=== PATIENT | female | born 1940 | race Caucasian/White ===

== ENCOUNTER 2016-12-23 13:53 | Emergency (ER) | payer MEDICARE ==
[2016-12-23] MEDS ORDERED: Sodium Chloride 0.9% 1000 ML 1,000 ML IV STA (14:47)
--- NOTE | 2016-12-23 14:47 | ERPHSYRPT ---
- History of Present Illness Time Seen by Provider: 12/23/16 14:36 Source: patient Exam Limitations: no limitations Patient Subjective Stated Complaint: pt here for loose stools since 12/20 , states incont of stool, chills,aches,less than 10 stools a day Triage Nursing Assessment: pt alert, resp easy, skin w/d pale, no edema moves all ext but is weak Physician History: The patient is a 76-year-old female with her son complaining of diarrhea for at least 2 days. At times she says is very watery and mucousy. She has 5-10 stools every day. She denies nausea or vomiting. She states she has abdominal cramps. She also complains of skin irritation around the rectum from constant diarrhea. She states that she had sweats last night and was chilled. Her past medical history is significant for coronary artery disease, gout, high cholesterol, hypertension, hypothyroidism, GERD, and depression. Timing/Duration: day(s) (2) Severity: moderate Modifying Factors: Improves With: nothing Associated Symptoms: abdominal pain (diarrhea), fever Allergies/Adverse Reactions: venom-honey bee [bee venom (honey bee)] Allergy (Intermediate, Verified 11:52) colchicine Allergy (Mild, Verified 04/09/16 11:52) Hives Latex, Natural Rubber Allergy (Mild, Verified 04/09/16 11:52) Rash Sulfa (Sulfonamide Antibiotics) Allergy (Mild, Verified 04/09/16 11:52) Hives Home Medications: Allopurinol 300 mg [Zyloprim 300 mg] 300 mg PO DAILY 12/08/15 [History] Aspirin/Calcium Carbonate/Mag [Aspirin Buffered 325 mg Tab] 325 mg PO DAILY [History] Docusate Sodium [Stool Softener] 100 mg PO Q8HPRN PRN 12/08/15 [History] Fluoxetine HCl [Prozac] 40 mg PO DAILY 12/08/15 [History] Hydrochlorothiazide 25 mg [hydroDIURIL 25 MG] 25 mg PO DAILY 12/08/15 [ History] Levothyroxine Sodium 50 Mcg [Synthroid 50 Mcg] 50 mcg PO DAILY 12/08/15 [ History] Metoprolol Succinate 50 mg [Toprol Xl 50 MG] 50 mg PO DAILY 12/08/15 [ History] Nitroglycerin 0.4 mg Tablet [Nitrostat 0.4 MG Tablet] 0.4 mg SL Q5MIN PRN MR X 3 PRN 12/08/15 [History] Omeprazole 20 MG [Prilosec 20 mg] 20 mg PO BID 12/08/15 [History] Simvastatin 40 mg [Zocor 40 mg] 40 mg PO HS 12/08/15 [History] Torsemide 10 mg PO BID 12/08/15 [History] Fluticasone Propionate [Flonase NASAL] 16 gm NS BID 01/21/16 [History] Hydroxyzine HCl 25 mg [Atarax 25 mg] 25 mg PO QID PRN 01/21/16 [History] Hx Tetanus, Diphtheria Vaccination/Date Given: Yes Hx Influenza Vaccination/Date Given: Yes Hx Pneumococcal Vaccination/Date Given: Yes Immunizations Up to Date: Yes - Review of Systems Constitutional: Fever, Chills Eyes: No Symptoms Ears, Nose, & Throat: No Symptoms Respiratory: No Cough, No Dyspnea Cardiac: No Chest Pain, No Edema, No Syncope Abdominal/Gastrointestinal: Abdominal Pain (cramping), Diarrhea Genitourinary Symptoms: No Dysuria Musculoskeletal: No Back Pain, No Neck Pain Skin: No Rash Neurological: No Dizziness, No Focal Weakness, No Sensory Changes Psychological: No Symptoms Endocrine: No Symptoms Hematologic/Lymphatic: No Symptoms Immunological/Allergic: No Symptoms All Other Systems: Reviewed and Negative - Past Medical History Pertinent Past Medical History: Yes Neurological History: Migraines ENT History: Cataracts Cardiac History: Angina, Congestive Heart Failure, Coronary Artery Disease, High Cholesterol, Hypertension, Peripheral Vascular Disease Respiratory History: Asthma, CHF, COPD, Emphysema, Pneumonia, Other Endocrine Medical History: Hypothyroidism Musculoskeletal History: Degenerative Disk Disease GI Medical History: GERD, Hemorrhoids, Hernia, Polyps History: Other Psycho-Social History: Anxiety, Depression Female Reproductive Disorders: No Pertinent History Other Medical History: RESTRICTIVE LUNG DISEASE, OBESITY, SLEEP APNEA, CHRONIC FATIGUE. frequent UTIs - Past Surgical History Past Surgical History: Yes Neuro Surgical History: No Pertinent History Cardiac: Cardiac Catheterization Respiratory: No Pertinent History Gastrointestinal: Appendectomy, Cholecystectomy Genitourinary: No Pertinent History Musculoskeletal: Orthopedic Surgery Female Surgical History: Hysterectomy Other Surgical History: Bilateral knee surgery. cysts removed from ovaries. - Social History Smoking Status: Former smoker How long have you smoked: 20 years Exposure to second hand smoke: No Drug Use: none Patient Lives Alone: No Significant Family History: no pertinent family hx - Female History Hx Last Menstrual Period: post - Nursing Vital Signs Nursing Vital Signs: Initial Vital Signs Temperature 97.5 F 12/23/16 13:54 Pulse Rate 97 H 12/23/16 13:54 Respiratory Rate 16 12/23/16 13:54 Blood Pressure 154/74 12/23/16 13:54 O2 Sat by Pulse Oximetry 92 L 12/23/16 13:54 Pain Scale Pain Intensity 0 - Physical Exam General Appearance: no apparent distress, alert Eye Exam: PERRL/EOMI, eyes nml inspection Ears, Nose, Throat Exam: normal ENT inspection, TMs normal, pharynx normal, moist mucous membranes Neck Exam: normal inspection, non-tender, supple, full range of motion Respiratory Exam: normal breath sounds, lungs clear, No respiratory distress Cardiovascular Exam: regular rate/rhythm, normal heart sounds, normal peripheral pulses Gastrointestinal/Abdomen Exam: soft (obese) Pelvic Exam: not done Rectal Exam: not done Back Exam: normal inspection, normal range of motion, No CVA tenderness, No vertebral tenderness Extremity Exam: normal inspection, normal range of motion, pelvis stable Neurologic Exam: alert, oriented x 3, cooperative, normal mood/affect, nml cerebellar function, nml station & gait, sensation nml, No motor deficits Skin Exam: normal color, warm, dry, No rash Lymphatic Exam: No adenopathy SpO2 Interpretation: normal SpO2: 92 Oxygen Delivery: Room Air Ordered Tests: Medication Summary Discontinued Medications Generic Name Dose Route Start Last Admin Trade Name Freq PRN Reason Stop Dose Admin Sodium Chloride 1,000 mls @ 999 mls/hr 12/23/16 14:47 12/23/16 14:53 Sodium Chloride 0.9% 1000 Ml IV 12/23/16 15:47 999 mls/hr .Q1H1M STA Administration Sodium Chloride Confirm 12/23/16 14:51 Sodium Chloride 0.9% 1000 Ml Administered 12/23/16 14:52 Dose 1,000 mls @ ud .ROUTE .K-MED ONE Lab/Rad Data: Laboratory Result Diagrams 12/23/16 14:20 12/23/16 14:20 Laboratory Results 12/23/16 12/23/16 12/23/16 Range/Units 16:55 14:47 14:20 WBC (4.0-10.5) K/mm3 RBC (4.1-5.4) M/mm3 Hgb (12.0-16.0) gm/dl Hct (35-47) % MCV (78-100) fl MCH (26-32) pg MCHC (32-36) g/dl RDW (11.5-14.0) % Plt Count (150-450) K/mm3 MPV (6-9.5) fl Segmented Neutrophils (36.0-66.0) % Lymphocytes (Manual) (24-44) % Monocytes (Manual) (0.0-12.0) % Eosinophils (Manual) (0.00-3.0) % Differential Comment Platelet Estimate (NORMAL) Anisocytosis Sodium 143 (136-145) mEq/L Potassium 4.4 (3.5-5.1) mEq/L Chloride 107 (98-107) mEq/L Carbon Dioxide 22.3 (21-32) mEq/L Anion Gap 18.1 H (5-15) MEQ/L BUN 51 H (9-20) mg/dL Creatinine 1.94 H (0.55-1.30) mg/dl Estimated GFR 27 ML/MIN Glucose 128 H (70-110) MG/DL Lactic Acid 0.8 2.4 H (0.4-2.0) Calcium 8.7 (8.5-10.1) mg/dL 12/23/16 Range/Units 14:20 WBC 10.0 (4.0-10.5) K/mm3 RBC 3.37 L (4.1-5.4) M/mm3 Hgb 10.1 L (12.0-16.0) gm/dl Hct 32.7 L (35-47) % MCV 97.0 (78-100) fl MCH 29.9 (26-32) pg MCHC 30.9 L (32-36) g/dl RDW 15.9 H (11.5-14.0) % Plt Count 214 (150-450) K/mm3 MPV 11.1 H (6-9.5) fl Segmented Neutrophils 78 H (36.0-66.0) % Lymphocytes (Manual) 20 L (24-44) % Monocytes (Manual) 1 (0.0-12.0) % Eosinophils (Manual) 1 (0.00-3.0) % Differential Comment ABNORMAL Platelet Estimate NORMAL (NORMAL) Anisocytosis 1+ Sodium (136-145) mEq/L Potassium (3.5-5.1) mEq/L Chloride (98-107) mEq/L Carbon Dioxide (21-32) mEq/L Anion Gap (5-15) MEQ/L BUN (9-20) mg/dL Creatinine (0.55-1.30) mg/dl Estimated GFR ML/MIN Glucose (70-110) MG/DL Lactic Acid (0.4-2.0) Calcium (8.5-10.1) mg/dL - Progress Progress: improved Counseled pt/family regarding: lab results, diagnosis, need for follow-up - Departure Time of Disposition: 17:21 Departure Disposition: Home Clinical Impression: Diarrhea, Dehydration, Acute renal failure Condition: Stable Critical Care Time: No Referrals: PAULO DELONG [Primary Care Provider] - Instructions: Diarrhea and Traveler's Diarrhea -- Adult Additional Instructions: You had diarrhea that cause dehydration. You were given IV fluids in the ER. Continue to stay well hydrated at home. Take ciprofloxacin 500 mg 2 times a day for 3 days. Follow-up as needed. Prescriptions: Ciprofloxacin [Cipro 500 MG] 500 mg PO BID #6 tablet
[2016-12-23] MEDS ORDERED: Sodium Chloride 0.9% 1000 ML 1,000 ML ONE (14:51)
[2016-12-23 14:59] LABS: Lactic Acid 2.4 (0.4-2.0)
[2016-12-23 15:16] LABS: Mean Platelet Volume 11.1 fl (6-9.5); Platelet Count 214 K/mm3 (150-450); Red Blood Count 3.37 M/mm3 (4.1-5.4); Red Cell Distribution Width 15.9 % (11.5-14.0)
[2016-12-23 15:18] LABS: ANION GAP 18.1 MEQ/L (5-15); Carbon Dioxide 22.3 mEq/L (21-32); Mean Corpuscular Hemoglobin 29.9 pg (26-32); Potassium 4.4 mEq/L (3.5-5.1)
[2016-12-23 16:36] LABS: Eosinophil 1 % (0.00-3.0); Total Cells Counted 100
[2016-12-23 16:37] LABS: ANISOCYTOSIS 1+
[2016-12-23 16:38] LABS: Platelet Estimate NORMAL (NORMAL)
[2016-12-23 17:47] VITALS: BP 128/56; PULSE 70
[2016-12-25 10:00] VITALS: O2SAT 92
== END 2016-12-23 17:46 | disposition home or self-care (01) ==
LOC: ED 13:53
DX: R19.7 Diarrhea, unspecified (principal); E86.0 Dehydration; N17.9 Acute kidney failure, unspecified; R10.9 Unspecified abdominal pain; I25.2 Old myocardial infarction; M10.9 Gout, unspecified; E78.00 Pure hypercholesterolemia, unspecified; I10 Essential (primary) hypertension; E03.9 Hypothyroidism, unspecified; K21.9 Gastro-esophageal reflux disease without esophagitis
CPT/HCPCS: 99284; 36000; 96360; 36415; 85025; 80048; 83605; P9612

== ENCOUNTER 2017-09-01 07:59 | Observation (INO) | payer MEDICARE ==
[2017-09-01] MEDS ORDERED: Zofran 4 MG/2 ML VIAL IV ONE (08:37)
[2017-09-01] MEDS ORDERED: Sodium Chloride 0.9% 1000 ML 1,000 ML IV SCH ×2 (08:45→14:54)
--- NOTE | 2017-09-01 08:50 | ERPHSYRPT ---
- History of Present Illness Time Seen by Provider: 09/01/17 08:15 Historian: patient Exam Limitations: clinical condition Patient Subjective Stated Complaint: Emesis and diarrhea x3 days, states "I think I have food posioning." Triage Nursing Assessment: Pt presents to the ED with complaints of abdominal cramping, emesis and diarrhea x3 days. Pt states she believes she ate something bad and has food posioning. No distess noted, skin PWD. Physician History: PATIENT WITH A HISTORY OF CHF, COPD, CORONARY ARTERY DISEASE COMPLAINS OF FREQUENT EPISODES OF EMESIS AND WATERY DIARRHEA X 3 DAYS ASSOCIATED WITH GENERALIZED ABDOMINAL PAIN. DENIES URINARY SYMPTOMS, FEVER OR CHILLS. Timing/Duration: day(s) Quality: cramping Abdominal Pain Onset Location: generalized abdomen Pain Radiation: no radiation Severity of Pain-Max: moderate Severity of Pain-Current: moderate Modifying Factors: Improves With: defecating, vomiting (AND DIARRHEA) Associated Symptoms: diarrhea, vomiting Previous symptoms: no prior history Allergies/Adverse Reactions: venom-honey bee [bee venom (honey bee)] Allergy (Intermediate, Verified 14:06) colchicine Allergy (Mild, Verified 03/19/17 14:06) Hives Latex, Natural Rubber Allergy (Mild, Verified 03/19/17 14:06) Rash Sulfa (Sulfonamide Antibiotics) Allergy (Mild, Verified 03/19/17 14:06) Hives Home Medications: Allopurinol 300 mg [Zyloprim 300 mg] 300 mg PO DAILY 12/08/15 [History] Aspirin/Calcium Carbonate/Mag [Aspirin Buffered 325 mg Tab] 325 mg PO DAILY [History] Docusate Sodium [Stool Softener] 100 mg PO Q8HPRN PRN 12/08/15 [History] Fluoxetine HCl [Prozac] 40 mg PO DAILY 12/08/15 [History] Hydrochlorothiazide 25 mg [hydroDIURIL 25 MG] 25 mg PO DAILY 12/08/15 [ History] Levothyroxine Sodium 50 Mcg [Synthroid 50 Mcg] 50 mcg PO DAILY 12/08/15 [ History] Metoprolol Succinate 50 mg [Toprol Xl 50 MG] 50 mg PO DAILY 12/08/15 [ History] Nitroglycerin 0.4 mg Tablet [Nitrostat 0.4 MG Tablet] 0.4 mg SL Q5MIN PRN MR X 3 PRN 12/08/15 [History] Omeprazole 20 MG [Prilosec 20 mg] 20 mg PO BID 12/08/15 [History] Simvastatin 40 mg [Zocor 40 mg] 40 mg PO HS 12/08/15 [History] Torsemide 10 mg PO BID 12/08/15 [History] Fluticasone Propionate [Flonase NASAL] 16 gm NS BID 01/21/16 [History] Hydroxyzine HCl 25 mg [Atarax 25 mg] 25 mg PO QID PRN 01/21/16 [History] Hx Tetanus, Diphtheria Vaccination/Date Given: Yes Hx Influenza Vaccination/Date Given: Yes Hx Pneumococcal Vaccination/Date Given: Yes Immunizations Up to Date: Yes - Review of Systems Constitutional: No Fever, No Chills Eyes: No Symptoms Ears, Nose, & Throat: No Symptoms Respiratory: No Symptoms, No Cough, No Dyspnea Cardiac: No Symptoms, No Chest Pain, No Edema, No Syncope Abdominal/Gastrointestinal: Abdominal Pain, Nausea, Vomiting, Diarrhea Genitourinary Symptoms: No Symptoms, No Dysuria Musculoskeletal: No Symptoms, No Back Pain, No Neck Pain Skin: No Rash Neurological: No Dizziness, No Focal Weakness, No Sensory Changes Psychological: No Symptoms Endocrine: No Symptoms All Other Systems: Reviewed and Negative - Past Medical History Pertinent Past Medical History: Yes Neurological History: Migraines ENT History: Cataracts Cardiac History: Angina, Congestive Heart Failure, Coronary Artery Disease, High Cholesterol, Hypertension, Peripheral Vascular Disease Respiratory History: Asthma, CHF, COPD, Emphysema, Pneumonia, Other Endocrine Medical History: Hypothyroidism Musculoskeletal History: Degenerative Disk Disease GI Medical History: GERD, Hemorrhoids, Hernia, Polyps History: Other Psycho-Social History: Anxiety, Depression Female Reproductive Disorders: No Pertinent History Other Medical History: RESTRICTIVE LUNG DISEASE, OBESITY, SLEEP APNEA, CHRONIC FATIGUE. frequent UTIs - Past Surgical History Past Surgical History: Yes Neuro Surgical History: No Pertinent History Cardiac: Cardiac Catheterization Respiratory: No Pertinent History Gastrointestinal: Appendectomy, Cholecystectomy Genitourinary: No Pertinent History Musculoskeletal: Orthopedic Surgery Female Surgical History: Hysterectomy Other Surgical History: Bilateral knee surgery. cysts removed from ovaries. - Social History Smoking Status: Former smoker How long have you smoked: 20 years Exposure to second hand smoke: No Drug Use: none Patient Lives Alone: No Significant Family History: no pertinent family hx - Female History Hx Now: No - Nursing Vital Signs Nursing Vital Signs: Initial Vital Signs Temperature 97.9 F 09/01/17 08:06 Pulse Rate 120 H 09/01/17 08:06 Respiratory Rate 16 09/01/17 08:06 Blood Pressure 184/80 09/01/17 08:06 O2 Sat by Pulse Oximetry 94 L 09/01/17 08:06 Pain Scale Pain Intensity 0 - Physical Exam General Appearance: no apparent distress, alert Eye Exam: PERRL/EOMI, eyes nml inspection Ears, Nose, Throat Exam: normal ENT inspection, pharynx normal, moist mucous membranes Neck Exam: normal inspection, non-tender, supple, full range of motion Respiratory Exam: normal breath sounds, lungs clear, No respiratory distress Cardiovascular Exam: regular rate/rhythm, normal heart sounds Gastrointestinal/Abdomen Exam: soft, normal bowel sounds, tenderness ( PERIUMBILICAL TENDERNESS AND LLQ TENDERNESS), No mass Rectal Exam: normal exam, normal rectal tone, other (BROWN STOOL) Back Exam: normal inspection, normal range of motion, No CVA tenderness, No vertebral tenderness Extremity Exam: normal inspection, normal range of motion, pelvis stable, pedal edema (2+ PITTING) Neurologic Exam: alert, oriented x 3, cooperative, normal mood/affect, nml cerebellar function, sensation nml, No motor deficits Skin Exam: normal color, warm, dry SpO2 Interpretation: normal SpO2: 94 Oxygen Delivery: Room Air - CT Exams Abdomen/Pelvis CT Interpretation: Discussed w/radiologist (AGAIN SIGMOID DIVERTICULOSIS WITHOUT DIVERTICULITIS,. ) Ordered Tests: Active Orders 24 hr Category Date Time Status IV Insertion STAT Care 09/01/17 08:37 Active ABDOMEN AND PELVIS W/0 CONTRAS [CT] Stat Exams 09/01/17 08:38 Completed AMYLASE Stat Lab 09/01/17 08:54 Completed BLOOD CULTURE Stat Lab 09/01/17 09:25 Received CBC W DIFF Stat Lab 09/01/17 08:54 Completed CMP Stat Lab 09/01/17 08:54 Completed LIPASE Stat Lab 09/01/17 08:54 Completed Manual Differential NC Stat Lab 09/01/17 08:54 Completed Occult Blood,Stool Other Stat Lab 09/01/17 12:50 Completed PROTIME WITH INR Stat Lab 09/01/17 08:54 Completed Transfer Order Routine Transfer 09/01/17 Ordered Medication Summary Generic Name Dose Route Start Last Admin Trade Name Sadaf PRN Reason Stop Dose Admin Sodium Chloride 1,000 mls @ 250 mls/hr 09/01/17 08:45 09/01/17 09:03 Sodium Chloride 0.9% 1000 Ml IV 10/01/17 08:44 250 mls/hr .Q4H JAMEE Administration Discontinued Medications Generic Name Dose Route Start Last Admin Trade Name Sadaf PRN Reason Stop Dose Admin Ondansetron HCl 4 mg 09/01/17 08:37 09/01/17 09:03 Zofran 4 Mg/2 Ml Vial IV 09/01/17 08:38 4 mg STAT ONE Administration Ondansetron HCl Confirm 09/01/17 08:57 Zofran 4 Mg/2 Ml Vial Administered 09/01/17 08:58 Dose 4 mg .ROUTE .STK-MED ONE Pantoprazole Sodium 40 mg 09/01/17 08:52 09/01/17 09:03 Protonix 40 Mg Iv IV 09/01/17 08:53 40 mg STAT ONE Administration Pantoprazole Sodium Confirm 09/01/17 08:57 Protonix 40 Mg Iv Administered 09/01/17 08:58 Dose 40 mg IV .STK-MED ONE Lab/Rad Data: Laboratory Result Diagrams 09/01/17 08:54 Laboratory Results 09/01/17 09/01/17 09/01/17 Range/Units 12:50 08:54 08:54 WBC (4.0-10.5) K/mm3 RBC (4.1-5.4) M/mm3 Hgb (12.0-16.0) gm/dl Hct (35-47) % MCV (78-100) fl MCH (26-32) pg MCHC (32-36) g/dl RDW (11.5-14.0) % Plt Count (150-450) K/mm3 MPV (6-9.5) fl Segmented Neutrophils (36.0-66.0) % Band Neutrophils (0.0-2.0) % Lymphocytes (Manual) (24-44) % Monocytes (Manual) (0.0-12.0) % Eosinophils (Manual) (0.00-3.0) % Platelet Estimate (NORMAL) RBC Morphology PT 13.2 H (9.95-12.35) SECONDS INR 1.19 (0.8-3.0) Anion Gap (5-15) MEQ/L Stool Occult Blood NEGATIVE (Negative) 09/01/17 Range/Units 08:54 WBC 9.4 (4.0-10.5) K/mm3 RBC 4.13 (4.1-5.4) M/mm3 Hgb 12.0 (12.0-16.0) gm/dl Hct 38.3 (35-47) % MCV 92.7 (78-100) fl MCH 29.1 (26-32) pg MCHC 31.3 L (32-36) g/dl RDW 15.5 H (11.5-14.0) % Plt Count 205 (150-450) K/mm3 MPV 11.6 H (6-9.5) fl Segmented Neutrophils 73 H (36.0-66.0) % Band Neutrophils 5 H (0.0-2.0) % Lymphocytes (Manual) 8 L (24-44) % Monocytes (Manual) 7 (0.0-12.0) % Eosinophils (Manual) 7 H (0.00-3.0) % Platelet Estimate NORMAL (NORMAL) RBC Morphology NORMAL PT (9.95-12.35) SECONDS INR (0.8-3.0) Anion Gap (5-15) MEQ/L Stool Occult Blood (Negative) - Progress Progress Note: 09/01/17 08:51 IV NORMAL SALINE 250MG/HR, ZOFRAN 4MG IV, PROTONIX 40MG IV Discussed with Dr.: Lennon (DISCUSSED WITH DR LENNON AT 1348 FOR OBSERVATION) - Departure Time of Disposition: 14:00 Departure Disposition: Observation Clinical Impression: INTRACTABLE EMESIS AND DIARRHEA, DEHYDRATION Condition: Stable Critical Care Time: No Referrals: PAULO LENNON [Primary Care Provider] -
[2017-09-01] MEDS ORDERED: PROTONIX 40 MG IV IV ONE ×2 (08:52→08:57)
[2017-09-01] MEDS ORDERED: Zofran 4 MG/2 ML VIAL ONE (08:57)
[2017-09-01] MEDS ORDERED: Sodium Chloride 0.9% 1000 ML 1,000 ML ONE (08:58)
[2017-09-01 09:03] LABS: Hematocrit 38.3 % (35-47); Mean Cell Volume 92.7 fl (78-100); Mean Corpuscular Hemoglobin 29.1 pg (26-32); Mean Corpuscular Hgb Concent. 31.3 g/dl (32-36); Mean Platelet Volume 11.6 fl (6-9.5); Platelet Count 205 K/mm3 (150-450); Red Blood Count 4.13 M/mm3 (4.1-5.4); Red Cell Distribution Width 15.5 % (11.5-14.0); White Blood Count 9.4 K/mm3 (4.0-10.5)
[2017-09-01 09:10] LABS: INR 1.19 (0.8-3.0)
[2017-09-01 09:50] LABS: BAND 5 % (0.0-2.0); Eosinophil 7 % (0.00-3.0); Lymphocytes 8 % (24-44); Monocyte 7 % (0.0-12.0); Neutrophils 73 % (36.0-66.0); Platelet Estimate NORMAL (NORMAL); Total Cells Counted 100
--- NOTE | 2017-09-01 09:59 | XRAY ---
Indication: Nausea and vomiting. Multiple contiguous axial images obtained through the abdomen and pelvis without contrast as ordered. Comparison: July 10, 2008. Lung bases demonstrate minimal bibasilar dependent atelectasis. No infiltrate or effusion. Heart is not enlarged. Noncontrasted stomach and bowel loops appear nonobstructed. Again minimal sigmoid diverticulosis without diverticulitis. Previous reported appendectomy, hysterectomy, and cholecystectomy. No free fluid/air. Stable fatty liver and small exophytic right renal cyst. Remaining pancreas, spleen, adrenal glands, kidneys, ureters, and bladder appear unremarkable for noncontrast exam. There remains mild aortoiliac calcifications without AAA. Osseous structures intact again with advanced multilevel degenerative spondylosis, mild scoliosis, and mild bilateral hip degenerative arthropathy. Impression: 1. Again sigmoid diverticulosis without diverticulitis. 2. Stable fatty liver and small right renal cyst. 3. No new or acute intra-abdominal/pelvic abnormalities on this noncontrast exam. CT DI 27.16
[2017-09-01] MEDS ORDERED: NORCO 7.5/325 MG TAB PO PRN (14:54)
[2017-09-01] MEDS ORDERED: Nitrostat 0.4 MG Tablet SL PRN (14:54)
[2017-09-01] MEDS ORDERED: Zofran 4 MG/2 ML VIAL IV PRN (14:54)
[2017-09-01] MEDS ORDERED: D5W/0.45NS W/ 20mEq KCl 1000 ML 1,000 ML IV SCH (17:00)
[2017-09-01 19:05] LABS: INFLUENZA A NEGATIVE (NEGATIVE); INFLUENZA B NEGATIVE (NEGATIVE); RESPIRATORY SYNCTIAL VIRUS NEGATIVE (Negative)
[2017-09-01] MEDS ORDERED: ZYLOPRIM 300 MG PO SCH (22:00)
[2017-09-01] MEDS: Toprol Xl 50 MG PO SCH (22:21)
[2017-09-02 06:11] LABS: Granulocyte Absolute (ANC) 3.59 (1.4-6.9); Hematocrit 31.8 % (35-47); Hemoglobin 9.7 gm/dl (12.0-16.0); Mean Cell Volume 94.9 fl (78-100); Mean Corpuscular Hgb Concent. 30.5 g/dl (32-36); Mean Platelet Volume 10.4 fl (6-9.5); Platelet Count 163 K/mm3 (150-450); Red Blood Count 3.35 M/mm3 (4.1-5.4); Red Cell Distribution Width 15.6 % (11.5-14.0)
[2017-09-02 06:26] LABS: Mean Corpuscular Hemoglobin 28.9 pg (26-32)
[2017-09-02 06:32] LABS: ALBUMIN 3.2 g/dL (3.5-5.0); ANION GAP 13.9 MEQ/L (5-15); BILIRUBIN,TOTAL 0.2 mg/dL (0.2-1.3); Calcium 8.1 mg/dL (8.4-10.2); Creatinine 1 1.65 mg/dL (0.52-1.04); Potassium 4.9 mmol/L (3.5-5.1); Total Protein 5.8 g/dL (6.3-8.2)
--- NOTE | 2017-09-02 08:07 | PCM.DCORD ---
- Discharge Discharge Date: 09/02/17 Prescriptions: No Action Omeprazole 20 MG [Prilosec 20 mg] 20 mg PO BID Simvastatin 40 mg [Zocor 40 mg] 40 mg PO HS Metoprolol Succinate 50 mg [Toprol Xl 50 MG] 50 mg PO DAILY Aspirin/Calcium Carbonate/Mag [Aspirin Buffered 325 mg Tab] 325 mg PO DAILY Nitroglycerin 0.4 mg Tablet [Nitrostat 0.4 MG Tablet] 0.4 mg SL Q5MIN PRN MR X 3 PRN PRN Reason: Chest Pain Allopurinol 300 mg [Zyloprim 300 mg] 300 mg PO HS Fluticasone Propionate [Flonase NASAL] 16 gm NS BIDPRN PRN PRN Reason: Allergies Irbesartan [Irbesartan] 1 tab PO DAILY Prednisone [Prednisone] 5 mg PO DAILY Ergocalciferol (Vitamin D2) [Vitamin D] 50,000 unit PO UD Follow up with: PAULO DELONG [Primary Care Provider] - 1 Week
[2017-09-02 08:54] LABS: BAND 1 % (0.0-2.0); Eosinophil 9 % (0.00-3.0); Lymphocytes 37 % (24-44); Metamyelocyte 1 %; Monocyte 3 % (0.0-12.0); Neutrophils 49 % (36.0-66.0); Total Cells Counted 100
[2017-09-02 08:58] LABS: Platelet Estimate NORMAL (NORMAL)
[2017-09-02 08:59] LABS: Hypochromia 1+
[2017-09-02] MEDS ORDERED: PROTONIX 40 MG IV IV SCH (10:00)
[2017-09-02] MEDS ORDERED: Prozac 20 MG PO SCH (10:00)
[2017-09-02] MEDS ORDERED: SYNTHROID 50 MCG PO SCH (10:00)
[2017-09-02] MEDS ORDERED: Lopressor 50 MG PO SCH (10:00)
[2017-09-02] MEDS: Toprol Xl 50 MG PO SCH (11:04)
[2017-09-02 11:23] VITALS: BP 130/56; PULSE 83; O2SAT 95
--- NOTE | 2017-09-04 09:39 | SSS ---
DISCHARGE DIAGNOSES: 1) GASTROENTERITIS. 2) DEHYDRATION. HISTORY: The patient is a 77 year-old white female who reports that she had eaten at the [employer] and afterwards a few hours later she began having sharp epigastric abdominal pain followed by vomiting and diarrhea. The patient presented to the emergency room and subsequently admitted to the hospital for IV fluid hydration. PAST MEDICAL/SURGICAL HISTORY: Significant for coronary artery disease, chronic obstructive pulmonary disease. HOME MEDICATIONS: Allopurinol, aspirin, fluoxetine, hydrodiuril, levofloxacin, metoprolol, nitroglycerin, omeprazole, Simvastatin, Torsemide, fluticasone, hydroxyzine. ALLERGIES: BEE VENUM. COLCHICINE, LATEX, SULFA. PHYSICAL EXAMINATION: Revealed a morbidly obese, white female in no obvious distress. Her vital signs showed a temperature of 97.9F, pulse 120, respiratory rate 16, blood pressure 184/80. O2 saturation 94% on room air on admission from the emergency room. Most recent vital signs showed her temperature to be 98.1F, pulse 77, respiratory rate 20, blood pressure 124/54. O2 saturation 95% on room air. HEENT: Normocephalic, atraumatic. Pupils equal round reactive to light. Extraocular movements intact. Oropharynx is pink and moist. NECK: Supple without lymphadenopathy, thyromegaly or JVD. CHEST: Clear to auscultation with good air movement bilaterally. HEART: Regular rate and rhythm without murmurs, rubs or gallops. ABDOMEN: Minimally tender in the epigastric region presently. No palpable masses are felt. EXTREMITIES: Without clubbing, cyanosis or edema. NEUROLOGIC: The patient is alert and oriented x3. LAB DATA AND TESTS: Showed influenza A, B and respiratory syncytial virus to be negative. Occult blood in the stool was negative. She had BUN 31, creatinine 1.6. Electrolytes were normal. Liver enzymes were normal. Lipase was normal. She had a CBC showing hemoglobin 12.0, white blood cell count 9,400, PLT count 205,000. There did appear to be a left shift with 5 bands and 73 polys. Amylase 22. The patient had CT scan showing sigmoid diverticulosis without diverticulitis, stable fatty liver. No new acute intra-abdominal or pelvic abnormalities were seen on noncontrast examination. HOSPITAL COURSE: The patient was given IV fluids and was feeling much better after the first liter of fluids but was kept overnight for further evaluation and management. She had no further vomiting or diarrhea. She was able to take clear liquids. A repeat laboratory study showed her BUN 29, creatinine 1.65, sugar 114 fasting. Her white blood cell count was 7,000. Her hemoglobin had dropped to 9.7 which we felt was dilutional since the occult blood stools were negative. The PLT count was 163,000. The patient is looking back to her normal state of health and thought to be ready for discharge home. DISCHARGE PLANS: The patient will be discharged home on her usual home medications as listed above. She will have follow up appointment in the office in one week. She is to call if she has any further problems in the interim.
== END 2017-09-02 13:30 | disposition home or self-care (01) ==
LOC: ED 07:59 → MED SURG 14:51
PROVIDERS: ADMIT Family Medicine; ATTEND Family Medicine
DX: K52.9 Noninfective gastroenteritis and colitis, unspecified (principal); E86.0 Dehydration; I25.10 Atherosclerotic heart disease of native coronary artery without angina pectoris; J44.9 Chronic obstructive pulmonary disease, unspecified; Z79.899 Other long term (current) drug therapy; E66.01 Morbid (severe) obesity due to excess calories
CPT/HCPCS: 36000; 36415; 74176; 80053; 82150; 82272; 83690; 85025; 85610; 87040; 87631; 94660; 94760; 96360; 96361; 96374; 96375; 99285; G0378; 96365; 99284; J2405; A9270-GY

== ENCOUNTER 2019-06-29 17:07 | Observation (INO) | payer MEDICARE ==
--- NOTE | 2019-06-29 17:22 | ERPHSYRPT ---
- History of Present Illness Time Seen by Provider: 06/29/19 17:21 Source: patient Exam Limitations: no limitations Physician History: Patient is a 79-year-old female with a past medical history significant for CHF , COPD, hypertension, chronic bilateral lower extremity edema, and gout presents with a chief complaint of nausea, vomiting in addition to diarrhea. Onset reportedly was in the beginning half either the first or second week of May 2019. She reports having multiple episodes of nonbilious/nonbloody vomiting in addition to nonbloody diarrhea since that time. She also endorsed feeling generalized weakness and reportedly has not had the strength to get out of bed to be evaluated. She has not followed up with her primary care provider because she states that her provider is out of town who will not be back until July of this year. She currently lives with a roommate who encouraged her to come to the emergency department to get evaluated. She denied having increased shortness of breath beyond her baseline and uses supplemental oxygen via nasal cannula 2 L/min. She denies fever, chills, recent travel outside of the country and recent sick contacts. She denies recent antibiotic use. Poorly takes aspirin daily, specifically 325 mg for her aches and pains which she complained about today, specifically her neck and lower back. Denies taking anticoagulants. She endorsed not being compliant with a low-sodium diet and reportedly has been taking her Lasix as prescribed. She endorsed wearing compression stockings but does not wear these daily and reports that she wears these every other day. Allergies/Adverse Reactions: venom-honey bee [bee venom (honey bee)] Allergy (Intermediate, Verified 14:06) colchicine Allergy (Mild, Verified 03/19/17 14:06) Hives Latex, Natural Rubber Allergy (Mild, Verified 03/19/17 14:06) Rash Sulfa (Sulfonamide Antibiotics) Allergy (Mild, Verified 03/19/17 14:06) Hives Home Medications: Allopurinol 300 mg [Zyloprim 300 mg] 300 mg PO HS 12/08/15 [History] Aspirin/Calcium Carbonate/Mag [Aspirin Buffered 325 mg Tab] 325 mg PO DAILY [History] Metoprolol Succinate 50 mg [Toprol Xl 50 MG] 50 mg PO DAILY 12/08/15 [ History] Nitroglycerin 0.4 mg Tablet [Nitrostat 0.4 MG Tablet] 0.4 mg SL Q5MIN PRN MR X 3 PRN 12/08/15 [History] Simvastatin 40 mg [Zocor 40 mg] 40 mg PO HS 12/08/15 [History] Fluticasone Propionate [Flonase NASAL] 16 gm NS BIDPRN PRN 01/21/16 [ History] Ergocalciferol (Vitamin D2) [Vitamin D] 50,000 unit PO UD 09/01/17 [History] Irbesartan 1 tab PO DAILY 09/01/17 [History] predniSONE [Prednisone] 5 mg PO DAILY 09/01/17 [History] Famotidine 20 mg [Pepcid 20 MG] 1 tab PO BID 09/02/17 [History] Fluticasone/Salmeterol [Advair 100-50 Diskus] 1 each IH DAILY 06/29/19 [History] Furosemide [Lasix] 40 mg PO BID 06/29/19 [History] Levothyroxine Sodium 25 mg PO DAILY 06/29/19 [History] Hx Tetanus, Diphtheria Vaccination/Date Given: Yes Hx Influenza Vaccination/Date Given: Yes Hx Pneumococcal Vaccination/Date Given: Yes - Review of Systems Constitutional: Weakness, No Fever, No Chills Eyes: No Symptoms Ears, Nose, & Throat: No Symptoms Respiratory: Dyspnea Cardiac: No Symptoms, Edema, Orthopnea, No Palpitations, No PND Abdominal/Gastrointestinal: Nausea, Vomiting, Diarrhea, No Abdominal Pain, No Hematemesis, No Hematochezia Genitourinary Symptoms: No Dysuria, No Frequency Musculoskeletal: Back Pain, Neck Pain Skin: No Symptoms Neurological: No Symptoms Psychological: No Symptoms All Other Systems: Reviewed and Negative - Past Medical History Pertinent Past Medical History: Yes Neurological History: Migraines ENT History: Cataracts Cardiac History: Angina, Congestive Heart Failure, Coronary Artery Disease, High Cholesterol, Hypertension, Peripheral Vascular Disease Respiratory History: Asthma, CHF, COPD, Emphysema, Pneumonia, Other Endocrine Medical History: Hypothyroidism Musculoskeletal History: Degenerative Disk Disease GI Medical History: GERD, Hemorrhoids, Hernia, Polyps History: Other Psycho-Social History: Anxiety, Depression Female Reproductive Disorders: No Pertinent History Other Medical History: RESTRICTIVE LUNG DISEASE, OBESITY, SLEEP APNEA, CHRONIC FATIGUE. frequent UTIs - Past Surgical History Past Surgical History: Yes Neuro Surgical History: No Pertinent History Cardiac: Cardiac Catheterization Respiratory: No Pertinent History Gastrointestinal: Appendectomy, Cholecystectomy Genitourinary: No Pertinent History Musculoskeletal: Orthopedic Surgery Female Surgical History: Hysterectomy Other Surgical History: Bilateral knee surgery. cysts removed from ovaries. - Social History Smoking Status: Former smoker How long have you smoked: 20 years Exposure to second hand smoke: No Drug Use: none Patient Lives Alone: No Significant Family History: no pertinent family hx - Nursing Vital Signs Nursing Vital Signs: Initial Vital Signs Temperature 97.9 F 06/29/19 17:22 Pulse Rate 103 H 06/29/19 17:22 Respiratory Rate 26 H 06/29/19 17:22 Blood Pressure 115/57 06/29/19 17:22 O2 Sat by Pulse Oximetry 95 06/29/19 17:22 Pain Scale Pain Intensity 6 - Physical Exam General Appearance: no apparent distress, alert, obese, other (The patient was sitting up in bed and appeared to be in no obvious distress) Eye Exam: PERRL/EOMI, No EOM palsy/anisocoria Ears, Nose, Throat Exam: normal ENT inspection, pharynx normal, dry mucous membranes, TM abnormal (R), TM abnormal (L), No pharyngeal erythema, No tonsillar exudate Neck Exam: normal inspection, non-tender, supple, No meningismus Respiratory Exam: diminished breath sounds, crackles/rales, No chest tenderness , No respiratory distress, No accessory muscle use, No rhonchi, No wheezing Cardiovascular Exam: normal heart sounds, tachycardia, capillary refill <2 sec, edema, other (2-3+ bilateral lower extremity edema), No pulse deficit Gastrointestinal/Abdomen Exam: soft, distention, No tenderness, No mass, No guarding, No rebound Pelvic Exam: not done Rectal Exam: deferred Back Exam: normal inspection Extremity Exam: pedal edema, swelling, tenderness, other (2-3+ bilateral lower extremity pitting edema consistent with chronic lymphedema) Neurologic Exam: alert, oriented x 3, cooperative, other (No focal weakness or motor deficit) Skin Exam: warm, dry, pale, No rash, No petechiae, No jaundice O2 Delivery: Nasal Cannula - Course Nursing assessment & vital signs reviewed: Yes - Radiology Exams Chest X-ray Interpretation: Interpreted by me, Reviewed by me (? bilateral mild interstitial edema, awaiting formal radiology review), No Pneumonia, No Pneumothorax Ordered Tests: Active Orders 24 hr Category Date Time Status EKG-ER Only STAT Care 06/29/19 18:01 Active IV Insertion STAT Care 06/29/19 18:01 Active PO Fluid Challenge STAT Care 06/29/19 18:[address] in Observation ROUTINE Care 06/29/19 19:52 Active CHEST 2 VIEWS (PA AND LAT) Stat Exams 06/29/19 18:00 Taken BMP Stat Lab 06/29/19 18:05 Completed CBC W DIFF Stat Lab 06/29/19 18:05 Completed Hepatic Function Panel Stat Lab 06/29/19 18:05 Completed LIPASE Stat Lab 06/29/19 18:05 Completed NT PRO BNP Stat Lab 06/29/19 18:05 Completed SALICYLATE Stat Lab 06/29/19 17:15 Completed TROPONIN Stat Lab 06/29/19 18:05 Completed UA W/RFX UR CULTURE Stat Lab 06/29/19 18:00 Uncollected Transfer Order Routine Transfer 06/29/19 Ordered Medication Summary Discontinued Medications Generic Name Dose Route Start Last Admin Trade Name Nachoq PRN Reason Stop Dose Admin Ondansetron HCl 4 mg 06/29/19 18:01 06/29/19 18:07 Zofran 4 Mg/2 Ml Vial IV 06/29/19 18:02 4 mg STAT ONE Administration Ondansetron HCl Confirm 06/29/19 18:06 Zofran 4 Mg/2 Ml Vial Administered 06/29/19 18:07 Dose 4 mg .ROUTE .STK-MED ONE Lab/Rad Data: Laboratory Result Diagrams 06/29/19 18:05 06/29/19 18:05 Laboratory Results 06/29/19 06/29/19 06/29/19 Range/Units 18:05 18:05 18:05 WBC 8.3 (4.0-10.5) K/mm3 RBC 3.48 L (4.1-5.4) M/mm3 Hgb 10.0 L (12.0-16.0) gm/dl Hct 32.9 L (35-47) % MCV 94.5 (78-100) fl MCH 28.7 (26-32) pg MCHC 30.4 L (32-36) g/dl RDW 18.0 H (11.5-14.0) % Plt Count 309 (150-450) K/mm3 MPV 12.0 H (7.5-11.0) fl Gran % 51.1 (36.0-66.0) % Eos # (Auto) 1.10 H (0-0.5) Absolute Lymphs (auto) 1.75 (1.0-4.6) Absolute Monos (auto) 0.68 (0.0-1.3) Lymphocytes % 21.1 L (24.0-44.0) % Monocytes % 8.2 (0.0-12.0) % Eosinophils % 13.3 H (0.00-5.0) % Basophils % 6.3 (0.0-0.4) % Absolute Granulocytes 4.24 (1.4-6.9) Basophils # 0.52 H (0-0.4) Sodium 139 (137-145) mmol/L Potassium 4.0 (3.5-5.1) mmol/L Chloride 108 H (98-107) mmol/L Carbon Dioxide 17 L (22-30) mmol/L Anion Gap 17.5 H (5-15) MEQ/L BUN 24 H (7-17) mg/dL Creatinine 1.58 H (0.52-1.04) mg/dL Estimated GFR 33.7 ML/MIN Glucose 126 H (74-106) mg/dL Calcium 9.3 (8.4-10.2) mg/dL Total Bilirubin 0.60 (0.2-1.3) mg/dL Direct Bilirubin 0.3 (0.0-0.4) mg/dL AST 31 (14-36) U/L ALT 19 (0-35) U/L Alkaline Phosphatase 116 (38-126) U/L Troponin I 0.012 (0.000-0.034) ng/mL NT-Pro-B Natriuret Pep 897 (0-1800) pg/mL Serum Total Protein 7.1 (6.3-8.2) g/dL Albumin 3.7 (3.5-5.0) g/dL Lipase 38 (23-300) U/L Salicylates (2-20) mg/dL 06/29/19 Range/Units 17:15 WBC (4.0-10.5) K/mm3 RBC (4.1-5.4) M/mm3 Hgb (12.0-16.0) gm/dl Hct (35-47) % MCV (78-100) fl MCH (26-32) pg MCHC (32-36) g/dl RDW (11.5-14.0) % Plt Count (150-450) K/mm3 MPV (7.5-11.0) fl Gran % (36.0-66.0) % Eos # (Auto) (0-0.5) Absolute Lymphs (auto) (1.0-4.6) Absolute Monos (auto) (0.0-1.3) Lymphocytes % (24.0-44.0) % Monocytes % (0.0-12.0) % Eosinophils % (0.00-5.0) % Basophils % (0.0-0.4) % Absolute Granulocytes (1.4-6.9) Basophils # (0-0.4) Sodium (137-145) mmol/L Potassium (3.5-5.1) mmol/L Chloride (98-107) mmol/L Carbon Dioxide (22-30) mmol/L Anion Gap (5-15) MEQ/L BUN (7-17) mg/dL Creatinine (0.52-1.04) mg/dL Estimated GFR ML/MIN Glucose (74-106) mg/dL Calcium (8.4-10.2) mg/dL Total Bilirubin (0.2-1.3) mg/dL Direct Bilirubin (0.0-0.4) mg/dL AST (14-36) U/L ALT (0-35) U/L Alkaline Phosphatase (38-126) U/L Troponin I (0.000-0.034) ng/mL NT-Pro-B Natriuret Pep (0-1800) pg/mL Serum Total Protein (6.3-8.2) g/dL Albumin (3.5-5.0) g/dL Lipase (23-300) U/L Salicylates < 1.0 L (2-20) mg/dL - Progress Progress: improved Progress Note: 06/29/19 20:56 Nontoxic in appearance. Labs, chest x-ray were reviewed. The patient also appears to be somewhat volume overloaded however her labs support a possible dehydration component with evidence of a mild anion gap acidosis in addition to decreasing bicarb and mild acute on chronic CKD kidney injury. A salicylate level was ordered to rule out the potential for chronic salicylate toxicity and was ultimately negative. Her chest x-ray showed possible bilateral mild interstitial edema however there is no evidence of obvious pneumonia and I am currently awaiting formal radiology review at this time. I have a low suspicion for PE or ACS equivalent at this time. Her cardiac markers and BNP were reviewed and relatively reassuring. She was treated with ondansetron emergency department and reportedly was feeling better and able to tolerate drinking a cup of water without difficulty. She was not comfortable with being discharged home nor was her roommate given the fact that she has had generalized weakness and reportedly is had trouble walking at home. I spoke to the on-call family medicine physician who agreed to admit for observation and recommended administering normal saline at 50 cc/h in addition to having the patient on a cardiac diet which was ordered by me. Only have a low suspicion for DVT at this time and her lower extremity swelling and edema is consistent with what appears to be chronic lymphedema which I suspect may be from medication noncompliance in addition to noncompliance with her compression stockings in addition to noncompliance with a low-sodium diet. Is unclear if she has been taking her Lasix as prescribed however I do not see this listed in her medication list on intake. Discussed with : Thierry (Admit for observationa administer NS at 50 cc/hr) Will see patient in: hospital (observation) Counseled pt/family regarding: lab results, diagnosis, rad results - Departure Departure Disposition: Home, Observation, Extended Care Facility Clinical Impression: Nausea and vomiting, Diarrhea, Dehydration, Increased anion gap metabolic acidosis, Chronic acquired lymphedema, Normocytic anemia, [id number] kidney injury Condition: Good Critical Care Time: No Referrals: PAULO DELONG [ACTIVE STAFF] -
[2019-06-29] MEDS ORDERED: Zofran 4 MG/2 ML VIAL IV ONE (18:01)
[2019-06-29] MEDS ORDERED: Zofran 4 MG/2 ML VIAL ONE (18:06)
[2019-06-29 18:08] LABS: Absolute Neutrophil Ct (ANC) 4.24 (1.4-6.9); BASOPHIL % 6.3 % (0.0-0.4); Basophil (Absolute #) 0.52 (0-0.4); Eosinophil % 13.3 % (0.00-5.0); Hematocrit 32.9 % (35-47); Lymphocyte (Absolute #) 1.75 (1.0-4.6); Lymphocytes % 21.1 % (24.0-44.0); Mean Cell Volume 94.5 fl (78-100); Mean Corpuscular Hemoglobin 28.7 pg (26-32); Mean Corpuscular Hgb Concent. 30.4 g/dl (32-36); Monocyte (Absolute #) 0.68 (0.0-1.3); Monocytes % 8.2 % (0.0-12.0); Neutrophil % 51.1 % (36.0-66.0); Platelet Count 309 K/mm3 (150-450); Red Blood Count 3.48 M/mm3 (4.1-5.4); White Blood Count 8.3 K/mm3 (4.0-10.5)
[2019-06-29 18:27] LABS: ALBUMIN 3.7 g/dL (3.5-5.0); ANION GAP 17.5 MEQ/L (5-15); BILIRUBIN,TOTAL 0.6 mg/dL (0.2-1.3); Calcium 9.3 mg/dL (8.4-10.2); Creatinine 1 1.58 mg/dL (0.52-1.04); Direct Bilirubin 0.3 mg/dL (0.0-0.4); TROPONIN 0.012 ng/mL (0.000-0.034); Total Protein 7.1 g/dL (6.3-8.2)
[2019-06-29] MEDS ORDERED: Zofran 4 MG/2 ML VIAL IV PRN (21:57)
[2019-06-29] MEDS ORDERED: Sodium Chloride 0.9% 1000 ML 1,000 ML IV SCH (21:57)
[2019-06-29] MEDS ORDERED: PROVENTIL 2.5 MG/3 ML NEB IH PRN (21:57)
[2019-06-29] MEDS ORDERED: ZOCOR 20MG PO SCH (23:00)
[2019-06-29] MEDS ORDERED: ZYLOPRIM 300 MG PO SCH (23:00)
[2019-06-29] MEDS: Lasix 40 MG PO SCH (23:22)
[2019-06-29] MEDS: Pepcid 20 MG PO SCH (23:22)
[2019-06-30 05:08] LABS: ANION GAP 12.3 MEQ/L (5-15); Calcium 8.8 mg/dL (8.4-10.2); Creatinine 1 1.7 mg/dL (0.52-1.04); Potassium 4.3 mmol/L (3.5-5.1)
[2019-06-30 05:12] LABS: Absolute Neutrophil Ct (ANC) 3.85 (1.4-6.9); BASOPHIL % 5.9 % (0.0-0.4); Basophil (Absolute #) 0.47 (0-0.4); Eosinophil % 11.9 % (0.00-5.0); Eosinophil (Absolute #) 0.95 (0-0.5); Hematocrit 31.2 % (35-47); Hemoglobin 9.4 gm/dl (12.0-16.0); Lymphocyte (Absolute #) 1.88 (1.0-4.6); Lymphocytes % 23.6 % (24.0-44.0); Mean Cell Volume 94.8 fl (78-100); Mean Corpuscular Hemoglobin 28.6 pg (26-32); Mean Corpuscular Hgb Concent. 30.1 g/dl (32-36); Mean Platelet Volume 11.7 fl (7.5-11.0); Monocyte (Absolute #) 0.82 (0.0-1.3); Monocytes % 10.3 % (0.0-12.0); Neutrophil % 48.3 % (36.0-66.0); Platelet Count 301 K/mm3 (150-450); Red Blood Count 3.29 M/mm3 (4.1-5.4); Red Cell Distribution Width 17.8 % (11.5-14.0)
[2019-06-30] MEDS ORDERED: ADVAIR HFA 45/21 COMMON CANISTER IH SCH (07:00)
[2019-06-30] MEDS ORDERED: Nitrostat 0.4 MG Tablet SL PRN (07:17)
[2019-06-30] MEDS ORDERED: Colace 100 MG PO PRN (07:17)
[2019-06-30] MEDS ORDERED: Flonase NASAL NS PRN (07:17)
[2019-06-30 07:30] VITALS: O2SAT 97
--- NOTE | 2019-06-30 08:50 | XRAY ---
Indication: Dyspnea. Comparison: None AP/lateral chest inflated without focal infiltrate, consolidation, or large effusion. Heart and mediastinal structures within normal limits. Stable focal eventration of the right hemidiaphragm. Bony thorax again demonstrates mild degenerative changes with interval widening of the right AC joint. Impression: Nonacute chest with chronic features.
[2019-06-30 09:47] LABS: Bacteria FEW /HPF (NEGATIVE); Bilirubin NEGATIVE (NEGATIVE); Blood LARGE Ery/ul (0-5); Epithelial Cells RARE /HPF (FEW); Glucose NEGATIVE (NEGATIVE); Hyaline Casts 26-50 /LPF (0-2); Ketones NEGATIVE (NEGATIVE); Leukocyte Esterase LARGE (NEGATIVE); Mucus SLIGHT /HPF (NEGATIVE); Nitrite NEGATIVE (NEGATIVE); Protein,Urine Dip NEGATIVE (Negative); Specific Gravity 1.008 (1.005-1.025); Urobilinogen NEGATIVE mg/dL (0-1)
[2019-06-30 09:49] LABS: Appearance HAZY (CLEAR)
[2019-06-30] MEDS ORDERED: Avapro 150 MG PO SCH (10:00)
[2019-06-30] MEDS ORDERED: Toprol Xl 50 MG PO SCH (10:00)
[2019-06-30] MEDS ORDERED: NON-FORMULARY ITEM (Fluticasone/Salmeterol [Advair 100-50 Diskus] 1 EACH) IH SCH (10:00)
[2019-06-30] MEDS ORDERED: NON-FORMULARY ITEM (Aspirin [Aspirin] 325 MG) PO SCH (10:00)
[2019-06-30] MEDS ORDERED: DELTASONE 5 MG PO SCH (10:00)
[2019-06-30] MEDS ORDERED: Ecotrin 325 MG PO SCH (10:00)
[2019-06-30] MEDS: Lasix 40 MG PO SCH (10:09)
[2019-06-30] MEDS: Pepcid 20 MG PO SCH (10:09)
[2019-06-30 11:48] LABS: 027 TOX PROD PRESUMPTIVE NEGATIVE (NEGATIVE); TOXIGENIC C. DIFF ORG NEGATIVE (NEGATIVE)
[2019-06-30 12:30] VITALS: BP 126/67; PULSE 86
--- NOTE | 2019-06-30 12:30 | PCM.HP ---
History of Present Illness - Chief Complaint Chief Complaint: dehydration, acute kidney injury, metabolic acidosis, nausea, vomiting, History of Present Illness: is a 79 year old female.patient with a past medical history significant for CHF, COPD, hypertension, chronic bilateral lower extremity edema , and gout presents with a chief complaint of nausea, vomiting in addition to diarrhea. Onset reportedly was in the beginning half either the first or second week of May 2019. She reports having multiple episodes of nonbilious/nonbloody vomiting in addition to nonbloody diarrhea since that time. She also endorsed feeling generalized weakness and reportedly has not had the strength to get out of bed to be evaluated. She has not followed up with her primary care provider because she states that her provider is out of town who will not be back until July of this year. She currently lives with a roommate who encouraged her to come to the emergency department to get evaluated. She denied having increased shortness of breath beyond her baseline and uses supplemental oxygen via nasal cannula 2 L/min. She denies fever, chills, recent travel outside of the country and recent sick contacts. She denies recent antibiotic use. Poorly takes aspirin daily, specifically 325 mg for her aches and pains which she complained about today, specifically her neck and lower back. Denies taking anticoagulants. She endorsed not being compliant with a low-sodium diet and reportedly has been taking her Lasix as prescribed. She endorsed wearing compression stockings but does not wear these daily and reports that she wears these every other day. - Review of Systems Constitutional: No Fever, No Chills Eyes: No Symptoms Ears, Nose, & Throat: No Symptoms Respiratory: No Cough, No Short Of Breath Cardiac: No Chest Pain, No Edema, No Syncope Abdominal/Gastrointestinal: No Abdominal Pain, No Nausea, No Vomiting, No Diarrhea Genitourinary Symptoms: No Dysuria Musculoskeletal: No Back Pain, No Neck Pain Skin: No Rash Neurological: No Dizziness, No Focal Weakness, No Sensory Changes Psychological: No Symptoms Endocrine: No Symptoms Hematologic/Lymphatic: No Symptoms Immunological/Allergic: No Symptoms Medications & Allergies Home Medications: Home Medication List Allopurinol 300 mg [Zyloprim 300 mg] 300 mg PO HS 12/08/15 [History Confirmed 06/29/19] Metoprolol Succinate 50 mg [Toprol Xl 50 MG] 50 mg PO DAILY 12/08/15 [ History Confirmed 06/29/19] Nitroglycerin 0.4 mg Tablet [Nitrostat 0.4 MG Tablet] 0.4 mg SL Q5MIN PRN MR X 3 PRN 12/08/15 [History Confirmed 06/29/19] Simvastatin 40 mg [Zocor 40 mg] 40 mg PO HS 12/08/15 [History Confirmed 06/29/19 ] Fluticasone Propionate [Flonase NASAL] 16 gm NS BIDPRN PRN 01/21/16 [ History Confirmed 06/29/19] Ergocalciferol (Vitamin D2) [Vitamin D] 50,000 unit PO UD 09/01/17 [History Confirmed 06/29/19] Irbesartan 1 tab PO DAILY 09/01/17 [History Confirmed 06/29/19] predniSONE [Prednisone] 5 mg PO DAILY 09/01/17 [History Confirmed 06/29/19] Famotidine 20 mg [Pepcid 20 MG] 1 tab PO BID 09/02/17 [History Confirmed 06/29/19] Aspirin 325 mg PO DAILY 06/29/19 [History Confirmed 06/29/19] Docusate Sodium 100 mg [Colace 100 MG] 100 mg PO DAILY PRN PRN 06/29/19 [ History Confirmed 06/29/19] Fluticasone/Salmeterol [Advair 100-50 Diskus] 1 each IH DAILY 06/29/19 [History Confirmed 06/29/19] Furosemide [Lasix] 40 mg PO BID 06/29/19 [History Confirmed 06/29/19] Levothyroxine Sodium 25 mg PO DAILY 06/29/19 [History Confirmed 06/29/19] Allergies/Adverse Reactions: Allergies Allergy/AdvReac Type Severity Reaction Status Date / Time venom-honey bee Allergy Intermediate Verified 03/19/17 14:06 [bee venom (honey bee)] colchicine Allergy Mild Hives Verified 03/19/17 14:06 Latex, Natural Rubber Allergy Mild Rash Verified 03/19/17 14:06 Sulfa (Sulfonamide Allergy Mild Hives Verified 03/19/17 14:06 Antibiotics) - Past Medical History Past Medical History: Yes Neurological History: Migraines ENT History: Cataracts Cardiac History: Angina, Congestive Heart Failure, Coronary Artery Disease, High Cholesterol, Hypertension, Peripheral Vascular Disease Respiratory History: Asthma, CHF, COPD, Emphysema, Pneumonia, Other Endocrine Medical History: Hypothyroidism Musculoskelatal History: Degenerative Disk Disease GI Medical History: GERD, Hemorrhoids, Hernia, Polyps History: Other Pyscho-Social History: Anxiety, Depression Reproductive Disorders: No Pertinent History Comment: RESTRICTIVE LUNG DISEASE, OBESITY, SLEEP APNEA, CHRONIC FATIGUE. frequent UTIs - Female History Are you now?: No - Past Surgical History Past Surgical History: Yes Neuro Surgical History: No Pertinent History Cardiac History: Cardiac Catheterization Respiratory Surgery: No Pertinent History GI Surgical History: Appendectomy, Cholecystectomy Genitourinary Surgical Hx: No Pertinent History Musculskeletal Surgical Hx: Orthopedic Surgery Female Surgical History: Hysterectomy Other Surgical History: Bilateral knee surgery. cysts removed from ovaries. - Social History Smoking Status: Former smoker How long have you smoked: 30 years Exposure to second hand smoke: No Alcohol: None Drug Use: none Significant Family History: no pertinent family hx - Physical Exam Vital Signs: Vital Signs - 24 hr Temp Pulse Resp BP Pulse Ox 06/30/19 07:28 97 06/30/19 07:23 98.2 F 95 H 18 112/52 99 06/30/19 04:00 98.2 F 116 H 20 119/58 98 06/30/19 00:36 98.5 F 101 H 17 129/59 94 L 06/29/19 22:41 97.8 F 91 H 19 149/68 96 06/29/19 22:27 102 H 20 96 06/29/19 21:11 82 18 119/76 99 06/29/19 20:08 98 H 18 137/71 97 06/29/19 19:08 94 H 18 140/91 97 06/29/19 17:22 97.9 F 103 H 26 H 115/57 95 Oxygen-Last 24 hours Oxygen Flowrate (L/min)-RT 3 General Appearance: no apparent distress, alert Neurologic Exam: alert, oriented x 3, cooperative, normal mood/affect, nml cerebellar function, nml station & gait, sensation nml, No motor deficits Eye Exam: PERRL/EOMI, eyes nml inspection Ears, Nose, Throat Exam: normal ENT inspection, TMs normal, pharynx normal, moist mucous membranes Neck Exam: normal inspection, non-tender, supple, full range of motion Respiratory Exam: normal breath sounds, lungs clear, No respiratory distress Cardiovascular Exam: regular rate/rhythm, normal heart sounds, normal peripheral pulses Gastrointestinal/Abdomen Exam: soft, normal bowel sounds, No tenderness, No mass Back Exam: normal inspection, normal range of motion, No CVA tenderness, No vertebral tenderness Extremity Exam: normal inspection, normal range of motion, pelvis stable Skin Exam: normal color, warm, dry, No rash Lymphatic Exam: No adenopathy Results - Labs Lab/Micro Results: Lab Results-Last 24 Hours 06/29/19 06/29/19 06/29/19 Range/Units 17:15 18:05 18:05 WBC (4.0-10.5) K/mm3 RBC (4.1-5.4) M/mm3 Hgb (12.0-16.0) gm/dl Hct (35-47) % MCV (78-100) fl MCH (26-32) pg MCHC (32-36) g/dl RDW (11.5-14.0) % Plt Count (150-450) K/mm3 MPV (7.5-11.0) fl Gran % (36.0-66.0) % Eos # (Auto) (0-0.5) Absolute Lymphs (auto) (1.0-4.6) Absolute Monos (auto) (0.0-1.3) Lymphocytes % (24.0-44.0) % Monocytes % (0.0-12.0) % Eosinophils % (0.00-5.0) % Basophils % (0.0-0.4) % Absolute Granulocytes (1.4-6.9) Basophils # (0-0.4) Sodium 139 (137-145) mmol/L Potassium 4.0 (3.5-5.1) mmol/L Chloride 108 H (98-107) mmol/L Carbon Dioxide 17 L (22-30) mmol/L Anion Gap 17.5 H (5-15) MEQ/L BUN 24 H (7-17) mg/dL Creatinine 1.58 H (0.52-1.04) mg/dL Estimated GFR 33.7 ML/MIN Glucose 126 H (74-106) mg/dL Lactic Acid (0.4-2.0) Calcium 9.3 (8.4-10.2) mg/dL Total Bilirubin 0.60 (0.2-1.3) mg/dL Direct Bilirubin 0.3 (0.0-0.4) mg/dL AST 31 (14-36) U/L ALT 19 (0-35) U/L Alkaline Phosphatase 116 (38-126) U/L Troponin I 0.012 (0.000-0.034) ng/mL NT-Pro-B Natriuret Pep 897 (0-1800) pg/mL Serum Total Protein 7.1 (6.3-8.2) g/dL Albumin 3.7 (3.5-5.0) g/dL Lipase 38 (23-300) U/L TSH 3rd Generation (0.47-4.68) mIU/L Urine Color (YELLOW) Urine Appearance (CLEAR) Urine pH (5-6) Ur Specific [place] (1.005-1.025) Urine Protein (Negative) Urine Ketones (NEGATIVE) Urine Blood (0-5) Evaristo/ul Urine Nitrite (NEGATIVE) Urine Bilirubin (NEGATIVE) Urine Urobilinogen (0-1) mg/dL Ur Leukocyte Esterase (NEGATIVE) Urine WBC (Auto) (0-5) /HPF Urine RBC (Auto) (0-2) /HPF U Hyaline Cast (Auto) (0-2) /LPF U Epithel Cells (Auto) (FEW) /HPF Urine Bacteria (Auto) (NEGATIVE) /HPF Unidentified Crystals (NEGATIVE) /HPF Other Casts (Auto) (NEGATIVE) /LPF Urine Mucus (Auto) (NEGATIVE) /HPF Urine Culture Reflexed (NO) Urine Glucose (NEGATIVE) mg/dL Salicylates < 1.0 L (2-20) mg/dL C. difficile Screen (NEGATIVE) C.difficile 027-NAP1-B1 (NEGATIVE) 06/29/19 06/29/19 06/30/19 Range/Units 18:05 18:05 00:35 WBC 8.3 (4.0-10.5) K/mm3 RBC 3.48 L (4.1-5.4) M/mm3 Hgb 10.0 L (12.0-16.0) gm/dl Hct 32.9 L (35-47) % MCV 94.5 (78-100) fl MCH 28.7 (26-32) pg MCHC 30.4 L (32-36) g/dl RDW 18.0 H (11.5-14.0) % Plt Count 309 (150-450) K/mm3 MPV 12.0 H (7.5-11.0) fl Gran % 51.1 (36.0-66.0) % Eos # (Auto) 1.10 H (0-0.5) Absolute Lymphs (auto) 1.75 (1.0-4.6) Absolute Monos (auto) 0.68 (0.0-1.3) Lymphocytes % 21.1 L (24.0-44.0) % Monocytes % 8.2 (0.0-12.0) % Eosinophils % 13.3 H (0.00-5.0) % Basophils % 6.3 (0.0-0.4) % Absolute Granulocytes 4.24 (1.4-6.9) Basophils # 0.52 H (0-0.4) Sodium (137-145) mmol/L Potassium (3.5-5.1) mmol/L Chloride (98-107) mmol/L Carbon Dioxide (22-30) mmol/L Anion Gap (5-15) MEQ/L BUN (7-17) mg/dL Creatinine (0.52-1.04) mg/dL Estimated GFR ML/MIN Glucose (74-106) mg/dL Lactic Acid 0.9 (0.4-2.0) Calcium (8.4-10.2) mg/dL Total Bilirubin (0.2-1.3) mg/dL Direct Bilirubin (0.0-0.4) mg/dL AST (14-36) U/L ALT (0-35) U/L Alkaline Phosphatase (38-126) U/L Troponin I (0.000-0.034) ng/mL NT-Pro-B Natriuret Pep (0-1800) pg/mL Serum Total Protein (6.3-8.2) g/dL Albumin (3.5-5.0) g/dL Lipase (23-300) U/L TSH 3rd Generation 4.990 H (0.47-4.68) mIU/L Urine Color (YELLOW) Urine Appearance (CLEAR) Urine pH (5-6) Ur Specific [place] (1.005-1.025) Urine Protein (Negative) Urine Ketones (NEGATIVE) Urine Blood (0-5) Evaristo/ul Urine Nitrite (NEGATIVE) Urine Bilirubin (NEGATIVE) Urine Urobilinogen (0-1) mg/dL Ur Leukocyte Esterase (NEGATIVE) Urine WBC (Auto) (0-5) /HPF Urine RBC (Auto) (0-2) /HPF U Hyaline Cast (Auto) (0-2) /LPF U Epithel Cells (Auto) (FEW) /HPF Urine Bacteria (Auto) (NEGATIVE) /HPF Unidentified Crystals (NEGATIVE) /HPF Other Casts (Auto) (NEGATIVE) /LPF Urine Mucus (Auto) (NEGATIVE) /HPF Urine Culture Reflexed (NO) Urine Glucose (NEGATIVE) mg/dL Salicylates (2-20) mg/dL C. difficile Screen (NEGATIVE) C.difficile 027-NAP1-B1 (NEGATIVE) 06/30/19 06/30/19 06/30/19 Range/Units 04:32 04:32 09:37 WBC 8.0 (4.0-10.5) K/mm3 RBC 3.29 L (4.1-5.4) M/mm3 Hgb 9.4 L (12.0-16.0) gm/dl Hct 31.2 L (35-47) % MCV 94.8 (78-100) fl MCH 28.6 (26-32) pg MCHC 30.1 L (32-36) g/dl RDW 17.8 H (11.5-14.0) % Plt Count 301 (150-450) K/mm3 MPV 11.7 H (7.5-11.0) fl Gran % 48.3 (36.0-66.0) % Eos # (Auto) 0.95 H (0-0.5) Absolute Lymphs (auto) 1.88 (1.0-4.6) Absolute Monos (auto) 0.82 (0.0-1.3) Lymphocytes % 23.6 L (24.0-44.0) % Monocytes % 10.3 (0.0-12.0) % Eosinophils % 11.9 H (0.00-5.0) % Basophils % 5.9 (0.0-0.4) % Absolute Granulocytes 3.85 (1.4-6.9) Basophils # 0.47 H (0-0.4) Sodium 135 L (137-145) mmol/L Potassium 4.3 (3.5-5.1) mmol/L Chloride 108 H (98-107) mmol/L Carbon Dioxide 19 L (22-30) mmol/L Anion Gap 12.3 (5-15) MEQ/L BUN 24 H (7-17) mg/dL Creatinine 1.70 H (0.52-1.04) mg/dL Estimated GFR 31.0 ML/MIN Glucose 120 H (74-106) mg/dL Lactic Acid (0.4-2.0) Calcium 8.8 (8.4-10.2) mg/dL Total Bilirubin (0.2-1.3) mg/dL Direct Bilirubin (0.0-0.4) mg/dL AST (14-36) U/L ALT (0-35) U/L Alkaline Phosphatase (38-126) U/L Troponin I (0.000-0.034) ng/mL NT-Pro-B Natriuret Pep (0-1800) pg/mL Serum Total Protein (6.3-8.2) g/dL Albumin (3.5-5.0) g/dL Lipase (23-300) U/L TSH 3rd Generation (0.47-4.68) mIU/L Urine Color YELLOW (YELLOW) Urine Appearance HAZY (CLEAR) Urine pH 5.0 (5-6) Ur Specific [place] 1.008 (1.005-1.025) Urine Protein NEGATIVE (Negative) Urine Ketones NEGATIVE (NEGATIVE) Urine Blood LARGE (0-5) Evaristo/ul Urine Nitrite NEGATIVE (NEGATIVE) Urine Bilirubin NEGATIVE (NEGATIVE) Urine Urobilinogen NEGATIVE (0-1) mg/dL Ur Leukocyte Esterase LARGE (NEGATIVE) Urine WBC (Auto) 3-5 (0-5) /HPF Urine RBC (Auto) 11-15 (0-2) /HPF U Hyaline Cast (Auto) 26-50 (0-2) /LPF U Epithel Cells (Auto) RARE (FEW) /HPF Urine Bacteria (Auto) FEW (NEGATIVE) /HPF Unidentified Crystals 2-5 (NEGATIVE) /HPF Other Casts (Auto) 5-10 (NEGATIVE) /LPF Urine Mucus (Auto) SLIGHT (NEGATIVE) /HPF Urine Culture Reflexed YES (NO) Urine Glucose NEGATIVE (NEGATIVE) mg/dL Salicylates (2-20) mg/dL C. difficile Screen (NEGATIVE) C.difficile 027-NAP1-B1 (NEGATIVE) 06/30/19 Range/Units 10:28 WBC (4.0-10.5) K/mm3 RBC (4.1-5.4) M/mm3 Hgb (12.0-16.0) gm/dl Hct (35-47) % MCV (78-100) fl MCH (26-32) pg MCHC (32-36) g/dl RDW (11.5-14.0) % Plt Count (150-450) K/mm3 MPV (7.5-11.0) fl Gran % (36.0-66.0) % Eos # (Auto) (0-0.5) Absolute Lymphs (auto) (1.0-4.6) Absolute Monos (auto) (0.0-1.3) Lymphocytes % (24.0-44.0) % Monocytes % (0.0-12.0) % Eosinophils % (0.00-5.0) % Basophils % (0.0-0.4) % Absolute Granulocytes (1.4-6.9) Basophils # (0-0.4) Sodium (137-145) mmol/L Potassium (3.5-5.1) mmol/L Chloride (98-107) mmol/L Carbon Dioxide (22-30) mmol/L Anion Gap (5-15) MEQ/L BUN (7-17) mg/dL Creatinine (0.52-1.04) mg/dL Estimated GFR ML/MIN Glucose (74-106) mg/dL Lactic Acid (0.4-2.0) Calcium (8.4-10.2) mg/dL Total Bilirubin (0.2-1.3) mg/dL Direct Bilirubin (0.0-0.4) mg/dL AST (14-36) U/L ALT (0-35) U/L Alkaline Phosphatase (38-126) U/L Troponin I (0.000-0.034) ng/mL NT-Pro-B Natriuret Pep (0-1800) pg/mL Serum Total Protein (6.3-8.2) g/dL Albumin (3.5-5.0) g/dL Lipase (23-300) U/L TSH 3rd Generation (0.47-4.68) mIU/L Urine Color (YELLOW) Urine Appearance (CLEAR) Urine pH (5-6) Ur Specific [place] (1.005-1.025) Urine Protein (Negative) Urine Ketones (NEGATIVE) Urine Blood (0-5) Evaristo/ul Urine Nitrite (NEGATIVE) Urine Bilirubin (NEGATIVE) Urine Urobilinogen (0-1) mg/dL Ur Leukocyte Esterase (NEGATIVE) Urine WBC (Auto) (0-5) /HPF Urine RBC (Auto) (0-2) /HPF U Hyaline Cast (Auto) (0-2) /LPF U Epithel Cells (Auto) (FEW) /HPF Urine Bacteria (Auto) (NEGATIVE) /HPF Unidentified Crystals (NEGATIVE) /HPF Other Casts (Auto) (NEGATIVE) /LPF Urine Mucus (Auto) (NEGATIVE) /HPF Urine Culture Reflexed (NO) Urine Glucose (NEGATIVE) mg/dL Salicylates (2-20) mg/dL C. difficile Screen NEGATIVE (NEGATIVE) C.difficile 027-NAP1-B1 PRESUMPTIVE NEGATIVE (NEGATIVE) - Radiology Impressions Radiology Exams & Impressions: Radiology Procedures Category Date Time Status CHEST 2 VIEWS (PA AND LAT) Stat Exams 06/29/19 18:00 Completed - Other Procedures and Tests Respiratory Therapy 06/29/19 21:57 Oxygen Nasal Cannula 2 lpm 06/29/19 22:11 Respiratory Therapy Assessment DAILY 06/29/19 22:37 Peak Expiratory Flow Rate ONCE Assessment/Plan (1) [id number] kidney injury Current Visit: Yes Status: Acute Qualifiers: Acute renal failure type: with acute renal cortical necrosis Chronic kidney disease stage: stage 3 (moderate) Qualified Code(s): N17.1 - Acute kidney failure with acute cortical necrosis; N18.3 - Chronic kidney disease, stage 3 (moderate) Code(s): N17.9 - ACUTE KIDNEY FAILURE, UNSPECIFIED; N18.9 - CHRONIC KIDNEY DISEASE, UNSPECIFIED (2) Chronic acquired lymphedema Current Visit: Yes Status: Acute Code(s): I89.0 - LYMPHEDEMA, NOT ELSEWHERE CLASSIFIED (3) Diarrhea Current Visit: Yes Status: Acute Onset Date: ~09/01/17 Qualifiers: Diarrhea type: unspecified type Qualified Code(s): R19.7 - Diarrhea, unspecified Code(s): R19.7 - DIARRHEA, UNSPECIFIED (4) Increased anion gap metabolic acidosis Current Visit: Yes Status: Acute Code(s): E87.2 - ACIDOSIS
[2019-06-30] MEDS ORDERED: IMODIUM 2 MG PO PRN (13:52)
[2019-07-01] MEDS ORDERED: SYNTHROID 25 MCG PO SCH (07:00)
[2019-07-05] MEDS ORDERED: VITAMIN D2 PO SCH (10:00)
== END 2019-06-30 15:50 | disposition home or self-care (01) ==
LOC: ED 17:07 → MED SURG 21:50
PROVIDERS: ADMIT General Practice; ATTEND General Practice
DX: N17.9 Acute kidney failure, unspecified (principal); E87.2 Acidosis; N18.9 Chronic kidney disease, unspecified; I89.0 Lymphedema, not elsewhere classified; E86.0 Dehydration; D64.9 Anemia, unspecified; I50.9 Heart failure, unspecified; J44.9 Chronic obstructive pulmonary disease, unspecified; I12.9 Hypertensive chronic kidney disease with stage 1 through stage 4 chronic kidney disease, or unspecified chronic kidney disease; M10.9 Gout, unspecified; Z99.81 Dependence on supplemental oxygen; Z79.899 Other long term (current) drug therapy; I25.10 Atherosclerotic heart disease of native coronary artery without angina pectoris; E78.00 Pure hypercholesterolemia, unspecified; I73.9 Peripheral vascular disease, unspecified; K21.9 Gastro-esophageal reflux disease without esophagitis; F41.9 Anxiety disorder, unspecified; F32.9 Major depressive disorder, single episode, unspecified; G47.30 Sleep apnea, unspecified; E03.9 Hypothyroidism, unspecified
CPT/HCPCS: 36000; 36415; 71046; 80048; 80076; 80307; 81001; 83605; 83690; 83880; 84443; 84484; 85025; 87077; 87086; 87186; 87493; 93005; 94150; 94640; 94760; 96374; 97162; 99284; G0378; J2405; J7609; A9270-GY

== ENCOUNTER 2020-01-28 17:28 | Emergency (ER) | payer MEDICARE ==
--- NOTE | 2020-01-28 17:30 | ERPHSYRPT ---
- History of Present Illness Time Seen by Provider: 01/28/20 17:30 Source: patient Exam Limitations: no limitations Physician History: This is a 79-year-old obese white female has a history of congestive heart failure, COPD, renal insufficiency chronic anemia. She is also hypothyroid. Today, patient had 2 episodes of nosebleeds. She denies trauma to her nose. She states she is not on any blood thinning medicine. Dr. Earl is her tower foreman. Patient states that she has no known coronary artery disease and has never had a myocardial infarction. Patient was feeling a little dizzy earlier today. And was concerned that maybe she might have had a stroke. The last time she had a nosebleed today was at 1 PM. She presents with no further nosebleeds. Timing/Duration: intermittent, this morning Severity: mild ENT Location: nose Prearrival Treatment: no prearrival treatment Associated Symptoms: dizziness Allergies/Adverse Reactions: venom-honey bee [bee venom (honey bee)] Allergy (Intermediate, Verified 01/28/20 17:43) colchicine Allergy (Mild, Verified 01/28/20 17:43) Hives Latex, Natural Rubber Allergy (Mild, Verified 01/28/20 17:43) Rash Sulfa (Sulfonamide Antibiotics) Allergy (Mild, Verified 01/28/20 17:43) Hives Home Medications: Allopurinol 300 mg [Zyloprim 300 mg] 300 mg PO HS 12/08/15 [History] Metoprolol Succinate 50 mg [Toprol Xl 50 MG] 50 mg PO DAILY 12/08/15 [History] Nitroglycerin 0.4 mg Tablet [Nitrostat 0.4 MG Tablet] 0.4 mg SL Q5MIN PRN MR X 3 PRN 12/08/15 [History] Simvastatin 40 mg [Zocor 40 mg] 40 mg PO HS 12/08/15 [History] Fluticasone Propionate [Flonase NASAL] 16 gm NS BIDPRN PRN 01/21/16 [History] Ergocalciferol (Vitamin D2) [Vitamin D] 50,000 unit PO UD 09/01/17 [History] Irbesartan 1 tab PO DAILY 09/01/17 [History] predniSONE [Prednisone] 5 mg PO DAILY 09/01/17 [History] Famotidine 20 mg [Pepcid 20 MG] 1 tab PO BID 09/02/17 [History] Aspirin 325 mg PO DAILY 06/29/19 [History] Docusate Sodium 100 mg [Colace 100 MG] 100 mg PO DAILY PRN PRN 06/29/19 [History] Fluticasone/Salmeterol [Advair 100-50 Diskus] 1 each IH DAILY 06/29/19 [History] Furosemide [Lasix] 40 mg PO BID 06/29/19 [History] Levothyroxine Sodium 25 mg PO DAILY 06/29/19 [History] Hx Tetanus, Diphtheria Vaccination/Date Given: Yes Hx Influenza Vaccination/Date Given: Yes Hx Pneumococcal Vaccination/Date Given: Yes Travel Risk - International Travel Have you traveled outside of the country in past 3 weeks: No - Coronavirus Screening Are you exhibiting any of the following symptoms?: No Close contact with a COVID-19 positive Pt in past 14-21 Days: No - Review of Systems Constitutional: No Symptoms Eyes: No Symptoms Ears, Nose, & Throat: Epistaxis (Earlier today x2 episodes. None currently) Respiratory: No Symptoms Cardiac: No Symptoms Abdominal/Gastrointestinal: No Symptoms Genitourinary Symptoms: No Symptoms Musculoskeletal: No Symptoms Skin: No Symptoms Neurological: No Symptoms Psychological: No Symptoms Endocrine: No Symptoms Hematologic/Lymphatic: No Symptoms Immunological/Allergic: No Symptoms All Other Systems: Reviewed and Negative - Past Medical History Pertinent Past Medical History: Yes Neurological History: Migraines ENT History: Cataracts Cardiac History: Angina, Congestive Heart Failure, Coronary Artery Disease, High Cholesterol, Hypertension, Peripheral Vascular Disease Respiratory History: Asthma, CHF, COPD, Emphysema, Pneumonia, Other Endocrine Medical History: Hypothyroidism Musculoskeletal History: Degenerative Disk Disease GI Medical History: GERD, Hemorrhoids, Hernia, Polyps History: Other Psycho-Social History: Anxiety, Depression Female Reproductive Disorders: No Pertinent History Other Medical History: RESTRICTIVE LUNG DISEASE, OBESITY, SLEEP APNEA, CHRONIC FATIGUE. frequent UTIs - Past Surgical History Past Surgical History: Yes Neuro Surgical History: No Pertinent History Cardiac: Cardiac Catheterization Respiratory: No Pertinent History Gastrointestinal: Appendectomy, Cholecystectomy Genitourinary: No Pertinent History Musculoskeletal: Orthopedic Surgery Female Surgical History: Hysterectomy Other Surgical History: Bilateral knee surgery. cysts removed from ovaries. - Social History Smoking Status: Former smoker How long have you smoked: 30 years Exposure to second hand smoke: No Drug Use: none Patient Lives Alone: No Significant Family History: no pertinent family hx - Nursing Vital Signs Nursing Vital Signs: Initial Vital Signs Temperature 98.0 F 01/28/20 17:32 Pulse Rate 109 H 01/28/20 17:32 Respiratory Rate 18 01/28/20 17:32 Blood Pressure 105/62 01/28/20 17:32 O2 Sat by Pulse Oximetry 98 01/28/20 17:32 Pain Scale Pain Intensity 0 - Physical Exam General Appearance: no apparent distress, alert, anxiety, obese Eye Exam: bilateral eye: normal inspection, PERRL, EOMI Ear Exam: bilateral ear: auricle normal, canal normal, TM normal Nasal Exam: normal inspection Throat Exam: normal, pharynx normal, moist mucus membranes Neck Exam: normal inspection, non-tender, supple, full range of motion, trachea midline Cardiovascular/Respiratory Exam: chest non-tender, normal breath sounds, regular rate/rhythm, heart sounds normal Abdominal Exam: non-tender Neurologic Exam: alert, oriented x 3, cooperative, 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 nml as tested, normal mood/affect, nml cerebellar function, nml station & gait, sensation nml Skin Exam: normal color, warm, dry SpO2 Interpretation: normal O2 Delivery: Room Air - Course Nursing assessment & vital signs reviewed: Yes EKG Interpreted by Me: RATE (100), A-fib, NORMAL AXIS, Other (There is new onset atrial fibrillation when compared to an EKG dated 06/29/2019) Ordered Tests: Active Orders 24 hr Category Date Time Status EKG-ER Only STAT Care 01/28/20 17:53 Active IV Insertion STAT Care 01/28/20 17:53 Active HEAD WITHOUT CONTRAST [CT] Stat Exams 01/28/20 17:53 Taken BNP [NT PRO BNP] Stat Lab 01/28/20 18:10 Completed CBC W DIFF Stat Lab 01/28/20 18:10 Completed CMP Stat Lab 01/28/20 18:10 Completed CULTURE,URINE Stat Lab 01/28/20 18:10 Received T4 (Thyroxine) Stat Lab 01/28/20 18:10 Completed TROPONIN Q3H Lab 01/28/20 18:10 Completed TROPONIN Q3H Lab 01/28/20 21:00 Ordered TROPONIN Q3H Lab 01/29/20 00:00 Ordered TROPONIN Q3H Lab 01/29/20 03:00 Ordered TROPONIN Q3H Lab 01/29/20 06:00 Ordered TSH [TSH, 3RD Generation] Stat Lab 01/28/20 18:10 Completed UA W/RFX UR CULTURE Stat Lab 01/28/20 18:10 Completed Medication Summary Generic Name Dose Route Start Last Admin Trade Name Nachoq PRN Reason Stop Dose Admin Ceftriaxone Sodium/Dextrose 1 g in 50 mls @ 100 mls/hr 01/28/20 19:23 01/28/20 19:30 Rocephin 1 Gm-D5w 50 Ml Bag IV 01/28/20 19:52 100 mls/hr STAT STA 100 mls/hr Administration Discontinued Medications Generic Name Dose Route Start Last Admin Trade Name Freq PRN Reason Stop Dose Admin Sodium Chloride 500 mls @ 500 mls/hr 01/28/20 17:54 01/28/20 18:57 Sodium Chloride 0.9% 500 Ml IV 01/28/20 18:53 500 mls/hr .Q1H ONE Administration Sodium Chloride Confirm 01/28/20 18:55 Sodium Chloride 0.9% 500 Ml Administered 01/28/20 18:56 Dose 500 mls @ ud IV .STK-MED ONE Ceftriaxone Sodium/Dextrose Confirm 01/28/20 19:25 Rocephin 1 Gm-D5w 50 Ml Bag Administered 01/28/20 19:26 Dose 1 g in 50 mls @ ud IV .STK-MED ONE Lorazepam 0.5 mg 01/28/20 17:54 01/28/20 18:58 Ativan 2 Mg/1 Ml Vial IV 01/28/20 17:55 Not Given STAT ONE Lorazepam Confirm 01/28/20 18:55 Ativan 2 Mg/1 Ml Vial Administered 01/28/20 18:56 Dose 2 mg .ROUTE .STK-MED ONE Lab/Rad Data: Laboratory Result Diagrams 01/28/20 18:10 01/28/20 18:10 Laboratory Results 01/28/20 01/28/20 01/28/20 Range/Units 18:10 18:10 18:10 WBC (4.0-10.5) K/mm3 RBC (4.1-5.4) M/mm3 Hgb (12.0-16.0) gm/dl Hct (35-47) % MCV (78-100) fl MCH (26-32) pg MCHC (32-36) g/dl RDW (11.5-14.0) % Plt Count (150-450) K/mm3 MPV (7.5-11.0) fl Gran % (36.0-66.0) % Eos # (Auto) (0-0.5) Absolute Lymphs (auto) (1.0-4.6) Absolute Monos (auto) (0.0-1.3) Lymphocytes % (24.0-44.0) % Monocytes % (0.0-12.0) % Eosinophils % (0.00-5.0) % Basophils % (0.0-0.4) % Absolute Granulocytes (1.4-6.9) Basophils # (0-0.4) Sodium (137-145) mmol/L Potassium (3.5-5.1) mmol/L Chloride (98-107) mmol/L Carbon Dioxide (22-30) mmol/L Anion Gap (5-15) MEQ/L BUN (7-17) mg/dL Creatinine (0.52-1.04) mg/dL Estimated GFR ML/MIN Glucose (74-106) mg/dL Calcium (8.4-10.2) mg/dL Total Bilirubin (0.2-1.3) mg/dL AST (14-36) U/L ALT (0-35) U/L Alkaline Phosphatase (38-126) U/L Troponin I (0.000-0.034) ng/mL NT-Pro-B Natriuret Pep 547 (0-1800) pg/mL Serum Total Protein (6.3-8.2) g/dL Albumin (3.5-5.0) g/dL Thyroxine (T4) 8.55 (5.53-10.96) ug/dL TSH 3rd Generation 4.220 (0.47-4.68) mIU/L Urine Color (YELLOW) Urine Appearance (CLEAR) Urine pH (5-6) Ur Specific [place] (1.005-1.025) Urine Protein (Negative) Urine Ketones (NEGATIVE) Urine Blood (0-5) Evaristo/ul Urine Nitrite (NEGATIVE) Urine Bilirubin (NEGATIVE) Urine Urobilinogen (0-1) mg/dL Ur Leukocyte Esterase (NEGATIVE) Urine WBC (Auto) (0-5) /HPF Urine RBC (Auto) (0-2) /HPF U Hyaline Cast (Auto) (0-2) /LPF U Epithel Cells (Auto) (FEW) /HPF Urine Bacteria (Auto) (NEGATIVE) /HPF Urine Mucus (Auto) (NEGATIVE) /HPF Urine Culture Reflexed (NO) Urine Glucose (NEGATIVE) mg/dL 01/28/20 01/28/20 01/28/20 Range/Units 18:10 18:10 18:10 WBC (4.0-10.5) K/mm3 RBC (4.1-5.4) M/mm3 Hgb (12.0-16.0) gm/dl Hct (35-47) % MCV (78-100) fl MCH (26-32) pg MCHC (32-36) g/dl RDW (11.5-14.0) % Plt Count (150-450) K/mm3 MPV (7.5-11.0) fl Gran % (36.0-66.0) % Eos # (Auto) (0-0.5) Absolute Lymphs (auto) (1.0-4.6) Absolute Monos (auto) (0.0-1.3) Lymphocytes % (24.0-44.0) % Monocytes % (0.0-12.0) % Eosinophils % (0.00-5.0) % Basophils % (0.0-0.4) % Absolute Granulocytes (1.4-6.9) Basophils # (0-0.4) Sodium 138 (137-145) mmol/L Potassium 4.9 (3.5-5.1) mmol/L Chloride 107 (98-107) mmol/L Carbon Dioxide 25 (22-30) mmol/L Anion Gap 10.8 (5-15) MEQ/L BUN 39 H (7-17) mg/dL Creatinine 1.20 H (0.52-1.04) mg/dL Estimated GFR 46.3 ML/MIN Glucose 116 H (74-106) mg/dL Calcium 9.3 (8.4-10.2) mg/dL Total Bilirubin 0.40 (0.2-1.3) mg/dL AST 20 (14-36) U/L ALT 12 (0-35) U/L Alkaline Phosphatase 94 (38-126) U/L Troponin I < 0.012 (0.000-0.034) ng/mL NT-Pro-B Natriuret Pep (0-1800) pg/mL Serum Total Protein 7.3 (6.3-8.2) g/dL Albumin 3.9 (3.5-5.0) g/dL Thyroxine (T4) (5.53-10.96) ug/dL TSH 3rd Generation (0.47-4.68) mIU/L Urine Color YELLOW (YELLOW) Urine Appearance CLOUDY (CLEAR) Urine pH 5.0 (5-6) Ur Specific [place] 1.011 (1.005-1.025) Urine Protein NEGATIVE (Negative) Urine Ketones NEGATIVE (NEGATIVE) Urine Blood SMALL (0-5) Evaristo/ul Urine Nitrite NEGATIVE (NEGATIVE) Urine Bilirubin NEGATIVE (NEGATIVE) Urine Urobilinogen NEGATIVE (0-1) mg/dL Ur Leukocyte Esterase LARGE (NEGATIVE) Urine WBC (Auto) >100 (0-5) /HPF Urine RBC (Auto) 0-2 (0-2) /HPF U Hyaline Cast (Auto) 0-2 (0-2) /LPF U Epithel Cells (Auto) RARE (FEW) /HPF Urine Bacteria (Auto) MANY (NEGATIVE) /HPF Urine Mucus (Auto) SLIGHT (NEGATIVE) /HPF Urine Culture Reflexed YES (NO) Urine Glucose NEGATIVE (NEGATIVE) mg/dL 01/28/20 Range/Units 18:10 WBC 8.2 (4.0-10.5) K/mm3 RBC 3.64 L (4.1-5.4) M/mm3 Hgb 10.1 L (12.0-16.0) gm/dl Hct 34.5 L (35-47) % MCV 94.8 (78-100) fl MCH 27.7 (26-32) pg MCHC 29.3 L (32-36) g/dl RDW 17.9 H (11.5-14.0) % Plt Count 267 (150-450) K/mm3 MPV 12.7 H (7.5-11.0) fl Gran % 56.7 (36.0-66.0) % Eos # (Auto) 0.28 (0-0.5) Absolute Lymphs (auto) 1.28 (1.0-4.6) Absolute Monos (auto) 0.66 (0.0-1.3) Lymphocytes % 15.7 L (24.0-44.0) % Monocytes % 8.1 (0.0-12.0) % Eosinophils % 3.4 (0.00-5.0) % Basophils % 16.1 (0.0-0.4) % Absolute Granulocytes 4.62 (1.4-6.9) Basophils # 1.31 H (0-0.4) Sodium (137-145) mmol/L Potassium (3.5-5.1) mmol/L Chloride (98-107) mmol/L Carbon Dioxide (22-30) mmol/L Anion Gap (5-15) MEQ/L BUN (7-17) mg/dL Creatinine (0.52-1.04) mg/dL Estimated GFR ML/MIN Glucose (74-106) mg/dL Calcium (8.4-10.2) mg/dL Total Bilirubin (0.2-1.3) mg/dL AST (14-36) U/L ALT (0-35) U/L Alkaline Phosphatase (38-126) U/L Troponin I (0.000-0.034) ng/mL NT-Pro-B Natriuret Pep (0-1800) pg/mL Serum Total Protein (6.3-8.2) g/dL Albumin (3.5-5.0) g/dL Thyroxine (T4) (5.53-10.96) ug/dL TSH 3rd Generation (0.47-4.68) mIU/L Urine Color (YELLOW) Urine Appearance (CLEAR) Urine pH (5-6) Ur Specific [place] (1.005-1.025) Urine Protein (Negative) Urine Ketones (NEGATIVE) Urine Blood (0-5) Evaristo/ul Urine Nitrite (NEGATIVE) Urine Bilirubin (NEGATIVE) Urine Urobilinogen (0-1) mg/dL Ur Leukocyte Esterase (NEGATIVE) Urine WBC (Auto) (0-5) /HPF Urine RBC (Auto) (0-2) /HPF U Hyaline Cast (Auto) (0-2) /LPF U Epithel Cells (Auto) (FEW) /HPF Urine Bacteria (Auto) (NEGATIVE) /HPF Urine Mucus (Auto) (NEGATIVE) /HPF Urine Culture Reflexed (NO) Urine Glucose (NEGATIVE) mg/dL - Progress Progress: improved, re-examined Progress Note: 01/28/20 19:34 CAT scan of the head reveals no acute intracranial abnormality Medical screening exam: This patient came in with some mild dizziness. She had 2 episodes of nosebleeds earlier today but they stopped. Patient also was found to have rate controlled atrial fibrillation. This was new. She is maintaining her systolic blood pressure above 100. She has no chest pain. I spoke with Dr. Jake Platt. He is a tower foreman covering for the patient's tower foreman. Patient is to be placed on Eliquis 5 mg orally twice daily. She will be treated as an outpatient. She is to call her tower foreman office at [phone] on 01/31/2020. I told this to the patient and she states that she has a telemedicine appointment at 11:00 on Friday. I explained to her that it is important that she discuss with them that she was seen here and placed on blood thinning medication. Discussed with Dr.: Other (Dr. Platt, tower foreman covering for Dr. Earl) Counseled pt/family regarding: lab results, diagnosis, need for follow-up, rad results - Departure Departure Disposition: Home Clinical Impression: Urinary tract infection, New onset atrial fibrillation Condition: Stable Critical Care Time: No Referrals: KENAN BIRMINGHAM MD [Primary Care Provider] - Additional Instructions: Continue your medication as prescribed. 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 Take this medication as prescribed as well. Call Dr. Wilkes's office on Friday morning, 01/31/2020. Make them aware that you were seen in the emergency department today and diagnosed with urinary tract infection and atrial fibrillation that is rate controlled. Tell them that we reviewed your case with Dr. Platt and was told to follow-up with them on 01/31/2020. In addition, tell them that you were placed on a blood thinning medication. Prescriptions: Ciprofloxacin [Cipro 500 MG] 500 mg PO BID #14 tablet Apixaban [Eliquis] 5 mg PO BID #14 tablet
[2020-01-28] MEDS ORDERED: Sodium Chloride 0.9% 500 ML 500 ML IV ONE ×2 (17:54→18:55)
[2020-01-28] MEDS ORDERED: Ativan 2 MG/1 ML VIAL IV ONE (17:54)
[2020-01-28 18:21] LABS: Absolute Neutrophil Ct (ANC) 4.62 (1.4-6.9); BASOPHIL % 16.1 % (0.0-0.4); Basophil (Absolute #) 1.31 (0-0.4); Eosinophil % 3.4 % (0.00-5.0); Eosinophil (Absolute #) 0.28 (0-0.5); Hematocrit 34.5 % (35-47); Hemoglobin 10.1 gm/dl (12.0-16.0); Lymphocyte (Absolute #) 1.28 (1.0-4.6); Lymphocytes % 15.7 % (24.0-44.0); Mean Cell Volume 94.8 fl (78-100); Mean Corpuscular Hemoglobin 27.7 pg (26-32); Mean Corpuscular Hgb Concent. 29.3 g/dl (32-36); Mean Platelet Volume 12.7 fl (7.5-11.0); Monocyte (Absolute #) 0.66 (0.0-1.3); Monocytes % 8.1 % (0.0-12.0); Neutrophil % 56.7 % (36.0-66.0); Platelet Count 267 K/mm3 (150-450); Red Blood Count 3.64 M/mm3 (4.1-5.4); Red Cell Distribution Width 17.9 % (11.5-14.0); White Blood Count 8.2 K/mm3 (4.0-10.5)
[2020-01-28 18:31] LABS: Appearance CLOUDY (CLEAR); Bacteria MANY /HPF (NEGATIVE); Bilirubin NEGATIVE (NEGATIVE); Blood SMALL Ery/ul (0-5); Epithelial Cells RARE /HPF (FEW); Glucose NEGATIVE (NEGATIVE); Hyaline Casts 0-2 /LPF (0-2); Ketones NEGATIVE (NEGATIVE); Leukocyte Esterase LARGE (NEGATIVE); Mucus SLIGHT /HPF (NEGATIVE); Nitrite NEGATIVE (NEGATIVE); Protein,Urine Dip NEGATIVE (Negative); RBC 0-2 /HPF (0-2); Specific Gravity 1.011 (1.005-1.025); Urobilinogen NEGATIVE mg/dL (0-1); WBC >100 /HPF (0-5)
[2020-01-28 18:37] LABS: ALBUMIN 3.9 g/dL (3.5-5.0); ANION GAP 10.8 MEQ/L (5-15); BILIRUBIN,TOTAL 0.4 mg/dL (0.2-1.3); Calcium 9.3 mg/dL (8.4-10.2); Creatinine 1 1.2 mg/dL (0.52-1.04); EST GLOMERULAR FILTRATION RATE 46.3 ML/MIN; Potassium 4.9 mmol/L (3.5-5.1); Total Protein 7.3 g/dL (6.3-8.2)
[2020-01-28] MEDS ORDERED: Ativan 2 MG/1 ML VIAL ONE (18:55)
[2020-01-28] MEDS ORDERED: ROCEPHIN 1 Gm-D5w 50 ml Bag** 1 G/50 ML IVPB IV STA (19:23)
[2020-01-28] MEDS ORDERED: ROCEPHIN 1 Gm-D5w 50 ml Bag** 1 G/50 ML IVPB IV ONE (19:25)
[2020-01-28] MEDS ORDERED: ELIQUIS 2.5 MG TABLET PO ONE (19:44)
[2020-01-28] MEDS ORDERED: ELIQUIS 2.5 MG TABLET ONE (19:46)
[2020-01-28 19:50] LABS: Slide Review 1 YES
[2020-01-28 20:28] VITALS: BP 132/79; PULSE 106; O2SAT 99
--- NOTE | 2020-01-28 22:18 | XRAY ---
Indication: Dizziness and lightheadedness. Epistaxis. Multiple contiguous axial images obtained through the head without contrast. Comparison: January 20, 2016. Age-appropriate global atrophy. No acute intracranial hemorrhage, abnormal extra-axial fluid collection, or mass effect. Fourth ventricle is midline without hydrocephalus. Rock-white matter differentiation preserved. Bony calvarium intact. Visualized paranasal sinuses and mastoid air cells are clear. Impression: Continued negative CT head without contrast exam. Comment: Preliminary interpretation was made by [facility]. No critical discrepancy.
== END 2020-01-28 20:11 | disposition home or self-care (01) ==
LOC: ED 17:28
DX: N39.0 Urinary tract infection, site not specified (principal); I48.91 Unspecified atrial fibrillation; R04.0 Epistaxis; I50.9 Heart failure, unspecified; R42 Dizziness and giddiness; N28.9 Disorder of kidney and ureter, unspecified; D64.9 Anemia, unspecified; Z79.899 Other long term (current) drug therapy; E78.00 Pure hypercholesterolemia, unspecified; I73.9 Peripheral vascular disease, unspecified; E03.9 Hypothyroidism, unspecified; I25.10 Atherosclerotic heart disease of native coronary artery without angina pectoris
CPT/HCPCS: 36000; 36415; 70450; 80053; 81001; 83880; 84436; 84443; 84484; 85025; 87077; 87086; 87186; 93005; 96360; 96365; 99284; J0696; J2060; A9270-GY

== ENCOUNTER 2020-02-26 13:51 | Emergency (ER) | payer MEDICARE ==
[2020-02-26] MEDS ORDERED: Sodium Chloride 0.9% 1000 ML 1,000 ML IV STA (14:30)
[2020-02-26] MEDS ORDERED: BENADRYL 50 MG/ML IV ONE (14:30)
[2020-02-26] MEDS ORDERED: TYLENOL 325 MG PO ONE (14:30)
[2020-02-26] MEDS ORDERED: Reglan 10 MG/2 ML IV ONE (14:30)
--- NOTE | 2020-02-26 14:30 | ERPHSYRPT ---
- History of Present Illness Time Seen by Provider: 02/26/20 14:15 Source: patient Exam Limitations: no limitations Physician History: 79 years old female with remote history of migraines, COPD/asthma, hypertension, hyperlipidemia, chronic anemia scheduled to have colonoscopy soon presented in the ER with sudden onset bitemporal headache more on the right waking her up from sleep associated with nausea and couple of episodes of nonprojectile, nonbilious vomiting with no hematemesis. Patient described this as a throbbing headache on the right mormon radiating along the whole right side without any significant aggravating or relieving factors. Patient reports she thinks she got bit on the right mormon last night by wasp or mosquito and had a big bump on it causing pain. She is also complaining of pain in the neck and upper back muscles. Denies any difficulty movements of neck. No visual disturbance, difficulty speech, numbness tingling or focal weakness. She also has nasal congestion for the last couple of days and mild clear mucus productive cough but no shortness of breath or chest pain. Denies any abdominal pain. No fever or chills reported. She has a COVID-19 testing done more than a week ago but does not know the results. Denies any known sick contact with COVID-19. Timing/Duration: today, sudden, worse Quality: sharpness, throbbing Head Pain Location: temporal Severity of Pain-Max: moderate Severity of Pain-Current: moderate Recent Head Trauma: no recent headache/trauma Associated Symptoms: fatigue, nausea/vomiting, nasal congestion, No fever/chills, No sensitive to light Previous symptoms: no prior history Allergies/Adverse Reactions: venom-honey bee [bee venom (honey bee)] Allergy (Intermediate, Verified 01/28/20 17:43) colchicine Allergy (Mild, Verified 01/28/20 17:43) Hives Latex, Natural Rubber Allergy (Mild, Verified 01/28/20 17:43) Rash Sulfa (Sulfonamide Antibiotics) Allergy (Mild, Verified 01/28/20 17:43) Hives Home Medications: Allopurinol 300 mg [Zyloprim 300 mg] 300 mg PO HS 12/08/15 [History] Metoprolol Succinate 50 mg [Toprol Xl 50 MG] 50 mg PO DAILY 12/08/15 [History] Nitroglycerin 0.4 mg Tablet [Nitrostat 0.4 MG Tablet] 0.4 mg SL Q5MIN PRN MR X 3 PRN 12/08/15 [History] Simvastatin 40 mg [Zocor 40 mg] 40 mg PO HS 12/08/15 [History] Fluticasone Propionate [Flonase NASAL] 16 gm NS BIDPRN PRN 01/21/16 [History] Ergocalciferol (Vitamin D2) [Vitamin D] 50,000 unit PO UD 09/01/17 [History] Irbesartan 1 tab PO DAILY 09/01/17 [History] predniSONE [Prednisone] 5 mg PO DAILY 09/01/17 [History] Famotidine 20 mg [Pepcid 20 MG] 1 tab PO BID 09/02/17 [History] Aspirin 325 mg PO DAILY 06/29/19 [History] Docusate Sodium 100 mg [Colace 100 MG] 100 mg PO DAILY PRN PRN 06/29/19 [History] Fluticasone/Salmeterol [Advair 100-50 Diskus] 1 each IH DAILY 06/29/19 [History] Furosemide [Lasix] 40 mg PO BID 06/29/19 [History] Levothyroxine Sodium 25 mg PO DAILY 06/29/19 [History] Hx Tetanus, Diphtheria Vaccination/Date Given: Yes Hx Influenza Vaccination/Date Given: Yes Hx Pneumococcal Vaccination/Date Given: Yes - Review of Systems Constitutional: Fatigue Eyes: No Symptoms Ears, Nose, & Throat: Nose Congestion Respiratory: Cough, No Stridor, No Wheezing Cardiac: No Symptoms Abdominal/Gastrointestinal: Nausea, No Abdominal Pain Genitourinary Symptoms: No Symptoms Musculoskeletal: Back Pain, Neck Pain Skin: No Symptoms Neurological: No Symptoms Psychological: No Symptoms Endocrine: No Symptoms Hematologic/Lymphatic: No Symptoms Immunological/Allergic: No Symptoms - Past Medical History Pertinent Past Medical History: Yes Neurological History: Migraines ENT History: Cataracts Cardiac History: Angina, Congestive Heart Failure, Coronary Artery Disease, High Cholesterol, Hypertension, Peripheral Vascular Disease Respiratory History: Asthma, CHF, COPD, Emphysema, Pneumonia, Other Endocrine Medical History: Hypothyroidism Musculoskeletal History: Degenerative Disk Disease GI Medical History: GERD, Hemorrhoids, Hernia, Polyps History: Other Psycho-Social History: Anxiety, Depression Female Reproductive Disorders: No Pertinent History Other Medical History: RESTRICTIVE LUNG DISEASE, OBESITY, SLEEP APNEA, CHRONIC FATIGUE. frequent UTIs - Past Surgical History Past Surgical History: Yes Neuro Surgical History: No Pertinent History Cardiac: Cardiac Catheterization Respiratory: No Pertinent History Gastrointestinal: Appendectomy, Cholecystectomy Genitourinary: No Pertinent History Musculoskeletal: Orthopedic Surgery Female Surgical History: Hysterectomy Other Surgical History: Bilateral knee surgery. cysts removed from ovaries. - Social History Smoking Status: Former smoker How long have you smoked: 30 years Exposure to second hand smoke: No Drug Use: none Patient Lives Alone: No Significant Family History: no pertinent family hx - Nursing Vital Signs Nursing Vital Signs: Initial Vital Signs Temperature 97.8 F 02/26/20 14:11 Pulse Rate 79 02/26/20 14:11 Respiratory Rate 22 02/26/20 14:11 Blood Pressure 132/50 02/26/20 14:11 O2 Sat by Pulse Oximetry 96 02/26/20 14:11 Pain Scale Pain Intensity 7 - Physical Exam General Appearance: no apparent distress, alert Eye Exam: PERRL/EOMI, eyes nml inspection Ears, Nose, Throat Exam: moist mucous membranes, pharyngeal erythema Neck Exam: normal inspection, non-tender, supple, full range of motion Respiratory Exam: normal breath sounds, lungs clear, No chest tenderness Cardiovascular Exam: regular rate/rhythm, normal heart sounds Gastrointestinal/Abdominal Exam: soft, normal bowel sounds, No tenderness Back Exam: normal inspection Extremity Exam: normal inspection, normal range of motion, pelvis stable Mental Status Exam: alert, oriented x 3, 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 Exam: normal hearing, normal speech, PERRL Coordination/Gait Exam: normal finger to nose, normal cerebellar function Motor/Sensory Exam: no motor deficit, no sensory deficit, no pronator drift, negative Babinski's sign DTR Exam: bicep (R): 2+, bicep (L): 2+, knee (R): 2+, knee (L): 2+ Skin Exam: normal color SpO2 Interpretation: normal SpO2: 96 - Course Nursing assessment & vital signs reviewed: Yes Ordered Tests: Active Orders 24 hr Category Date Time Status IV Insertion STAT Care 02/26/20 14:30 Completed CHEST 1 VIEW (PORTABLE) Stat Exams 02/26/20 14:32 Completed HEAD WITHOUT CONTRAST [CT] Stat Exams 02/26/20 14:31 Completed CBC W DIFF Stat Lab 02/26/20 14:46 Completed CMP Stat Lab 02/26/20 14:46 Completed Manual Differential NC Stat Lab 02/26/20 14:46 Completed Medication Summary Discontinued Medications Generic Name Dose Route Start Last Admin Trade Name Sadaf PRN Reason Stop Dose Admin Acetaminophen 975 mg 02/26/20 14:30 02/26/20 15:18 Tylenol 325 Mg PO 02/26/20 14:31 975 mg STAT ONE Administration Acetaminophen Confirm 02/26/20 15:10 Tylenol 325 Mg Administered 02/26/20 15:11 Dose 975 mg .ROUTE .STK-MED ONE Diphenhydramine HCl 25 mg 02/26/20 14:30 02/26/20 15:15 Benadryl 50 Mg/Ml IV 02/26/20 14:31 25 mg STAT ONE Administration Diphenhydramine HCl Confirm 02/26/20 15:09 Benadryl 50 Mg/Ml Administered 02/26/20 15:10 Dose 50 mg .ROUTE .STK-MED ONE Sodium Chloride 1,000 mls @ 499 mls/hr 02/26/20 14:30 02/26/20 15:22 Sodium Chloride 0.9% 1000 Ml IV 02/26/20 16:30 499 mls/hr .Q2H1M STA Administration Sodium Chloride Confirm 02/26/20 15:10 Sodium Chloride 0.9% 1000 Ml Administered 02/26/20 15:11 Dose 1,000 mls @ ud .ROUTE .STK-MED ONE Metoclopramide HCl 10 mg 02/26/20 14:30 02/26/20 15:14 Reglan 10 Mg/2 Ml IV 02/26/20 14:31 10 mg STAT ONE Administration Metoclopramide HCl Confirm 02/26/20 15:10 Reglan 10 Mg/2 Ml Administered 02/26/20 15:11 Dose 10 mg .ROUTE .STK-MED ONE Lab/Rad Data: Laboratory Result Diagrams 02/26/20 14:46 02/26/20 14:46 Laboratory Results 02/26/20 02/26/20 Range/Units 14:46 14:46 WBC 7.9 (4.0-10.5) K/mm3 RBC 3.18 L (4.1-5.4) M/mm3 Hgb 8.9 L (12.0-16.0) gm/dl Hct 30.3 L (35-47) % MCV 95.3 (78-100) fl MCH 28.0 (26-32) pg MCHC 29.4 L (32-36) g/dl RDW 18.0 H (11.5-14.0) % Plt Count 301 (150-450) K/mm3 MPV 11.5 H (7.5-11.0) fl Gran % 52.1 (36.0-66.0) % Eos # (Auto) 0.31 (0-0.5) Absolute Lymphs (auto) 1.95 (1.0-4.6) Absolute Monos (auto) 0.62 (0.0-1.3) Lymphocytes % 24.7 (24.0-44.0) % Monocytes % 7.9 (0.0-12.0) % Eosinophils % 3.9 (0.00-5.0) % Basophils % 11.4 (0.0-0.4) % Absolute Granulocytes 4.11 (1.4-6.9) Segmented Neutrophils 81 H (36.0-66.0) % Lymphocytes (Manual) 17 L (24-44) % Monocytes (Manual) 2 (0.0-12.0) % Basophils # 0.90 H (0-0.4) Platelet Estimate NORMAL (NORMAL) RBC Morphology ABNORMAL Polychromasia 1+ Poikilocytosis 1+ Anisocytosis 1+ Sodium 138 (137-145) mmol/L Potassium 4.0 (3.5-5.1) mmol/L Chloride 107 (98-107) mmol/L Carbon Dioxide 26 (22-30) mmol/L Anion Gap 8.9 (5-15) MEQ/L BUN 24 H (7-17) mg/dL Creatinine 1.48 H (0.52-1.04) mg/dL Estimated GFR 36.3 ML/MIN Glucose 117 H (74-106) mg/dL Calcium 9.0 (8.4-10.2) mg/dL Total Bilirubin 0.60 (0.2-1.3) mg/dL AST 18 (14-36) U/L ALT 12 (0-35) U/L Alkaline Phosphatase 96 (38-126) U/L Serum Total Protein 6.6 (6.3-8.2) g/dL Albumin 3.6 (3.5-5.0) g/dL - Progress Progress: improved, re-examined Air Movement: good Progress Note: 02/26/20 16:12 I have given her a small bolus of fluid along with Reglan and Benadryl, on r eevaluation patient is feeling better. She does not have any signs of meningismus. I have obtained CT head because of her acute headache which is negative. She has anemia which is stable around 9. She is scheduled to have colonoscopy because of having bleeding polyp/hemorrhoids. She does have some URI symptoms. It could be a sequela of URI/viral syndrome, recommended supportive care and outpatient follow-up. Discussed signs symptoms of worsening needing return to ER which he seems understanding. Blood Culture(s) Obtained: No Antibiotics given: No Counseled pt/family regarding: lab results, diagnosis, need for follow-up, rad results - Departure Departure Disposition: Home Clinical Impression: Viral syndrome Headache Qualifiers: Headache type: unspecified Headache chronicity pattern: acute headache Intractability: not intractable Qualified Code(s): R51.9 - Headache, unspecified Condition: Stable Critical Care Time: No Referrals: KENAN BIRMINGHAM MD [Primary Care Provider] - Follow Up with PCP/3 days Instructions: Headache, Adult (DC), Viral Syndrome (DC) Additional Instructions: Take Tylenol as needed for headache. Continue with your inhaler. Follow-up with primary care physician for reevaluation. Return to ER for worsening headache, fever chills etc.
[2020-02-26 14:53] LABS: Absolute Neutrophil Ct (ANC) 4.11 (1.4-6.9); BASOPHIL % 11.4 % (0.0-0.4); Eosinophil % 3.9 % (0.00-5.0); Eosinophil (Absolute #) 0.31 (0-0.5); Hematocrit 30.3 % (35-47); Hemoglobin 8.9 gm/dl (12.0-16.0); Lymphocyte (Absolute #) 1.95 (1.0-4.6); Lymphocytes % 24.7 % (24.0-44.0); Mean Cell Volume 95.3 fl (78-100); Mean Corpuscular Hgb Concent. 29.4 g/dl (32-36); Mean Platelet Volume 11.5 fl (7.5-11.0); Monocyte (Absolute #) 0.62 (0.0-1.3); Monocytes % 7.9 % (0.0-12.0); Neutrophil % 52.1 % (36.0-66.0); Platelet Count 301 K/mm3 (150-450); Red Blood Count 3.18 M/mm3 (4.1-5.4); White Blood Count 7.9 K/mm3 (4.0-10.5)
[2020-02-26 15:01] LABS: ALBUMIN 3.6 g/dL (3.5-5.0); ANION GAP 8.9 MEQ/L (5-15); BILIRUBIN,TOTAL 0.6 mg/dL (0.2-1.3); Creatinine 1 1.48 mg/dL (0.52-1.04); EST GLOMERULAR FILTRATION RATE 36.3 ML/MIN; Total Protein 6.6 g/dL (6.3-8.2)
[2020-02-26] MEDS ORDERED: BENADRYL 50 MG/ML ONE (15:09)
[2020-02-26] MEDS ORDERED: TYLENOL 325 MG ONE (15:10)
[2020-02-26] MEDS ORDERED: Sodium Chloride 0.9% 1000 ML 1,000 ML ONE (15:10)
[2020-02-26] MEDS ORDERED: Reglan 10 MG/2 ML ONE (15:10)
[2020-02-26 16:03] VITALS: BP 150/55; PULSE 74
[2020-02-26 16:16] LABS: ANISOCYTOSIS 1+; Lymphocytes 17 % (24-44); Monocyte 2 % (0.0-12.0); Neutrophils 81 % (36.0-66.0); Platelet Estimate NORMAL (NORMAL); Poikilocytosis 1+; Polychromasia 1+; Total Cells Counted 100
[2020-02-26 16:17] VITALS: O2SAT 96
--- NOTE | 2020-02-26 17:16 | XRAY ---
Indication: Weakness. Comparison: June 29, 2019. Portable chest again demonstrates minimal left base atelectasis/scarring and tiny right apical calcified granuloma. No focal infiltrate, consolidation, or large effusion. Heart is not enlarged. Bony thorax intact again with mild degenerative changes and old distal right clavicle deformity. Impression: Nonacute chest with chronic features.
--- NOTE | 2020-02-26 17:18 | XRAY ---
Indication: Headache. Multiple contiguous axial images obtained through the head without contrast. Comparison: January 28, 2020. Stable age-appropriate global atrophy. Again no acute intracranial hemorrhage, abnormal extra-axial fluid collection, or mass effect. Fourth ventricle is midline without hydrocephalus. Bony calvarium intact. Visualized paranasal sinuses and mastoid air cells are clear. Impression: Continued negative CT head without contrast exam. Comment: Preliminary interpretation was made by [facility]. No critical discrepancy.
== END 2020-02-26 16:40 | disposition home or self-care (01) ==
LOC: ED 13:51
DX: R51.9 Headache, unspecified (principal); B34.9 Viral infection, unspecified; R53.83 Other fatigue; R11.2 Nausea with vomiting, unspecified; R09.81 Nasal congestion; Z79.899 Other long term (current) drug therapy; I50.9 Heart failure, unspecified; I10 Essential (primary) hypertension; I25.10 Atherosclerotic heart disease of native coronary artery without angina pectoris; E78.00 Pure hypercholesterolemia, unspecified; E03.9 Hypothyroidism, unspecified; I73.9 Peripheral vascular disease, unspecified
CPT/HCPCS: 36000; 36415; 70450; 71045; 80053; 85025; 96360; 96374; 99284; U0003; 96365; J1200; A9270-GY

== ENCOUNTER 2020-06-03 04:24 | Inpatient (IN) | payer MEDICARE ==
[2020-06-03] MEDS ORDERED: PROTONIX 40 MG IV IV ONE ×3 (05:07→07:47)
[2020-06-03 05:22] LABS: Hematocrit 28.5 % (35-47); Hemoglobin 8.3 gm/dl (12.0-16.0); Mean Corpuscular Hemoglobin 27.9 pg (26-32); Mean Corpuscular Hgb Concent. 29.1 g/dl (32-36); Mean Platelet Volume 12.2 fl (7.5-11.0); Platelet Count 376 K/mm3 (150-450); Red Blood Count 2.97 M/mm3 (4.1-5.4); Red Cell Distribution Width 18.4 % (11.5-14.0); White Blood Count 10.2 K/mm3 (4.0-10.5)
--- NOTE | 2020-06-03 05:32 | ERPHSYRPT ---
- History of Present Illness Historian: patient Exam Limitations: no limitations Patient Subjective Stated Complaint: pt states she woke up with heart burn and chest pain. states she vomited several times and and was blood. states she is having pain in her chest and throat and describes as tightness and pressure Triage Nursing Assessment: pt alert and oriented, answers questions approp. pt able to speak in complete sentences without difficulty. pt back per wheelchai, t ransfers to stretcher per self with steady gait noted. pt short of breath with exertion. bowel sounds hyper x4 quads. skin warm and dry. heart rate 80's sinus rhythm with pac's Timing/Duration: today Quality: burning, pressure Abdominal Pain Onset Location: epigastric Pain Radiation: other (Neck) Severity of Pain-Max: mild Severity of Pain-Current: none Modifying Factors: Improves With: vomiting Associated Symptoms: vomiting (Blood) Previous symptoms: no prior history Hx Tetanus, Diphtheria Vaccination/Date Given: Yes Hx Influenza Vaccination/Date Given: Yes Hx Pneumococcal Vaccination/Date Given: Yes Immunizations Up to Date: Yes <RAFAEL GLASER - Last Filed: 06/03/20 06:46> <JOSE MIRZA - Last Filed: 06/03/20 08:11> - History of Present Illness Time Seen by Provider: 06/03/20 04:40 Physician History: This is a 80-year-old morbidly obese white female with a history of atrial fibrillation on Eliquis, CHF, COPD, gastroesophageal reflux disease, renal insufficiency, chronic anemia and hypothyroidism who presents with heartburn that woke her up this morning. It was sudden in onset. She then noticed some chest pressure that went up into her neck bilaterally. She then had several episodes of vomiting and there was significant blood in the vomitus. Patient molly herman to the emergency department with no further episodes of hematemesis and has resolution of her chest pressure. (RAFAEL GLASER) Allergies/Adverse Reactions: venom-honey bee [bee venom (honey bee)] Allergy (Intermediate, Verified 06/03/20 04:45) colchicine Allergy (Mild, Verified 06/03/20 04:45) Hives Latex, Natural Rubber Allergy (Mild, Verified 06/03/20 04:45) Rash Sulfa (Sulfonamide Antibiotics) Allergy (Mild, Verified 06/03/20 04:45) Hives sulfamethoxazole [From Bactrim] Allergy (Mild, Verified 06/03/20 04:45) Rash trimethoprim [From Bactrim] Allergy (Mild, Verified 06/03/20 04:45) Rash Home Medications: Allopurinol 300 mg [Zyloprim 300 mg] 300 mg PO HS 12/08/15 [History] Metoprolol Succinate 50 mg [Toprol Xl 50 MG] 50 mg PO DAILY 12/08/15 [History] Nitroglycerin 0.4 mg Tablet [Nitrostat 0.4 MG Tablet] 0.4 mg SL Q5MIN PRN MR X 3 PRN 12/08/15 [History] Simvastatin 40 mg [Zocor 40 mg] 40 mg PO HS 12/08/15 [History] Fluticasone Propionate [Flonase NASAL] 16 gm NS BIDPRN PRN 01/21/16 [History] Ergocalciferol (Vitamin D2) [Vitamin D] 50,000 unit PO UD 09/01/17 [History] Irbesartan 1 tab PO DAILY 09/01/17 [History] predniSONE [Prednisone] 5 mg PO DAILY 09/01/17 [History] Famotidine 20 mg [Pepcid 20 MG] 1 tab PO BID 09/02/17 [History] Aspirin 325 mg PO DAILY 06/29/19 [History] Docusate Sodium 100 mg [Colace 100 MG] 100 mg PO DAILY PRN PRN 06/29/19 [History] Fluticasone/Salmeterol [Advair 100-50 Diskus] 1 each IH DAILY PRN PRN 06/29/19 [History] Furosemide [Lasix] 40 mg PO BID PRN 06/29/19 [History] Levothyroxine Sodium 25 mg PO DAILY 06/29/19 [History] Apixaban [Eliquis] 2.5 mg PO BID 06/03/20 [History] Travel Risk - International Travel Have you traveled outside of the country in past 3 weeks: No - Coronavirus Screening Are you exhibiting any of the following symptoms?: No Close contact with a COVID-19 positive Pt in past 14-21 Days: No <RAFAEL GLASER - Last Filed: 06/03/20 06:46> - Review of Systems Constitutional: No Symptoms Eyes: No Symptoms Ears, Nose, & Throat: No Symptoms Respiratory: No Symptoms Cardiac: Chest Pain (Described as pressure and heartburn) Abdominal/Gastrointestinal: Hematemesis Genitourinary Symptoms: No Symptoms Musculoskeletal: No Symptoms Skin: No Symptoms Neurological: No Symptoms Psychological: No Symptoms Endocrine: No Symptoms Hematologic/Lymphatic: No Symptoms Immunological/Allergic: No Symptoms All Other Systems: Reviewed and Negative <RAFAEL GLASER - Last Filed: 06/03/20 06:46> - Past Medical History Pertinent Past Medical History: Yes Neurological History: Migraines ENT History: Cataracts Cardiac History: Angina, Arrhythmia, Congestive Heart Failure, Coronary Artery Disease, High Cholesterol, Hypertension, Peripheral Vascular Disease Respiratory History: Asthma, CHF, COPD, Emphysema, Pneumonia, Other Endocrine Medical History: Hypothyroidism Musculoskeletal History: Degenerative Disk Disease GI Medical History: GERD, Hemorrhoids, Hernia, Polyps History: Other Psycho-Social History: Anxiety, Depression Female Reproductive Disorders: No Pertinent History Other Medical History: RESTRICTIVE LUNG DISEASE, OBESITY, SLEEP APNEA, CHRONIC FATIGUE. frequent UTIs - Past Surgical History Past Surgical History: Yes Neuro Surgical History: No Pertinent History Cardiac: Cardiac Catheterization Respiratory: No Pertinent History Gastrointestinal: Appendectomy, Cholecystectomy Genitourinary: No Pertinent History Musculoskeletal: Orthopedic Surgery Female Surgical History: Hysterectomy Other Surgical History: Bilateral knee surgery. cysts removed from ovaries. - Social History Smoking Status: Former smoker How long have you smoked: 30 years Exposure to second hand smoke: No Drug Use: none Patient Lives Alone: No Significant Family History: no pertinent family hx <RAFAEL GLASER - Last Filed: 06/03/20 06:46> - Physical Exam General Appearance: no apparent distress, alert, anxiety, obese Eye Exam: PERRL/EOMI, eyes nml inspection Ears, Nose, Throat Exam: normal ENT inspection, moist mucous membranes Neck Exam: normal inspection, non-tender, supple, full range of motion Respiratory Exam: normal breath sounds, chest tenderness, lungs clear, airway intact, No respiratory distress Cardiovascular Exam: regular rate/rhythm, normal heart sounds, normal peripheral pulses Gastrointestinal/Abdomen Exam: soft, normal bowel sounds, No tenderness Pelvic Exam: not done Rectal Exam: not done Back Exam: normal inspection, normal range of motion, No CVA tenderness, No vertebral tenderness Extremity Exam: normal inspection, normal range of motion, pelvis stable Neurologic Exam: alert, oriented x 3, 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, 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 tested, normal mood/affect, nml cerebellar function, nml station & gait, sensation nml Skin Exam: normal color, warm, dry Lymphatic Exam: No adenopathy SpO2 Interpretation: normal SpO2: 97 O2 Delivery: Room Air <RAFAEL GLASER - Last Filed: 06/03/20 06:46> - Nursing Vital Signs Nursing Vital Signs: Initial Vital Signs Pulse Rate 80 06/03/20 04:30 Respiratory Rate 22 06/03/20 04:30 Blood Pressure 155/56 06/03/20 04:30 O2 Sat by Pulse Oximetry 97 06/03/20 04:30 Pain Scale Pain Intensity 3 - Course Nursing assessment & vital signs reviewed: Yes EKG Interpreted by Me: RATE (84), Sinus Rhythm, NORMAL AXIS, NORMAL INTERVALS, NORMAL QRS, NORMAL ST-T, Other (No acute ischemic changes. When compared to the EKG dated 01/28/2020 her atrial fibrillation has resolved on today's EKG.) <RAFAEL GLASER - Last Filed: 06/03/20 06:46> Ordered Tests: Active Orders 24 hr Category Date Time Status Saloon Keeper STAT Care 06/03/20 05:07 Active EKG-ER Only STAT Care 06/03/20 05:05 Active IV Insertion STAT Care 06/03/20 05:05 Active CBC W DIFF Stat Lab 06/03/20 05:10 Completed CMP Stat Lab 06/03/20 05:10 Completed Manual Differential NC Stat Lab 06/03/20 05:10 Completed NT PRO BNP Stat Lab 06/03/20 05:10 Completed TROPONIN Q3H Lab 06/03/20 05:10 Completed TROPONIN Q3H Lab 06/03/20 08:15 Ordered TROPONIN Q3H Lab 06/03/20 11:15 Ordered TROPONIN Q3H Lab 06/03/20 14:15 Ordered TROPONIN Q3H Lab 06/03/20 17:15 Ordered Transfer Order Routine Transfer 06/03/20 Ordered Medication Summary Generic Name Dose Route Start Last Admin Trade Name Freq PRN Reason Stop Dose Admin Pantoprazole Sodium 80 mg/ 500 mls @ 50 mls/hr 06/03/20 07:45 06/03/20 08:02 Sodium Chloride IV 07/03/20 07:44 50 mls/hr .Q10H JAMEE 50 mls/hr Administration Discontinued Medications Generic Name Dose Route Start Last Admin Trade Name Sadaf PRN Reason Stop Dose Admin Sodium Chloride Confirm 06/03/20 07:47 Sodium Chloride 0.9% 500 Ml Administered 06/03/20 07:48 Dose 500 mls @ ud IV .STK-MED ONE Pantoprazole Sodium 40 mg 06/03/20 05:07 06/03/20 05:13 Protonix 40 Mg Iv IV 06/03/20 05:08 40 mg STAT ONE Administration Pantoprazole Sodium Confirm 06/03/20 05:10 Protonix 40 Mg Iv Administered 06/03/20 05:11 Dose 40 mg IV .STK-MED ONE Pantoprazole Sodium Confirm 06/03/20 07:47 Protonix 40 Mg Iv Administered 06/03/20 07:48 Dose 40 mg IV .STK-MED ONE Lab/Rad Data: Laboratory Result Diagrams 06/03/20 05:10 06/03/20 05:10 Laboratory Results 06/03/20 06/03/20 06/03/20 Range/Units 05:10 05:10 05:10 WBC 10.2 (4.0-10.5) K/mm3 RBC 2.97 L (4.1-5.4) M/mm3 Hgb 8.3 L (12.0-16.0) gm/dl Hct 28.5 L (35-47) % MCV 96.0 (78-100) fl MCH 27.9 (26-32) pg MCHC 29.1 L (32-36) g/dl RDW 18.4 H (11.5-14.0) % Plt Count 376 (150-450) K/mm3 MPV 12.2 H (7.5-11.0) fl Segmented Neutrophils 70 H (36.0-66.0) % Lymphocytes (Manual) 23 L (24-44) % Monocytes (Manual) 2 (0.0-12.0) % Eosinophils (Manual) 4 H (0.00-3.0) % Basophils (Manual) 1 (0.0-1.0) % Hypochromia 1+ Platelet Estimate NORMAL (NORMAL) RBC Morphology ABNORMAL Polychromasia 1+ Anisocytosis 1+ Sodium 137 (137-145) mmol/L Potassium 4.5 (3.5-5.1) mmol/L Chloride 106 (98-107) mmol/L Carbon Dioxide 22 (22-30) mmol/L Anion Gap 13.8 (5-15) MEQ/L BUN 55 H (7-17) mg/dL Creatinine 1.98 H (0.52-1.04) mg/dL Estimated GFR 25.9 ML/MIN Glucose 103 (74-106) mg/dL Calcium 8.6 (8.4-10.2) mg/dL Total Bilirubin 0.40 (0.2-1.3) mg/dL AST 19 (14-36) U/L ALT 12 (0-35) U/L Alkaline Phosphatase 83 (38-126) U/L Troponin I < 0.012 (0.000-0.034) ng/mL NT-Pro-B Natriuret Pep 850 (0-1800) pg/mL Serum Total Protein 6.9 (6.3-8.2) g/dL Albumin 3.8 (3.5-5.0) g/dL - Progress Progress: pain not gone completely, re-examined Counseled pt/family regarding: lab results, diagnosis, need for follow-up <RAFAEL GLASER - Last Filed: 06/03/20 06:46> - Progress Discussed with Dr.: Hernández <JOSE MIRZA - Last Filed: 06/03/20 08:11> - Progress Progress Note: 06/03/20 06:47 Medical decision making: This patient has a history of atrial fib/flutter on Eliquis. She is having some chest pressure and chest burning. It is still present at the time of transfer of care to Dr. Mirza. Therefore, we will keep her here for 3-hour evaluation. She also has a history of anemia chronically. 3 months ago her hemoglobin is 8.9 and today is 8.3. This is the only episode of acute bleeding since that time. I reviewed the completed work-up results with Dr. Mirza and informed him of the pending lab tests. I believe the patient can be discharged to home if her 3-hour troponin is normal. She is to stop her Eliquis and repeat the CBC on 06/05/2020. I will leave the final disposition to Dr. Mirza. (RAFAEL GLASER) 06/03/20 08:09 Patient is checked out to me at shift change from Dr. Glaser. Patient presented with heartburns and hematemesis with substernal chest discomfort. Patient hemoglobin is 8.3. Her initial troponins are negative. EKG normal sinus rhythm. This could be the very first episode of bleeding and she might be bleeding currently. She is started on Protonix drip. I believe patient needs frequent H&H monitoring and possible endoscopy during this admission or immediately after discharge. Discussed with Dr. Lennon and patient is admitted. (JOSE MIRZA) - Departure Departure Disposition: Home Critical Care Time: No <RAFAEL GLASER - Last Filed: 06/03/20 06:46> - Departure Departure Disposition: Observation <JOSE MIRZA - Last Filed: 06/03/20 08:11> - Departure Clinical Impression: Chest pain Qualifiers: Chest pain type: unspecified Qualified Code(s): R07.9 - Chest pain, unspecified Hematemesis Qualifiers: Nausea presence: with nausea Qualified Code(s): K92.0 - Hematemesis Condition: Stable Referrals: KENAN BIRMINGHAM MD [Primary Care Provider] -
[2020-06-03 05:38] LABS: ALBUMIN 3.8 g/dL (3.5-5.0); ANION GAP 13.8 MEQ/L (5-15); BILIRUBIN,TOTAL 0.4 mg/dL (0.2-1.3); Calcium 8.6 mg/dL (8.4-10.2); Creatinine 1 1.98 mg/dL (0.52-1.04); EST GLOMERULAR FILTRATION RATE 25.9 ML/MIN; Potassium 4.5 mmol/L (3.5-5.1); Total Protein 6.9 g/dL (6.3-8.2)
[2020-06-03 05:48] LABS: ANISOCYTOSIS 1+; Basophil 1 % (0.0-1.0); Eosinophil 4 % (0.00-3.0); Hypochromia 1+; Lymphocytes 23 % (24-44); Monocyte 2 % (0.0-12.0); Neutrophils 70 % (36.0-66.0); Platelet Estimate NORMAL (NORMAL); Polychromasia 1+; Total Cells Counted 100
[2020-06-03] MEDS ORDERED: Sodium Chloride 0.9% 500 ML 0 ML IV ONE (07:47)
[2020-06-03] MEDS: PROTONIX 40 MG IV*** 80 MG in Sodium Chloride 0.9% 500 ML 500 ML IV SCH ×2 (08:02→18:13)
[2020-06-03] MEDS ORDERED: Zofran 4 MG/2 ML VIAL IV PRN (10:00)
[2020-06-03] MEDS ORDERED: Colace 100 MG PO PRN (10:51)
[2020-06-03] MEDS ORDERED: NON-FORMULARY ITEM (Fluticasone/Salmeterol [Advair 100-50 Diskus] 1 EACH) IH PRN (10:51)
[2020-06-03] MEDS ORDERED: Nitrostat 0.4 MG Tablet SL PRN (10:51)
[2020-06-03] MEDS ORDERED: Flonase NASAL NS PRN (10:51)
[2020-06-03] MEDS ORDERED: ADVAIR HFA 45/21 COMMON CANISTER IH PRN (11:00)
[2020-06-03 11:45] LABS: Hematocrit 26.9 % (35-47); Hemoglobin 7.9 gm/dl (12.0-16.0)
[2020-06-03] MEDS: Avapro 150 MG PO SCH (12:46)
[2020-06-03] MEDS: Pepcid 20 MG PO SCH ×2 (12:46→22:32)
[2020-06-03] MEDS: SYNTHROID 25 MCG PO SCH (12:47)
[2020-06-03] MEDS: Toprol Xl 50 MG PO SCH (12:47)
[2020-06-03] MEDS ORDERED: DUONEB 0.5-3 MG/3 ml Neb IH SCH (13:00)
[2020-06-03] MEDS: TYLENOL 325 MG PO PRN (19:20)
[2020-06-03] MEDS: ZYLOPRIM 300 MG PO SCH (22:32)
[2020-06-03] MEDS: ZOCOR 20MG PO SCH (22:32)
[2020-06-04] MEDS: PROTONIX 40 MG IV*** 80 MG in Sodium Chloride 0.9% 500 ML 500 ML IV SCH (03:52)
[2020-06-04 06:27] LABS: Hematocrit 26.4 % (35-47); Hemoglobin 7.7 gm/dl (12.0-16.0); Mean Corpuscular Hgb Concent. 29.2 g/dl (32-36); Mean Platelet Volume 12.2 fl (7.5-11.0); Platelet Count 308 K/mm3 (150-450); Red Blood Count 2.75 M/mm3 (4.1-5.4); Red Cell Distribution Width 18.1 % (11.5-14.0); White Blood Count 7.3 K/mm3 (4.0-10.5)
[2020-06-04 06:51] LABS: ALBUMIN 3.1 g/dL (3.5-5.0); ANION GAP 10.2 MEQ/L (5-15); BILIRUBIN,TOTAL 0.4 mg/dL (0.2-1.3); Calcium 8.2 mg/dL (8.4-10.2); Creatinine 1 1.83 mg/dL (0.52-1.04); EST GLOMERULAR FILTRATION RATE 28.4 ML/MIN; Potassium 4.8 mmol/L (3.5-5.1); Total Protein 5.9 g/dL (6.3-8.2)
[2020-06-04 07:14] LABS: ANISOCYTOSIS 1+; Eosinophil 4 % (0.00-3.0); Hypochromia 1+; Lymphocytes 24 % (24-44); Monocyte 7 % (0.0-12.0); Neutrophils 65 % (36.0-66.0); Nucleated Red Blood Cell 1 %; Poikilocytosis 1+; Polychromasia 1+; Total Cells Counted 100
[2020-06-04 07:17] LABS: Platelet Estimate NORMAL (NORMAL)
[2020-06-04] MEDS: Pepcid 20 MG PO SCH ×2 (09:57→21:55)
[2020-06-04] MEDS: Avapro 150 MG PO SCH (09:57)
[2020-06-04] MEDS: SYNTHROID 25 MCG PO SCH (09:57)
[2020-06-04] MEDS: Toprol Xl 50 MG PO SCH (09:57)
[2020-06-04] MEDS ORDERED: IMODIUM 2 MG PO PRN (13:25)
[2020-06-04 16:25] LABS: ABO TYPING A; Antibody Screen NEGATIVE (NEGATIVE); RH TYPING POSITIVE
[2020-06-04 16:27] LABS: CROSS MATCH (PRBC) COMPATIBLE (COMPATIBLE)
[2020-06-04] MEDS ORDERED: Sodium Chloride 0.9% 500 ML 500 ML IV ONE (17:49)
[2020-06-04] MEDS: ZOCOR 20MG PO SCH (21:55)
[2020-06-04] MEDS: ZYLOPRIM 300 MG PO SCH (21:55)
[2020-06-05] MEDS: PROTONIX 40 MG IV*** 80 MG in Sodium Chloride 0.9% 500 ML 500 ML IV SCH ×2 (01:50→14:39)
[2020-06-05 02:47] LABS: Hemoglobin 8.3 gm/dl (12.0-16.0)
[2020-06-05 06:44] LABS: Hematocrit 30.4 % (35-47); Hemoglobin 8.9 gm/dl (12.0-16.0); Mean Cell Volume 96.2 fl (78-100); Mean Corpuscular Hemoglobin 28.2 pg (26-32); Mean Corpuscular Hgb Concent. 29.3 g/dl (32-36); Mean Platelet Volume 12.1 fl (7.5-11.0); Platelet Count 287 K/mm3 (150-450); Red Blood Count 3.16 M/mm3 (4.1-5.4); Red Cell Distribution Width 17.7 % (11.5-14.0); White Blood Count 7.6 K/mm3 (4.0-10.5)
[2020-06-05] MEDS ORDERED: VITAMIN D2 PO SCH (10:00)
[2020-06-05] MEDS: SYNTHROID 25 MCG PO SCH (10:22)
[2020-06-05] MEDS: Pepcid 20 MG PO SCH ×2 (10:22→20:58)
[2020-06-05] MEDS: Avapro 150 MG PO SCH (10:23)
[2020-06-05] MEDS: Toprol Xl 50 MG PO SCH (10:23)
--- NOTE | 2020-06-05 11:34 | HP ---
CHIEF COMPLAINT: Hematemesis, heartburn. HISTORY OF PRESENT ILLNESS: The patient is a 80 year old white female who reports that she has been having black stools over the past three days but this actually stopped. She reported that she began having some severe heartburn and began having problems with hematemesis. She was brought into the emergency room for evaluation and management. 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 Prior to this time she actually had a nosebleed and other changes had been made to her medical management. The patient is currently being taken care of by Dr. Matta. PAST MEDICAL HISTORY: Otherwise significant for heart failure, coronary artery disease, asthma, chronic obstructive pulmonary disease, hypothyroid, gastroesophageal reflux disease, anxiety, depression. PAST SURGICAL HISTORY: She has had two cardiac catheterizations, appendectomy, cholecystectomy, hysterectomy, bilateral knee surgeries and ovarian cysts removed. HOME MEDICATIONS: Includes metoprolol extended release 50 mg daily, nitroglycerin PRN, prednisone 5 mg tablet daily, Simvastatin 40 mg a day, Allopurinol 300 mg a day, Eliquis 2.5 mg b.i.d., aspirin 325 mg a day, docusate sodium 100 mg PRN, vitamin D 50,000 units weekly, famotidine 20 mg b.i.d., fluticasone nasal spray, Advair inhaler, Lasix 40 mg b.i.d. PRN for leg swelling, Irbesartan 150 mg daily, levothyroxine 25 mcg daily, Imodium PRN. ALLERGIES: COLCHICINE. SULFA. BACTRIM. LATEX. PHYSICAL EXAMINATION: HEENT: Normocephalic, atraumatic. Pupils equal round reactive to light. Extraocular movements intact. Oropharynx is pink and moist. NECK: Supple without lymphadenopathy, thyromegaly or JVD. CHEST: Clear to auscultation with good air movement bilaterally. HEART: Regular rate and rhythm without murmurs, rubs or gallops. ABDOMEN: Soft, nontender, nondistended without hepatosplenomegaly or masses. EXTREMITIES: Without cyanosis, clubbing or edema. NEUROLOGIC: The patient is alert and oriented x3 with no focal deficits noted. LAB DATA AND TESTS: The patient's labs have shown troponin less than 0.012 on two readings already. Hemoglobin 8.3 and the most recent study approximately a week ago showed her to be 8.9. Her white count is 10,200, PLT 376,000. Her metabolic panel showed glucose 103, BUN 55, creatinine 1.98. Electrolytes and liver enzymes were normal. ProBNP is normal. The patient's EKG showed normal sinus rhythm with no ST-T wave changes and essentially fairly normal looking EKG. ASSESSMENT: A patient with hematemesis probable upper GI bleeding. She has been cleared for IV continuous Protonix. We discontinued her Eliquis. She has been monitored with hemoglobin and hematocrit, will continue to check her troponin. If the patient has any further drops in hemoglobin, she has been discussed the possibility of needing transfusion and possible surgical consultation.
[2020-06-05] MEDS ORDERED: Sodium Chloride 0.9% 500 ML 500 ML IV ONE (12:45)
[2020-06-05] MEDS ORDERED: Sodium Chloride 0.9% 500 ML 500 ML IV SCH (13:00)
[2020-06-05] MEDS ORDERED: DIPRIVAN 200 MG/20 ML IV ONE (13:30)
[2020-06-05] MEDS: ZYLOPRIM 300 MG PO SCH (20:58)
[2020-06-05] MEDS: ZOCOR 20MG PO SCH (20:58)
[2020-06-05] MEDS: TYLENOL 325 MG PO PRN (21:03)
[2020-06-06] MEDS: PROTONIX 40 MG IV*** 80 MG in Sodium Chloride 0.9% 500 ML 500 ML IV SCH (03:42)
[2020-06-06 05:16] LABS: Hematocrit 29.7 % (35-47); Hemoglobin 8.6 gm/dl (12.0-16.0); Mean Cell Volume 97.4 fl (78-100); Mean Corpuscular Hemoglobin 28.2 pg (26-32); Mean Platelet Volume 12.2 fl (7.5-11.0); Platelet Count 269 K/mm3 (150-450); Red Blood Count 3.05 M/mm3 (4.1-5.4); Red Cell Distribution Width 17.7 % (11.5-14.0); White Blood Count 5.3 K/mm3 (4.0-10.5)
[2020-06-06 06:10] LABS: BAND 1 % (0.0-2.0); Basophil 1 % (0.0-1.0); Lymphocytes 2 % (24-44); Monocyte 2 % (0.0-12.0); Neutrophils 94 % (36.0-66.0); Total Cells Counted 100
[2020-06-06 06:11] LABS: ANISOCYTOSIS 2+; Platelet Estimate NORMAL (NORMAL); Poikilocytosis 1+; Polychromasia 1+; Toxic Granulation 1+
[2020-06-06 06:12] LABS: Hypersegmented Polys 1+
[2020-06-06 07:36] VITALS: BP 149/63; PULSE 80; O2SAT 95
--- NOTE | 2020-06-06 08:22 | PCM.NOTE ---
Date and Time: 06/05/20819 Subjective Assessment: doing ok, last 24 hours events noted. - Review of Systems Constitutional: No Fever, No Chills Eyes: No Symptoms Ears, Nose, & Throat: No Symptoms Respiratory: No Cough, No Short Of Breath Cardiac: No Chest Pain, No Edema, No Syncope Abdominal/Gastrointestinal: No Abdominal Pain, No Nausea, No Vomiting, No Diarrhea Genitourinary Symptoms: No Dysuria Musculoskeletal: No Back Pain, No Neck Pain Skin: No Rash Neurological: No Dizziness, No Focal Weakness, No Sensory Changes Psychological: No Symptoms Endocrine: No Symptoms Hematologic/Lymphatic: No Symptoms Immunological/Allergic: No Symptoms Objective Exam General Appearance: no apparent distress, alert Neurologic Exam: alert, oriented x 3, cooperative, normal mood/affect, nml cerebellar function, sensation nml, No motor deficits Skin Exam: normal color, warm, dry Eye Exam: PERRL, EOMI, eyes nml inspection Ears, Nose, Throat Exam: normal ENT inspection, pharynx normal, moist mucous membranes Neck Exam: normal inspection, non-tender, supple, full range of motion Respiratory Exam: normal breath sounds, lungs clear, No respiratory distress Cardiovascular Exam: regular rate/rhythm, normal heart sounds Gastrointestinal/Abdomen Exam: soft, No tenderness, No mass Extremity Exam: normal inspection, normal range of motion Back Exam: normal inspection, normal range of motion, No CVA tenderness, No vertebral tenderness Pelvic Exam: deferred Rectal Exam: deferred OBJECTIVE DATA Vital Signs: Vital Signs - 24 hr Temp Pulse Resp BP Pulse Ox 06/06/20 07:35 98.0 F 80 16 149/63 95 06/06/20 07:00 89 16 94 L 06/06/20 04:00 98.3 F 84 20 140/64 96 06/05/20 23:53 97.9 F 78 19 117/55 94 L 06/05/20 20:00 97.6 F 79 20 137/56 97 06/05/20 18:43 96 06/05/20 16:00 97.9 F 99 H 20 117/59 94 L 06/05/20 12:37 98.2 F 133 H 20 130/52 94 L 06/05/20 11:58 98.2 F 133 H 20 130/52 94 L Pain Assessment - Last Documented Pain Intensity 1 Pain Scale Used 0-10 Pain Scale Intake and Output: Intake & Output 06/03/20 06/04/20 06/05/20 06/06/20 11:59 11:59 11:59 11:59 Intake Total 3092 1522 780 Output Total 128 795 Balance 3092 672 -170 Weight 129.8 kg 129.6 kg 131.6 kg 134.1 kg Lab Results: Lab Results-Last 24 Hours 06/06/20 Range/Units 04:50 WBC 5.3 (4.0-10.5) K/mm3 RBC 3.05 L (4.1-5.4) M/mm3 Hgb 8.6 L (12.0-16.0) gm/dl Hct 29.7 L (35-47) % MCV 97.4 (78-100) fl MCH 28.2 (26-32) pg MCHC 29.0 L (32-36) g/dl RDW 17.7 H (11.5-14.0) % Plt Count 269 (150-450) K/mm3 MPV 12.2 H (7.5-11.0) fl Segmented Neutrophils 94 H (36.0-66.0) % Band Neutrophils 1 (0.0-2.0) % Lymphocytes (Manual) 2 L (24-44) % Monocytes (Manual) 2 (0.0-12.0) % Basophils (Manual) 1 (0.0-1.0) % Hypersegmented Polys 1+ Toxic Granulation 1+ Platelet Estimate NORMAL (NORMAL) RBC Morphology ABNORMAL Polychromasia 1+ Poikilocytosis 1+ Anisocytosis 2+ Multi-Disciplinary Progress Notes: Multi-Disciplinary Progress Notes 06/05/20 14:21 Case Management Note by Raissa Garsia DISCHARGE PLAN REVIEWED, PT IS ALERT/PLEASANT/COMMUNICATIVE. DENIES NEEDS FOR DISCHARGE. REPORTS THAT HER DAUGHTER FROM [place] IS IN TOWN FOR THE NEXT 2-3 WEEKS TO ASSIST HER WITH NEEDS. REPORTS THAT SHE HAS A CANE/WALKER/WHEELCHAIR THAT SHE USES TO GET AROUND IN HER HOME. HAS A BEDSIDE COMMODE, BUT ONLY USES PRN. REPORTS THAT NORMALLY SHE CAN USE HER BATHROOM WITHOUT DIFFICULTY. SHE DOES NOT DRIVE AND HER SIG OTHER NORMALLY TAKES HER TO 'S APPTS AND ERRANDS. DISCUSSED [facility], BUT PT IS NOT INTERESTED HER DAUGHTER IS IN TOWN AND SHE DOESN'T FEEL THAT SHE WILL NEED IT. ALSO, REPORTS THAT CAROLANN HELM FOLLOWS HER WITH [facility]. Initialized on 06/05/20 14:21 - END OF NOTE 06/05/20 11:50 (created 06/05/20 12:13) Case Management Note by Raissa Garsia DR. ROUNDED AND EVALUATED, PLAN FOR SURGICAL CONSULT FOR GI BLEED - EGD. PT'S BLOOD THINNERS ARE ON HOLD. MULTIPLE BRUISES NOTED TO EXTREMITIES. DR. BIRMINGHAM DISCUSSED DX AND PLAN OF CARE. PT VERBALIZED UNDERSTANDING OF ALL INFORMATION, AGREEABLE TO PLAN. Initialized on 06/05/20 12:13 - END OF NOTE Assessment/Plan (1) Hematemesis Current Visit: Yes Status: Acute Qualifiers: Nausea presence: with nausea Qualified Code(s): K92.0 - Hematemesis Assessment & Plan: Last Vital Signs Temp 98.0 F 06/06/20 07:35 Pulse 80 06/06/20 07:35 Resp 16 06/06/20 07:35 BP 149/63 06/06/20 07:35 Pulse Ox 95 06/06/20 07:35 Allergies venom-honey bee [bee venom (honey bee)] Allergy (Intermediate, Verified 06/03/20 04:45) colchicine Allergy (Mild, Verified 06/03/20 04:45) Hives Latex, Natural Rubber Allergy (Mild, Verified 06/03/20 04:45) Rash Sulfa (Sulfonamide Antibiotics) Allergy (Mild, Verified 06/03/20 04:45) Hives sulfamethoxazole [From Bactrim] Allergy (Mild, Verified 06/03/20 04:45) Rash trimethoprim [From Bactrim] Allergy (Mild, Verified 06/03/20 04:45) Rash Active Medications Acetaminophen (Tylenol 325 Mg) 650 mg PO Q4H PRN PRN PRN Reason: PAIN AND/OR FEVER Stop: 07/03/20 09:59 Last Admin: 06/05/20 21:03 Dose: 650 mg Documented by: Allopurinol (Zyloprim 300 Mg) 300 mg PO HS JAMEE Stop: 07/03/20 21:59 Last Admin: 06/05/20 20:58 Dose: 300 mg Documented by: Docusate Sodium (Colace 100 Mg) 100 mg PO DAILY PRN PRN PRN Reason: CONSTIPATION Stop: 07/03/20 10:50 Ergocalciferol (Vitamin D2) 50,000 unit PO Mo JAMEE Stop: 07/05/20 09:59 Last Admin: 06/05/20 10:23 Dose: 50,000 unit Documented by: Famotidine (Pepcid 20 Mg) 20 mg PO BID JAMEE Stop: 07/03/20 10:59 Last Admin: 06/05/20 20:58 Dose: 20 mg Documented by: Fluticasone Propionate (Flonase Nasal) 16 gm NS BIDPRN PRN PRN Reason: ALLERGIES Stop: 07/03/20 10:50 Pantoprazole Sodium 80 mg/ (Sodium Chloride) 500 mls @ 50 mls/hr IV .Q10H JAMEE Stop: 07/03/20 07:44 Last Admin: 06/06/20 03:42 Dose: 50 mls/hr, 50 mls/hr Documented by: Sodium Chloride (Sodium Chloride 0.9% 500 Ml) 500 mls @ 50 mls/hr IV .Q10H [facility] Stop: 07/05/20 12:59 Last Admin: 06/05/20 12:54 Dose: 50 mls/hr Documented by: Irbesartan (Avapro 150 Mg) 150 mg PO DAILY [facility] Stop: 07/03/20 10:59 Last Admin: 06/05/20 10:23 Dose: 150 mg Documented by: Levothyroxine Sodium (Synthroid 25 Mcg) 25 mcg PO DAILY JAMEE Stop: 07/03/20 10:59 Last Admin: 06/05/20 10:22 Dose: 25 mcg Documented by: Loperamide HCl (Imodium 2 Mg) 2 mg PO PRN PRN PRN Reason: DIARRHEA Stop: 07/04/20 13:24 Last Admin: 06/04/20 14:12 Dose: 2 mg Documented by: Metoprolol Succinate (Toprol Xl 50 Mg) 50 mg PO DAILY [facility] Stop: 07/03/20 10:59 Last Admin: 06/05/20 10:23 Dose: 50 mg Documented by: Miscellaneous Information (Medication On Hold) 1 misc MC DAILY [facility] Stop: 07/06/20 09:59 Nitroglycerin (Nitrostat 0.4 Mg Tablet) 0.4 mg SL Q5MIN PRN MR X 3 PRN PRN Reason: CHEST PAIN Stop: 07/03/20 10:50 Ondansetron HCl (Zofran 4 Mg/2 Ml Vial) 4 mg IV Q6H PRN PRN PRN Reason: NAUSEA/VOMITING Stop: 07/03/20 09:59 Last Admin: 06/05/20 21:03 Dose: 4 mg Documented by: Simvastatin (Zocor 20mg) 40 mg PO HS JAMEE Stop: 07/03/20 21:59 Last Admin: 06/05/20 20:58 Dose: 40 mg Documented by: Intake & Output 06/05/20 06/06/20 11:59 11:59 Intake Total 1522 780 Output Total 850 950 Balance 672 -170 Weight 131.6 kg 134.1 kg Orders 06/05/20 13:00 NaCl 0.9% 500 ml [Sodium Chloride 0.9% 500 ML] 500 ml IV 50 mls/hr 06/05/20 13:26 Surgical Pathology Routine Lab Tests 06/06/20 04:50 WBC 5.3 RBC 3.05 L Hgb 8.6 L Hct 29.7 L MCV 97.4 MCH 28.2 MCHC 29.0 L RDW 17.7 H Plt Count 269 MPV 12.2 H Segmented Neutrophils 94 H Band Neutrophils 1 Lymphocytes (Manual) 2 L Monocytes (Manual) 2 Basophils (Manual) 1 Hypersegmented Polys 1+ Toxic Granulation 1+ Platelet Estimate NORMAL RBC Morphology ABNORMAL Polychromasia 1+ Poikilocytosis 1+ Anisocytosis 2+ Code(s): K92.0 - HEMATEMESIS (2) Chest pain Current Visit: Yes Status: Acute Qualifiers: Chest pain type: unspecified Qualified Code(s): R07.9 - Chest pain, unspecified Code(s): R07.9 - CHEST PAIN, UNSPECIFIED (3) [id number] kidney injury Current Visit: No Status: Acute Qualifiers: Chronic kidney disease stage: stage 3 (moderate) Code(s): N17.9 - ACUTE KIDNEY FAILURE, UNSPECIFIED; N18.9 - CHRONIC KIDNEY DISEASE, UNSPECIFIED
--- NOTE | 2020-06-06 08:24 | PCM.DS ---
Discharge Summary Date of Admission: 06/04/20 10:30 Admitting Physician: PAULO DELONG Consults: Consults on Case 06/05/20 11:50 Consult Surgery ROUTINE Primary Care Provider: KALPANA BIRMINGHAMYESH Allergies Allergies venom-honey bee [bee venom (honey bee)] Allergy (Intermediate, Verified 06/03/20 04:45) colchicine Allergy (Mild, Verified 06/03/20 04:45) Hives Latex, Natural Rubber Allergy (Mild, Verified 06/03/20 04:45) Rash Sulfa (Sulfonamide Antibiotics) Allergy (Mild, Verified 06/03/20 04:45) Hives sulfamethoxazole [From Bactrim] Allergy (Mild, Verified 06/03/20 04:45) Rash trimethoprim [From Bactrim] Allergy (Mild, Verified 06/03/20 04:45) Rash Hospital Summary - Hospital Course Hospital Course: Chief Complaint Diagnosis ANEMIA, GI BLEED Allergies Allergy/AdvReac Type Severity Reaction Status Date / Time venom-honey bee Allergy Intermediate Verified 06/03/20 04:45 [bee venom (honey bee)] colchicine Allergy Mild Hives Verified 06/03/20 04:45 Latex, Natural Rubber Allergy Mild Rash Verified 06/03/20 04:45 Sulfa (Sulfonamide Allergy Mild Hives Verified 06/03/20 04:45 Antibiotics) sulfamethoxazole Allergy Mild Rash Verified 06/03/20 04:45 [From Bactrim] trimethoprim [From Bactrim] Allergy Mild Rash Verified 06/03/20 04:45 Vital Signs (Last 24 hours) Temp Pulse Resp BP Pulse Ox 06/06/20 07:35 98.0 F 80 16 149/63 95 06/06/20 07:00 89 16 94 L 06/06/20 04:00 98.3 F 84 20 140/64 96 06/05/20 23:53 97.9 F 78 19 117/55 94 L 06/05/20 20:00 97.6 F 79 20 137/56 97 06/05/20 18:43 96 06/05/20 16:00 97.9 F 99 H 20 117/59 94 L 06/05/20 12:37 98.2 F 133 H 20 130/52 94 L 06/05/20 11:58 98.2 F 133 H 20 130/52 94 L Home Medications Medication Instructions Recorded Confirmed Last Taken Type Apixaban [Eliquis] 2.5 mg PO BID 06/03/20 06/03/20 06/02/20 History Current Medications Generic Name Dose Route Start Last Admin Trade Name Freq PRN Reason Stop Dose Admin Acetaminophen 650 mg 06/03/20 10:00 06/05/20 21:03 Tylenol 325 Mg PO 07/03/20 09:59 650 mg Q4H PRN PRN Administration PAIN AND/OR FEVER Allopurinol 300 mg 06/03/20 22:00 06/05/20 20:58 Zyloprim 300 Mg PO 07/03/20 21:59 300 mg HS JAMEE Administration Docusate Sodium 100 mg 06/03/20 10:51 Colace 100 Mg PO 07/03/20 10:50 DAILY PRN PRN CONSTIPATION Ergocalciferol 50,000 unit 06/05/20 10:00 06/05/20 10:23 Vitamin D2 PO 07/05/20 09:59 50,000 unit Mo JAMEE Administration Famotidine 20 mg 06/03/20 11:00 06/05/20 20:58 Pepcid 20 Mg PO 07/03/20 10:59 20 mg BID JAMEE Administration Fluticasone Propionate 16 gm 06/03/20 10:51 Flonase Nasal NS 07/03/20 10:50 BIDPRN PRN ALLERGIES Pantoprazole Sodium 80 mg/ 500 mls @ 50 mls/hr 06/03/20 07:45 06/06/20 03:42 Sodium Chloride IV 07/03/20 07:44 50 mls/hr .Q10H JAMEE 50 mls/hr Administration Sodium Chloride 500 mls @ 50 mls/hr 06/05/20 13:00 06/05/20 12:54 Sodium Chloride 0.9% 500 Ml IV 07/05/20 12:59 50 mls/hr .Q10H JAMEE Administration Irbesartan 150 mg 06/03/20 11:00 06/05/20 10:23 Avapro 150 Mg PO 07/03/20 10:59 150 mg DAILY JAMEE Administration Levothyroxine Sodium 25 mcg 06/03/20 11:00 06/05/20 10:22 Synthroid 25 Mcg PO 07/03/20 10:59 25 mcg DAILY JAMEE Administration Loperamide HCl 2 mg 06/04/20 13:25 06/04/20 14:12 Imodium 2 Mg PO 07/04/20 13:24 2 mg PRN PRN Administration DIARRHEA Metoprolol Succinate 50 mg 06/03/20 11:00 06/05/20 10:23 Toprol Xl 50 Mg PO 07/03/20 10:59 50 mg DAILY JAMEE Administration Miscellaneous Information 1 [facility] [place]/06/20 10:00 Medication On Hold 07/06/20 09:59 DAILY JAMEE Nitroglycerin 0.4 mg 06/03/20 10:51 Nitrostat 0.4 Mg Tablet SL 07/03/20 10:50 Q5MIN PRN MR X 3 PRN CHEST PAIN Ondansetron HCl 4 mg 06/03/20 10:00 06/05/20 21:03 Zofran 4 Mg/2 Ml Vial IV 07/03/20 09:59 4 mg Q6H PRN PRN Administration NAUSEA/VOMITING Simvastatin 40 mg 06/03/20 22:00 06/05/20 20:58 Zocor 20mg PO 07/03/20 21:59 40 mg HS JAMEE Administration Discontinued Medications Generic Name Dose Route Start Last Admin Trade Name Freq PRN Reason Stop Dose Admin Albuterol/Ipratropium 3 ml 06/03/20 13:00 Duoneb 0.5-3 Mg/3 Ml Neb IH 07/03/20 12:59 Q6HRT JAMEE Sodium Chloride Confirm 06/03/20 07:47 Sodium Chloride 0.9% 500 Ml Administered 06/03/20 07:48 Dose 500 mls @ ud IV .STK-MED ONE Sodium Chloride Confirm 06/04/20 17:49 Sodium Chloride 0.9% 500 Ml Administered 06/04/20 17:50 Dose 500 mls @ ud IV .STK-MED ONE Sodium Chloride Confirm 06/05/20 12:45 Sodium Chloride 0.9% 500 Ml Administered 06/05/20 12:46 Dose 500 mls @ ud IV .STK-MED ONE Pantoprazole Sodium 40 mg 06/03/20 05:07 06/03/20 05:13 Protonix 40 Mg Iv IV 06/03/20 05:08 40 mg STAT ONE Administration Pantoprazole Sodium Confirm 06/03/20 05:10 Protonix 40 Mg Iv Administered 06/03/20 05:11 Dose 40 mg IV .STK-MED ONE Pantoprazole Sodium Confirm 06/03/20 07:47 Protonix 40 Mg Iv Administered 06/03/20 07:48 Dose 40 mg IV .STK-MED ONE Propofol Confirm 06/05/20 13:30 Diprivan 200 Mg/20 Ml Administered 06/05/20 13:31 Dose 200 mg IV .STK-MED ONE Fluticasone/Salmeterol 2 puff 06/03/20 11:00 Advair Hfa Common Canister* IH 07/03/20 10:59 DAILY PRN PRN SHORTNESS OF BREATH/WHEEZING Intake & Output (Last 24 hours) 06/03/20 06/04/20 06/05/20 06/06/20 11:59 11:59 11:59 11:59 Intake Total 3092 1522 780 Output Total 850 950 Balance 3092 672 -170 Weight 129.8 kg 129.6 kg 131.6 kg 134.1 kg Laboratory Results (Last 24 hours) 06/06/20 04:50 WBC 5.3 RBC 3.05 L Hgb 8.6 L Hct 29.7 L MCV 97.4 MCH 28.2 MCHC 29.0 L RDW 17.7 H Plt Count 269 MPV 12.2 H Segmented Neutrophils 94 H Band Neutrophils 1 Lymphocytes (Manual) 2 L Monocytes (Manual) 2 Basophils (Manual) 1 Hypersegmented Polys 1+ Toxic Granulation 1+ Platelet Estimate NORMAL RBC Morphology ABNORMAL Polychromasia 1+ Poikilocytosis 1+ Anisocytosis 2+ Orders (Last 24 hours) Category Date Time Status Call Orders ROUTINE Care 06/05/20 14:10 Completed Consent,Obtain ROUTINE Care 06/05/20 12:12 Completed Nursing [Miscellaneous Nursing Order] ROUTINE Care 06/05/20 14:11 Active Consult Surgery ROUTINE Cons 06/05/20 11:50 Completed House Regular Diet Diet 06/05/20 Dinner Active CBC W DIFF AM.LAB Lab 06/06/20 04:50 Completed Manual Differential NC Routine Lab 06/06/20 04:50 Completed Surgical Pathology Routine Lab 06/05/20 13:26 Received Ergocalciferol (Vitamin D2) [Vitamin D2] Med 06/05/20 10:00 Active 50,000 unit PO Mo Medication Intervention [Medication On Hold] Med 06/06/20 10:00 Active 1 misc MC DAILY NaCl 0.9% 500 ml [Sodium Chloride 0.9% 500 ML] 500 ml Med 06/05/20 13:00 Active IV 50 mls/hr NaCl 0.9% 500 ml [Sodium Chloride 0.9% 500 ML] 500 ml Med 06/05/20 12:45 Discontinued IV UD Propofol 200 mg/20 ml [Diprivan 200 mg/20 ml] Med 06/05/20 13:30 Discontinued 200 mg IV .STK-MED ONE Patient Care Notes (Last 24 hours) 06/05/20 15:33 Nursing Note by Bianca Scruggs Dr. is okay with holding thinners for 7 days, per Dr. Garcia order Initialized on 06/05/20 15:33 - END OF NOTE 06/05/20 14:53 Nursing Note by Bianca Scruggs called Dr. Birmingham's office and left message with the nurse of results from EGD Initialized on 06/05/20 14:53 - END OF NOTE 06/05/20 14:21 Case Management Note by Raissa Garsia DISCHARGE PLAN REVIEWED, PT IS ALERT/PLEASANT/COMMUNICATIVE. DENIES NEEDS FOR DISCHARGE. REPORTS THAT HER DAUGHTER FROM [place] IS IN TOWN FOR THE NEXT 2-3 WEEKS TO ASSIST HER WITH NEEDS. REPORTS THAT SHE HAS A CANE/WALKER/WHEELCHAIR THAT SHE USES TO GET AROUND IN HER HOME. HAS A BEDSIDE COMMODE, BUT ONLY USES PRN. REPORTS THAT NORMALLY SHE CAN USE HER BATHROOM WITHOUT DIFFICULTY. SHE DOES NOT DRIVE AND HER SIG OTHER NORMALLY TAKES HER TO 'S APPTS AND ERRANDS. DISCUSSED [facility], BUT PT IS NOT INTERESTED HER DAUGHTER IS IN TOWN AND SHE DOESN'T FEEL THAT SHE WILL NEED IT. ALSO, REPORTS THAT CAROLANN HELM FOLLOWS HER WITH [facility]. Initialized on 06/05/20 14:21 - END OF NOTE 06/05/20 11:50 (created 06/05/20 12:13) Case Management Note by Raissa Garsia DR. ROUNDED AND EVALUATED, PLAN FOR SURGICAL CONSULT FOR GI BLEED - EGD. PT'S BLOOD THINNERS ARE ON HOLD. MULTIPLE BRUISES NOTED TO EXTREMITIES. DR. BIRMINGHAM DISCUSSED DX AND PLAN OF CARE. PT VERBALIZED UNDERSTANDING OF ALL INFORMATION, AGREEABLE TO PLAN. Initialized on 06/05/20 12:13 - END OF NOTE - Vitals & Intake/Output Vital Signs: Vital Signs Temperature 98.0 F 06/06/20 07:35 Pulse Rate 80 06/06/20 07:35 Respiratory Rate 16 06/06/20 07:35 Blood Pressure 149/63 06/06/20 07:35 O2 Sat by Pulse Oximetry 95 06/06/20 07:35 Intake & Output: Intake & Output 06/03/20 06/04/20 06/05/20 06/06/20 11:59 11:59 11:59 11:59 Intake Total 3092 1522 780 Output Total 850 950 Balance 3092 672 -170 Weight 129.8 kg 129.6 kg 131.6 kg 134.1 kg - Lab Result Diagrams: 06/06/20 04:50 06/04/20 05:50 Lab Results-Last 24 Hrs: Lab Results-Last 24 Hours 06/06/20 Range/Units 04:50 WBC 5.3 (4.0-10.5) K/mm3 RBC 3.05 L (4.1-5.4) M/mm3 Hgb 8.6 L (12.0-16.0) gm/dl Hct 29.7 L (35-47) % MCV 97.4 (78-100) fl MCH 28.2 (26-32) pg MCHC 29.0 L (32-36) g/dl RDW 17.7 H (11.5-14.0) % Plt Count 269 (150-450) K/mm3 MPV 12.2 H (7.5-11.0) fl Segmented Neutrophils 94 H (36.0-66.0) % Band Neutrophils 1 (0.0-2.0) % Lymphocytes (Manual) 2 L (24-44) % Monocytes (Manual) 2 (0.0-12.0) % Basophils (Manual) 1 (0.0-1.0) % Hypersegmented Polys 1+ Toxic Granulation 1+ Platelet Estimate NORMAL (NORMAL) RBC Morphology ABNORMAL Polychromasia 1+ Poikilocytosis 1+ Anisocytosis 2+ - Procedures and Test Procedures and Tests throughout Hospitalization: Therapy Orders & Screens 06/03/20 11:33 RT Screen per Nursing Assess ONCE Comment: Protocol Order Physician Instructions: Greater than 3 points order RT Admission Screen Reason For Exam: Triggered on Admission Diagnosis: Chest pain rule out [place] Diagnosis: Chest pain rule out [place] Pneumonia: Yes Home O2: No Asthma: Yes CHF: Yes Home CPAP/BIPAP: Yes Home Nebs/MDI: Yes Total Points: 20 06/03/20 12:55 Respiratory Therapy Assessment DAILY Comment: Diagnosis: Chest pain rule out [place] Discharge Exam General Appearance: no apparent distress, alert Neurologic Exam: alert, oriented x 3, cooperative, normal mood/affect, nml cerebellar function, sensation nml, No motor deficits Eye Exam: PERRL, EOMI, eyes nml inspection Ears, Nose, Throat Exam: normal ENT inspection, pharynx normal, moist mucous membranes Neck Exam: normal inspection, non-tender, supple, full range of motion Respiratory Exam: normal breath sounds, lungs clear, No respiratory distress Cardiovascular Exam: regular rate/rhythm, normal heart sounds Gastrointestinal/Abdomen Exam: soft, No tenderness, No mass Pelvic Exam: deferred Rectal Exam: deferred Back Exam: normal inspection, normal range of motion, No CVA tenderness, No vertebral tenderness Extremity Exam: normal inspection, normal range of motion Skin Exam: normal color, warm, dry, ecchymosis Final Diagnosis/Problem List - Final Discharge Diagnosis/Problem (1) Hematemesis Current Visit: Yes Status: Resolved Code(s): K92.0 - HEMATEMESIS (2) Chest pain Current Visit: Yes Status: Resolved Code(s): R07.9 - CHEST PAIN, UNSPECIFIED (3) [id number] kidney injury Current Visit: No Status: Chronic Priority: High Code(s): N17.9 - ACUTE KI DNEY FAILURE, UNSPECIFIED; N18.9 - CHRONIC KIDNEY DISEASE, UNSPECIFIED - Discharge Disposition: Home, Self-Care Condition: Stable Prescriptions: No Action Simvastatin 40 mg [Zocor 40 mg] 40 mg PO HS Metoprolol Succinate 50 mg [Toprol Xl 50 MG] 50 mg PO DAILY Nitroglycerin 0.4 mg Tablet [Nitrostat 0.4 MG Tablet] 0.4 mg SL Q5MIN PRN MR X 3 PRN PRN Reason: Chest Pain Allopurinol 300 mg [Zyloprim 300 mg] 300 mg PO HS Fluticasone Propionate [Flonase NASAL] 16 gm NS BIDPRN PRN PRN Reason: Allergies Irbesartan 150 mg PO DAILY predniSONE [Prednisone] 5 mg PO DAILY Ergocalciferol (Vitamin D2) [Vitamin D] 50,000 unit PO UD Famotidine 20 mg [Pepcid 20 MG] 20 mg PO BID Levothyroxine Sodium 25 mcg PO DAILY Furosemide [Lasix] 40 mg PO BID PRN Fluticasone/Salmeterol [Advair 100-50 Diskus] 1 each IH DAILY PRN PRN PRN Reason: Shortness Of Breath/Wheezing Aspirin 325 mg PO DAILY Docusate Sodium 100 mg [Colace 100 MG] 100 mg PO DAILY PRN PRN PRN Reason: Constipation Loperamide HCl 2 mg [Imodium 2 mg] 2 mg PO PRN PRN #12 capsule PRN Reason: Diarrhea Apixaban [Eliquis] 2.5 mg PO BID Follow up with: DAMIR GARCIA [COURTESY STAFF] - (1 WEEK FOLLOW UP IF RELEASED)
[2020-06-06] MEDS: Avapro 150 MG PO SCH (09:07)
[2020-06-06] MEDS: SYNTHROID 25 MCG PO SCH (09:08)
[2020-06-06] MEDS: Toprol Xl 50 MG PO SCH (09:08)
[2020-06-06] MEDS: Pepcid 20 MG PO SCH (09:08)
[2020-06-06] MEDS ORDERED: MEDICATION ON HOLD MC SCH (10:00)
--- NOTE | 2020-06-06 10:14 | CONS ---
CONSULT DATE: 06/05/2020 The patient is being seen for Dr. Hilario who is weight control engineer for our group today and asked that I see the patient while I was doing some outpatient procedures. HISTORY: This 80 year old female had some black stools over a few days. She was admitted with some heartburn and hematemesis. She had cardiac etiology ruled out. She has history of atrial fibrillation in the past. She had been on Eliquis prior to this. She had some nosebleeds in the past. PAST MEDICAL HISTORY: Heart failure. Coronary artery disease. Asthma. Chronic obstructive pulmonary disease. Hypothyroidism. Obesity. Reflux. Anxiety. Depression. PAST SURGICAL HISTORY: Cholecystectomy. Hysterectomy. Bilateral knee surgery. Ovarian cyst. Cardiac cath. Appendectomy, HOME MEDICATIONS: Prior to admission she was on metoprolol, nitroglycerin PRN, prednisone, Simvastatin, Allopurinol, aspirin, docusate sodium, vitamin D, famotidine, fluconazole nasal spray, Advair inhaler, Lasix PRN for some leg swelling, Irbesartan, levothyroxine, PRN Imodium. She was on Eliquis which has been held since 06/02/2020 reportedly. ALLERGIES: SULFA. BACTRIM. COLCHICINE. LATEX. BEE VENOM. FAMILY HISTORY: Negative in regards to this problem. SOCIAL HISTORY: Former smoker, no current alcohol abuse. REVIEW OF SYSTEMS: Fourteen systems reviewed. She wears glasses. Otherwise pertinent for multiple medical problems noted above. No chest pain currently. She has history of atrial fibrillation in the past. Sleep apnea, obesity, frequent urinary tract infections and fatigue. Otherwise pertinent for as noted above. PHYSICAL EXAMINATION: GENERAL: A chronically ill female. HEENT: Sclera nonicteric. She wears glasses. Oral mucous membranes moist. NECK: No JVD. CHEST: Equal excursion, nonlabored breathing. ABDOMEN: Obese, nondistended. EXTREMITIES: Trace edema. NEURO: Alert, moving extremities symmetrically. PSYCH: Appropriate mood and affect. IMPRESSION: History of some black stools and melena, hematemesis and heartburn in the past of unclear etiology. She has been off of her blood thinners for three or four days. I feel she is a candidate for EGD, possible biopsy to evaluate for gastritis, peptic ulcer disease, esophagitis or other etiology. Risks and benefits explained in detail but not limited to bleeding or infection, risk of bowel injury or perforation possibly requiring open procedure, risk of ongoing morbidity/mortality but not limited to and consent obtained, will proceed with EGD possible biopsy when OR time available. Again, this patient was seen for Dr. Ej Hilario who is weight control engineer for our group today. He is tied up in [place] all day and will add to the schedule to do down here.
--- NOTE | 2020-06-06 11:34 | OP ---
SURGERY DATE/TIME: 06/05/2020 1318 PREOPERATIVE DIAGNOSIS: History of anemia, question of melena, question of GI bleed, prior history of anticoagulation. POSTOPERATIVE DIAGNOSES: 1) Mild erosive gastritis. No active bleeding. 2) Small hiatal hernia. PROCEDURES: 1) EGD with cold biopsy of the antrum for Helicobacter pylori. 2) Cold biopsy distal esophagus to evaluate for normal variation of gastroesophageal junction versus very short segment of distal gastroesophagitis. SURGEON: Dr. Yobany Tovar. ANESTHESIA: MAC. ESTIMATED BLOOD LOSS: Minimal. INDICATIONS: As noted above. Risks and benefits explained in detail and not limited to and consent obtained. DESCRIPTION OF PROCEDURE AND FINDINGS: The patient is taken to the endoscopy room. MAC anesthesia induced. After official time out and no disagreement with planned procedure, a bite block positioned. Video gastroscope easily passed down the esophagus through the patent pylorus to the junction of the second and third portion of the duodenum. In the third, second and first portion of the duodenum, no signs of any fresh or old blood and no signs of any ricco ulcers. The scope pulled back into the stomach. She did have some mild erosive gastritis with some very superficial erosions but no evidence of any ulcers. No fresh or old blood. On retroflex she had small hiatal hernia 1.5 to 2 cm. The scope was straightened. Again, no signs of any obvious masses. No signs of any ricco ulcers or any active bleeding currently. The scope pulled back to gastroesophageal junction about 37 cm. Z-line was fairly crisp. There were just a couple tiny fingerlettes right next to gastroesophageal junction. Cold biopsy is taken for very short segment of distal gastroesophagitis versus normal variation of the gastroesophageal junction. Otherwise no signs of any significant erosions. No signs of any obvious Beyer's. No signs of any ricco masses. No signs of any active bleeding in the esophagus at this time. The scope is withdrawn. The patient tolerated the procedure well. There were no immediate complications. There was no obvious active bleeding source in the upper GI tract along the endoscopy. If her hemoglobin is stable, will decide whether to attempt to resume her blood thinners. It probably would not hurt to have a colonoscopy at some point. She needs rate control of her heart at this point. Her rate has been in the 120's. If she remains in the hospital a few more days could consider doing a colonoscopy with better bowel prep later in the week. Remain off her blood thinners. Otherwise she can follow up in our office to have an outpatient colonoscopy set up eventually. Other options are to consider a bleeding scan this admission. No emergent surgery at this point. She would probably benefit from a colonoscopy at some point.
== END 2020-06-06 11:22 | disposition home or self-care (01) | DRG 378 ==
LOC: ED 04:24 → MED SURG 09:31 → OBSVTOIN 06-04 10:30
PROVIDERS: ADMIT Family Medicine; ATTEND General Practice
PROC: 0DB38ZX Excision of Lower Esophagus, Via Natural or Artificial Opening Endoscopic, Diagnostic (ICD-10-PCS; principal; 2020-06-05)
PROC: 0DB68ZX Excision of Stomach, Via Natural or Artificial Opening Endoscopic, Diagnostic (ICD-10-PCS; 2020-06-05)
DX: K92.0 Hematemesis (principal); N17.9 Acute kidney failure, unspecified; R07.9 Chest pain, unspecified; I13.10 Hypertensive heart and chronic kidney disease without heart failure, with stage 1 through stage 4 chronic kidney disease, or unspecified chronic kidney disease; N18.9 Chronic kidney disease, unspecified; M79.2 Neuralgia and neuritis, unspecified; Z79.899 Other long term (current) drug therapy; E03.9 Hypothyroidism, unspecified; J44.9 Chronic obstructive pulmonary disease, unspecified; I48.91 Unspecified atrial fibrillation; Z79.01 Long term (current) use of anticoagulants; K29.70 Gastritis, unspecified, without bleeding; K44.9 Diaphragmatic hernia without obstruction or gangrene
CPT/HCPCS: 36000; 36415; 36430; 43239; 80053; 83880; 84484; 85014; 85018; 85025; 85027; 86850; 86900; 86901; 86922; 93005; 93041; 93268; 94760; 96365; 96374; 99285; G0328; G0378; U0003; 82274; 88312; 99100; J2405; J2704; A9270-GY

== ENCOUNTER 2021-03-08 14:36 | Inpatient (IN) | payer MEDICARE ==
--- NOTE | 2021-03-08 14:38 | ERPHSYRPT ---
- History of Present Illness Time Seen by Provider: 03/08/21 14:38 Source: patient Exam Limitations: no limitations Physician History: This is a 80-year-old morbidly obese white female patient of Dr. Matta and presents with 4-day history of generalized abdominal pain. There was 1 episode of vomiting yesterday and one episode of vomiting today. In addition, there was one episode of diarrheal stool yesterday and one episode of diarrheal stool today. Patient did have an appointment to see her primary care physician but was unable to do so because the doctor was out of the office. That appointment has been rescheduled. Patient has a history of migraine headaches, obesity, hypertension, gastroesophageal reflux disease, hypothyroidism, anxiety, DJD, CHF and elevated cholesterol. She denies chest pain. She does not have shortness of breath. Timing/Duration: day(s) (4) Severity: mild Associated Symptoms: nausea, vomiting, abdominal pain, loss of appetite, weakness, No shortness of breath, No chest pain Allergies/Adverse Reactions: venom-honey bee [bee venom (honey bee)] Allergy (Intermediate, Verified 03/08/21 14:50) colchicine Allergy (Mild, Verified 03/08/21 14:50) Hives Latex, Natural Rubber Allergy (Mild, Verified 03/08/21 14:50) Rash Sulfa (Sulfonamide Antibiotics) Allergy (Mild, Verified 03/08/21 14:50) Hives sulfamethoxazole [From Bactrim] Allergy (Mild, Verified 03/08/21 14:50) Rash trimethoprim [From Bactrim] Allergy (Mild, Verified 03/08/21 14:50) Rash Home Medications: Allopurinol 300 mg [Zyloprim 300 mg] 300 mg PO HS 12/08/15 [History] Metoprolol Succinate 50 mg [Toprol Xl 50 MG] 50 mg PO DAILY 12/08/15 [History] Nitroglycerin 0.4 mg Tablet [Nitrostat 0.4 MG Tablet] 0.4 mg SL Q5MIN PRN MR X 3 PRN 12/08/15 [History] Simvastatin 40 mg [Zocor 40 mg] 40 mg PO HS 12/08/15 [History] Fluticasone Propionate [Flonase NASAL] 16 gm NS BID 01/21/16 [History] Ergocalciferol (Vitamin D2) [Vitamin D] 50,000 unit PO UD 09/01/17 [History] Irbesartan 75 mg PO DAILY 09/01/17 [History] predniSONE [Prednisone] 5 mg PO DAILY 09/01/17 [History] Famotidine 20 mg [Pepcid 20 MG] 20 mg PO BID 09/02/17 [History] Docusate Sodium 100 mg [Colace 100 MG] 100 mg PO BID 06/29/19 [History] Fluticasone/Salmeterol [Advair 100-50 Diskus] 1 each IH DAILY PRN PRN 06/29/19 [History] Furosemide [Lasix] 40 mg PO DAILY 06/29/19 [History] Levothyroxine Sodium 50 mcg PO DAILY 06/29/19 [History] Apixaban [Eliquis] 2.5 mg PO BID 03/08/21 [History] Benzonatate [Tessalon Perle] 100 mg PO TID PRN PRN 03/08/21 [History] Loperamide HCl 2 mg [Imodium 2 mg] 2 mg PO Q4H PRN PRN 03/08/21 [History] Montelukast Sodium 10 mg [Singulair 10 MG] 10 mg PO DAILY 03/08/21 [History] Non-Formulary Drug [Non-Formulary Item] 100 mcg IH QID 03/08/21 [History] Hx Tetanus, Diphtheria Vaccination/Date Given: Yes Hx Influenza Vaccination/Date Given: Yes Hx Pneumococcal Vaccination/Date Given: Yes Travel Risk - International Travel Have you traveled outside of the country in past 3 weeks: No - Coronavirus Screening Are you exhibiting any of the following symptoms?: Yes Symptoms: Vomiting/Diarrhea Close contact with a COVID-19 positive Pt in past 14-21 Days: No - Vaccine Status Have you recieved a Covid-19 vaccination: Yes - Review of Systems Constitutional: No Symptoms Eyes: No Symptoms Ears, Nose, & Throat: No Symptoms Respiratory: No Symptoms Cardiac: No Symptoms Abdominal/Gastrointestinal: Abdominal Pain, Nausea, Vomiting, Diarrhea, Appetite Changes, No Constipation Genitourinary Symptoms: No Symptoms Musculoskeletal: No Symptoms Skin: No Symptoms Neurological: No Symptoms Psychological: No Symptoms Endocrine: No Symptoms Hematologic/Lymphatic: No Symptoms Immunological/Allergic: No Symptoms All Other Systems: Reviewed and Negative - Past Medical History Pertinent Past Medical History: Yes Neurological History: Migraines ENT History: Cataracts Cardiac History: Angina, Arrhythmia, Congestive Heart Failure, Coronary Artery Disease, High Cholesterol, Hypertension, Peripheral Vascular Disease Respiratory History: Asthma, CHF, COPD, Emphysema, Pneumonia, Other Endocrine Medical History: Hypothyroidism Musculoskeletal History: Degenerative Disk Disease GI Medical History: GERD, Hemorrhoids, Hernia, Polyps History: Other Psycho-Social History: Anxiety, Depression Female Reproductive Disorders: No Pertinent History Other Medical History: RESTRICTIVE LUNG DISEASE, OBESITY, SLEEP APNEA, CHRONIC FATIGUE. frequent UTIs - Past Surgical History Past Surgical History: Yes Neuro Surgical History: No Pertinent History Cardiac: Cardiac Catheterization Respiratory: No Pertinent History Gastrointestinal: Appendectomy, Cholecystectomy Genitourinary: No Pertinent History Musculoskeletal: Orthopedic Surgery Female Surgical History: Hysterectomy Other Surgical History: Bilateral knee surgery. cysts removed from ovaries. - Social History Smoking Status: Former smoker How long have you smoked: 30 years Exposure to second hand smoke: No Drug Use: none Patient Lives Alone: No Significant Family History: no pertinent family hx - Nursing Vital Signs Nursing Vital Signs: Initial Vital Signs Temperature 96.7 F 03/08/21 14:51 Pulse Rate 60 03/08/21 14:51 Respiratory Rate 18 03/08/21 14:51 Blood Pressure 105/59 03/08/21 14:51 O2 Sat by Pulse Oximetry 97 03/08/21 14:51 Pain Scale Pain Intensity 0 - Physical Exam General Appearance: no apparent distress, alert, anxiety, obese Eye Exam: PERRL/EOMI, eyes nml inspection Ears, Nose, Throat Exam: normal ENT inspection, moist mucous membranes Neck Exam: normal inspection, non-tender, supple, full range of motion Respiratory Exam: normal breath sounds, lungs clear, airway intact, No chest tenderness, No respiratory distress Cardiovascular Exam: regular rate/rhythm, normal heart sounds, normal peripheral pulses Gastrointestinal/Abdomen Exam: soft, normal bowel sounds, tenderness (Mild diffuse with palpation), No guarding, No rebound Pelvic Exam: not done Rectal Exam: not done Back Exam: normal inspection, normal range of motion, No CVA tenderness, No vertebral tenderness Extremity Exam: normal inspection, normal range of motion, pelvis stable Neurologic Exam: alert, oriented x 3, cooperative, pay per click strategist II-XII nml as tested, normal mood/affect, nml cerebellar function, nml station & gait, sensation nml Skin Exam: normal color, warm, dry Lymphatic Exam: No adenopathy SpO2 Interpretation: normal O2 Delivery: Room Air - Course Nursing assessment & vital signs reviewed: Yes Ordered Tests: Medication Summary Discontinued Medications Generic Name Dose Route Start Last Admin Trade Name Freq PRN Reason Stop Dose Admin Acetaminophen 650 mg 03/08/21 18:39 03/11/21 09:02 Acetaminophen 325 Mg Tablet PO 04/07/21 18:38 650 mg Q6H PRN PRN Administration PAIN AND/OR FEVER Allopurinol 300 mg 03/08/21 21:16 03/08/21 22:01 Allopurinol 300 Mg Tablet PO 03/08/21 21:17 300 mg HS ONE Administration Apixaban 2.5 mg 03/08/21 21:20 03/08/21 22:01 Apixaban 2.5 Mg Tablet PO 03/08/21 21:21 2.5 mg BID ONE Administration Apixaban 2.5 mg 03/09/21 10:00 03/11/21 08:13 Apixaban 2.5 Mg Tablet PO 04/08/21 09:59 2.5 mg BID JAMEE Administration Benzonatate 100 mg 03/08/21 21:18 Benzonatate 100 Mg Capsule PO 04/07/21 21:17 TID PRN PRN COUGH Bisacodyl 10 mg 03/10/21 08:40 03/10/21 09:45 Bisacodyl 5 Mg Tablet.Ec PO 03/10/21 08:41 10 mg ONCE ONE Administration Docusate Sodium 100 mg 03/09/21 10:00 03/11/21 08:12 Docusate Sodium 100 Mg Capsule PO 04/08/21 09:59 100 mg BID JAMEE Administration Famotidine 20 mg 03/09/21 10:00 03/11/21 08:12 Famotidine 20 Mg Tablet PO 04/08/21 09:59 20 mg BID JAMEE Administration Ferrous Sulfate 325 mg 03/09/21 10:00 03/11/21 08:13 Ferrous Sulfate 325 Mg Tablet PO 04/08/21 09:59 325 mg DAILY JAMEE Administration Fluticasone Propionate 0 gm 03/09/21 10:00 03/11/21 08:11 Fluticasone Propionate 16 Gm Bottle Nasal [place] NS 04/08/21 09:59 16 gm BID JAMEE Administration Heparin Sodium (Beef Lung) 500 units 03/08/21 18:33 Heparin Lock Flush Pf 500 Units/5 Ml Syringe IV 03/08/21 18:34 .STK-MED ONE Heparin Sodium (Beef Lung) 500 units 03/10/21 16:03 03/10/21 16:09 Heparin Lock Flush Pf 500 Units/5 Ml Syringe PICC 04/09/21 16:02 500 units PRN PRN Administration IV PORT FLUSH Sodium Chloride 1,000 mls @ 999 mls/hr 03/08/21 14:55 03/08/21 16:36 Sodium Chloride 0.9% 1000 Ml IV 03/08/21 15:55 Infused .Q1H1M STA Infusion Sodium Chloride Confirm 03/08/21 15:24 Sodium Chloride 0.9% 1000 Ml Administered 03/08/21 15:25 Dose 1,000 mls @ ud .ROUTE .STK-MED ONE Ceftriaxone Sodium/Dextrose 1 g in 50 mls @ 100 mls/hr 03/08/21 16:41 03/08/21 17:36 Rocephin 1 Gm-D5w 50 Ml Bag IV 03/08/21 17:10 Infused STAT STA Infusion Ceftriaxone Sodium/Dextrose Confirm 03/08/21 16:59 Rocephin 1 Gm-D5w 50 Ml Bag Administered 03/08/21 17:00 Dose 1 g in 50 mls @ ud IV .STK-MED ONE Sodium Chloride 1,000 mls @ 75 mls/hr 03/08/21 18:39 03/10/21 01:44 Sodium Chloride 0.9% 1000 Ml IV 04/07/21 18:38 75 mls/hr .[id number] JAMEE Administration Ceftriaxone Sodium/Dextrose 1 g in 50 mls @ 100 mls/hr 03/09/21 10:00 03/11/21 10:07 Rocephin 1 Gm-D5w 50 Ml Bag IV 03/13/21 09:59 100 mls/hr Q24H10 JAMEE Administration Heparin Sodium (Porcine) 1,000 501 mls @ ud 03/08/21 18:33 u/ Sodium Chloride IV 03/08/21 18:34 .STK-MED ONE Irbesartan 75 mg 03/09/21 10:00 03/11/21 08:13 Irbesartan 150 Mg Tablet PO 04/08/21 09:59 75 mg DAILY JAMEE Administration Levothyroxine Sodium 50 mcg 03/09/21 10:00 03/11/21 08:13 Levothyroxine Sodium 50 Mcg Tablet PO 04/08/21 09:59 50 mcg DAILY JAMEE Administration Loperamide HCl 2 mg 03/08/21 21:17 Loperamide Hcl 2 Mg Capsule PO 04/07/21 21:16 Q4H PRN PRN DIARRHEA Magnesium Citrate 296 ml 03/11/21 10:00 03/11/21 10:07 Magnesium Citrate 296 Ml Solution PO 03/11/21 10:01 296 ml 1XONLY ONE Administration Metoprolol Succinate 50 mg 03/09/21 10:00 03/11/21 08:14 Metoprolol Succinate 50 Mg Tablet.Sa PO 04/08/21 09:59 50 mg DAILY JAMEE Administration Nitroglycerin 0.4 mg 03/09/21 08:05 Nitroglycerin 0.4 Mg Tablet Bottle SL 04/08/21 08:04 Q5MIN PRN MR X 3 PRN CHEST PAIN Ondansetron HCl 4 mg 03/08/21 14:55 03/08/21 15:24 Ondansetron Hcl 4 Mg/2 Ml Vial IV 03/08/21 14:56 4 mg STAT ONE Administration Ondansetron HCl Confirm 03/08/21 15:23 Ondansetron Hcl 4 Mg/2 Ml Vial Administered 03/08/21 15:24 Dose 4 mg .ROUTE .STK-MED ONE Ondansetron HCl 4 mg 03/08/21 18:39 Ondansetron Hcl 4 Mg/2 Ml Vial IV 04/07/21 18:38 Q6H PRN PRN NAUSEA/VOMITING Prednisone 5 mg 03/09/21 10:00 03/11/21 08:13 Prednisone 5 Mg Tablet PO 04/08/21 09:59 5 mg DAILY JAMEE Administration Fluticasone/Salmeterol 2 puff 03/09/21 08:11 Fluticasone/Salmeterol 60 Puff Common Canister IH 04/08/21 08:10 DAILY PRN PRN SHORTNESS OF BREATH/WHEEZING Simvastatin 40 mg 03/08/21 21:16 03/08/21 22:01 Simvastatin 20 Mg Tablet PO 03/08/21 21:17 40 mg HS ONE Administration Lab/Rad Data: Laboratory Result Diagrams 03/08/21 15:27 03/08/21 15:27 Laboratory Results 03/08/21 03/08/21 03/08/21 Range/Units 17:28 17:10 17:10 WBC (4.0-10.5) K/mm3 RBC (4.1-5.4) M/mm3 Hgb (12.0-16.0) gm/dl Hct (35-47) % MCV (78-100) fl MCH (26-32) pg MCHC (32-36) g/dl RDW (11.5-14.0) % Plt Count (150-450) K/mm3 MPV (7.5-11.0) fl Segmented Neutrophils (36.0-66.0) % Lymphocytes (Manual) (24-44) % Monocytes (Manual) (0.0-12.0) % Eosinophils (Manual) (0.00-3.0) % Hypochromia Platelet Estimate (NORMAL) RBC Morphology Anisocytosis Microcytosis Sodium (137-145) mmol/L Potassium (3.5-5.1) mmol/L Chloride (98-107) mmol/L Carbon Dioxide (22-30) mmol/L Anion Gap (5-15) MEQ/L BUN (7-17) mg/dL Creatinine (0.52-1.04) mg/dL Estimated GFR ML/MIN Glucose (74-106) mg/dL Lactic Acid 1.5 (0.4-2.0) Calcium (8.4-10.2) mg/dL Total Bilirubin (0.2-1.3) mg/dL AST (14-36) U/L ALT (0-35) U/L Alkaline Phosphatase (38-126) U/L Serum Total Protein (6.3-8.2) g/dL Albumin (3.5-5.0) g/dL Amylase (30-110) U/L Lipase (23-300) U/L Urine Color (YELLOW) Urine Appearance (CLEAR) Urine pH (5-6) Ur Specific Gray (1.005-1.025) Urine Protein (Negative) Urine Ketones (NEGATIVE) Urine Blood (0-5) Evaristo/ul Urine Nitrite (NEGATIVE) Urine Bilirubin (NEGATIVE) Urine Urobilinogen (0-1) mg/dL Ur Leukocyte Esterase (NEGATIVE) Urine WBC (Auto) (0-5) /HPF Urine RBC (Auto) (0-2) /HPF U Hyaline Cast (Auto) (0-2) /LPF U Epithel Cells (Auto) (FEW) /HPF Urine Bacteria (Auto) (NEGATIVE) /HPF Urine Mucus (Auto) (NEGATIVE) /HPF Urine Culture Reflexed (NO) Urine Glucose (NEGATIVE) mg/dL SARS-CoV-2 (PCR) NEGATIVE (NEGATIVE) ABO Group A Rh Factor POSITIVE Antibody Screen NEGATIVE (NEGATIVE) 03/08/21 03/08/21 03/08/21 Range/Units 16:05 15:27 15:27 WBC (4.0-10.5) K/mm3 RBC (4.1-5.4) M/mm3 Hgb (12.0-16.0) gm/dl Hct (35-47) % MCV (78-100) fl MCH (26-32) pg MCHC (32-36) g/dl RDW (11.5-14.0) % Plt Count (150-450) K/mm3 MPV (7.5-11.0) fl Segmented Neutrophils (36.0-66.0) % Lymphocytes (Manual) (24-44) % Monocytes (Manual) (0.0-12.0) % Eosinophils (Manual) (0.00-3.0) % Hypochromia Platelet Estimate (NORMAL) RBC Morphology Anisocytosis Microcytosis Sodium 136 L (137-145) mmol/L Potassium 5.0 (3.5-5.1) mmol/L Chloride 103 (98-107) mmol/L Carbon Dioxide 21 L (22-30) mmol/L Anion Gap 17.6 H (5-15) MEQ/L BUN 50 H (7-17) mg/dL Creatinine 2.77 H (0.52-1.04) mg/dL Estimated GFR 17.6 ML/MIN Glucose 126 H (74-106) mg/dL Lactic Acid (0.4-2.0) Calcium 8.8 (8.4-10.2) mg/dL Total Bilirubin 0.80 (0.2-1.3) mg/dL AST 22 (14-36) U/L ALT 14 (0-35) U/L Alkaline Phosphatase 93 (38-126) U/L Serum Total Protein 6.6 (6.3-8.2) g/dL Albumin 3.7 (3.5-5.0) g/dL Amylase 32 (30-110) U/L Lipase 24 (23-300) U/L Urine Color ROJELIO (YELLOW) Urine Appearance TURBID (CLEAR) Urine pH 5.0 (5-6) Ur Specific Gray 1.017 (1.005-1.025) Urine Protein 30 (Negative) Urine Ketones NEGATIVE (NEGATIVE) Urine Blood NEGATIVE (0-5) Evaristo/ul Urine Nitrite NEGATIVE (NEGATIVE) Urine Bilirubin NEGATIVE (NEGATIVE) Urine Urobilinogen NEGATIVE (0-1) mg/dL Ur Leukocyte Esterase LARGE (NEGATIVE) Urine WBC (Auto) >100 (0-5) /HPF Urine RBC (Auto) 26-50 (0-2) /HPF U Hyaline Cast (Auto) >50 (0-2) /LPF U Epithel Cells (Auto) FEW (FEW) /HPF Urine Bacteria (Auto) MANY (NEGATIVE) /HPF Urine Mucus (Auto) SLIGHT (NEGATIVE) /HPF Urine Culture Reflexed YES (NO) Urine Glucose NEGATIVE (NEGATIVE) mg/dL SARS-CoV-2 (PCR) (NEGATIVE) ABO Group Rh Factor Antibody Screen (NEGATIVE) 03/08/21 03/08/21 Range/Units 15:27 15:20 WBC 6.5 (4.0-10.5) K/mm3 RBC 2.79 L (4.1-5.4) M/mm3 Hgb 7.8 L (12.0-16.0) gm/dl Hct 26.8 L (35-47) % MCV 96.1 (78-100) fl MCH 28.0 (26-32) pg MCHC 29.1 L (32-36) g/dl RDW 19.4 H (11.5-14.0) % Plt Count 317 (150-450) K/mm3 MPV 11.7 H (7.5-11.0) fl Segmented Neutrophils 79 H (36.0-66.0) % Lymphocytes (Manual) 17 L (24-44) % Monocytes (Manual) 3 (0.0-12.0) % Eosinophils (Manual) 1 (0.00-3.0) % Hypochromia 1+ Platelet Estimate NORMAL (NORMAL) RBC Morphology ABNORMAL Anisocytosis 1+ Microcytosis 1+ Sodium (137-145) mmol/L Potassium (3.5-5.1) mmol/L Chloride (98-107) mmol/L Carbon Dioxide (22-30) mmol/L Anion Gap (5-15) MEQ/L BUN (7-17) mg/dL Creatinine (0.52-1.04) mg/dL Estimated GFR ML/MIN Glucose (74-106) mg/dL Lactic Acid 3.7 H (0.4-2.0) Calcium (8.4-10.2) mg/dL Total Bilirubin (0.2-1.3) mg/dL AST (14-36) U/L ALT (0-35) U/L Alkaline Phosphatase (38-126) U/L Serum Total Protein (6.3-8.2) g/dL Albumin (3.5-5.0) g/dL Amylase (30-110) U/L Lipase (23-300) U/L Urine Color (YELLOW) Urine Appearance (CLEAR) Urine pH (5-6) Ur Specific Gray (1.005-1.025) Urine Protein (Negative) Urine Ketones (NEGATIVE) Urine Blood (0-5) Evaristo/ul Urine Nitrite (NEGATIVE) Urine Bilirubin (NEGATIVE) Urine Urobilinogen (0-1) mg/dL Ur Leukocyte Esterase (NEGATIVE) Urine WBC (Auto) (0-5) /HPF Urine RBC (Auto) (0-2) /HPF U Hyaline Cast (Auto) (0-2) /LPF U Epithel Cells (Auto) (FEW) /HPF Urine Bacteria (Auto) (NEGATIVE) /HPF Urine Mucus (Auto) (NEGATIVE) /HPF Urine Culture Reflexed (NO) Urine Glucose (NEGATIVE) mg/dL SARS-CoV-2 (PCR) (NEGATIVE) ABO Group Rh Factor Antibody Screen (NEGATIVE) - Progress Progress: improved, pain not gone completely, re-examined Progress Note: 03/08/21 16:38 CAT scan of the abdomen and pelvis without contrast shows a new small hiatal hernia. There are chronic findings. The remainder of the CT abdomen/pelvis without contrast exam is negative. 03/08/21 16:49 Medical decision making: This patient chronic anemia but her hemoglobin is lower than typical for her. In addition she has acute on chronic renal failure with a more elevated creatinine than typical for her. Finally, she has a significant urinary tract infection. I called her primary care physician, Dr. Matta, and he is out of town. I contacted Dr. Lennon who is covering for the hospital service. I reviewed the patient history, and results of the lab work and CAT scan with him. He agrees with admitting this patient into the hospital and provide the patient with intravenous fluids, intravenous antibiotics and repeat labs in the morning. Discussed with : Edgar Counseled pt/family regarding: lab results, diagnosis, need for follow-up, rad results - Departure Departure Disposition: In-patient Admission Clinical Impression: Anemia, Acute on chronic renal insufficiency, UTI (urinary tract infection) Condition: Stable Critical Care Time: No
[2021-03-08] MEDS ORDERED: Sodium Chloride 0.9% 1000 ML 1,000 ML IV STA (14:55)
[2021-03-08] MEDS ORDERED: Zofran 4 MG/2 ML VIAL IV ONE (14:55)
[2021-03-08] MEDS ORDERED: Zofran 4 MG/2 ML VIAL ONE (15:23)
[2021-03-08] MEDS ORDERED: Sodium Chloride 0.9% 1000 ML 1,000 ML ONE (15:24)
[2021-03-08 15:26] LABS: Hematocrit 26.8 % (35-47); Hemoglobin 7.8 gm/dl (12.0-16.0); Mean Cell Volume 96.1 fl (78-100); Mean Corpuscular Hgb Concent. 29.1 g/dl (32-36); Mean Platelet Volume 11.7 fl (7.5-11.0); Platelet Count 317 K/mm3 (150-450); Red Blood Count 2.79 M/mm3 (4.1-5.4); Red Cell Distribution Width 19.4 % (11.5-14.0); White Blood Count 6.5 K/mm3 (4.0-10.5)
[2021-03-08 15:43] LABS: ALBUMIN 3.7 g/dL (3.5-5.0); ANION GAP 17.6 MEQ/L (5-15); BILIRUBIN,TOTAL 0.8 mg/dL (0.2-1.3); Calcium 8.8 mg/dL (8.4-10.2); Creatinine 1 2.77 mg/dL (0.52-1.04); EST GLOMERULAR FILTRATION RATE 17.6 ML/MIN; Total Protein 6.6 g/dL (6.3-8.2)
[2021-03-08 15:52] LABS: ANISOCYTOSIS 1+; Eosinophil 1 % (0.00-3.0); Hypochromia 1+; Lymphocytes 17 % (24-44); Monocyte 3 % (0.0-12.0); Neutrophils 79 % (36.0-66.0); Platelet Estimate NORMAL (NORMAL); Total Cells Counted 100
[2021-03-08 15:53] LABS: Microcytosis 1+
--- NOTE | 2021-03-08 16:25 | XRAY ---
Indication: Abdomen/pelvic pain. Nausea and vomiting. Alternating constipation and diarrhea. Multiple contiguous axial images obtained through the abdomen and pelvis without contrast. Comparison: September 01, 2017. Lung bases again demonstrates bibasilar dependent atelectasis. No infiltrate or effusion. Heart not enlarged. New small hiatal hernia. Noncontrasted stomach and bowel loops are nonobstructed. Again scattered descending and sigmoid diverticulosis without diverticulitis. Appendectomy, hysterectomy, and cholecystectomy reported. No free fluid/air. Stable fatty liver and small bilateral renal exophytic cysts. Remaining liver, pancreas, spleen, adrenal glands, kidneys, ureters, and bladder are unremarkable for noncontrast exam. Again mild aortoiliac calcifications without AAA. Osseous structures intact again with advanced multilevel degenerative spondylosis, mild levorotoscoliosis, and mild bilateral hip degenerative arthropathy. Impression: 1. New small hiatal hernia. 2. Again colonic diverticulosis, fatty liver, bilateral renal cysts, and chronic bony findings. 3. Remaining CT abdomen/pelvis without contrast exam is negative.
[2021-03-08 16:37] LABS: Appearance TURBID (CLEAR); Bacteria MANY /HPF (NEGATIVE); Bilirubin NEGATIVE (NEGATIVE); Blood NEGATIVE Ery/ul (0-5); Epithelial Cells FEW /HPF (FEW); Glucose NEGATIVE (NEGATIVE); Hyaline Casts >50 /LPF (0-2); Ketones NEGATIVE (NEGATIVE); Leukocyte Esterase LARGE (NEGATIVE); Mucus SLIGHT /HPF (NEGATIVE); Nitrite NEGATIVE (NEGATIVE); Protein,Urine Dip 30 (Negative); RBC 26-50 /HPF (0-2); Specific Gravity 1.017 (1.005-1.025); Urobilinogen NEGATIVE mg/dL (0-1); WBC >100 /HPF (0-5)
[2021-03-08] MEDS ORDERED: ROCEPHIN 1 Gm-D5w 50 ml Bag** 1 G/50 ML IVPB IV STA (16:41)
[2021-03-08] MEDS ORDERED: ROCEPHIN 1 Gm-D5w 50 ml Bag** 1 G/50 ML IVPB IV ONE (16:59)
[2021-03-08 18:02] LABS: ABO TYPING A; Antibody Screen NEGATIVE (NEGATIVE); RH TYPING POSITIVE
[2021-03-08] MEDS ORDERED: Heparin 1000 units/ml (10 Ml vial) 1,000 U in Sodium Chloride 0.9% 500 ML 500 ML IV ONE (18:33)
[2021-03-08] MEDS ORDERED: Zofran 4 MG/2 ML VIAL IV PRN (18:39)
[2021-03-08] MEDS: TYLENOL 325 MG PO PRN (20:31)
[2021-03-08] MEDS ORDERED: ZYLOPRIM 300 MG PO ONE (21:16)
[2021-03-08] MEDS ORDERED: ZOCOR 20MG PO ONE (21:16)
[2021-03-08] MEDS ORDERED: IMODIUM 2 MG PO PRN (21:17)
[2021-03-08] MEDS ORDERED: Tessalon Perles 100 MG PO PRN (21:18)
[2021-03-08] MEDS ORDERED: ELIQUIS 2.5 MG TABLET PO ONE (21:20)
[2021-03-09 05:20] LABS: Hematocrit 22.8 % (35-47); Mean Cell Volume 96.2 fl (78-100); Mean Corpuscular Hemoglobin 27.8 pg (26-32); Mean Corpuscular Hgb Concent. 28.9 g/dl (32-36); Mean Platelet Volume 11.2 fl (7.5-11.0); Platelet Count 268 K/mm3 (150-450); Red Blood Count 2.37 M/mm3 (4.1-5.4); White Blood Count 5.4 K/mm3 (4.0-10.5)
[2021-03-09 05:34] LABS: Hemoglobin 6.6 gm/dl (12.0-16.0)
[2021-03-09] MEDS: TYLENOL 325 MG PO PRN ×2 (05:44→22:02)
[2021-03-09 06:04] LABS: Calcium 8.1 mg/dL (8.4-10.2); Creatinine 1 2.68 mg/dL (0.52-1.04); EST GLOMERULAR FILTRATION RATE 18.3 ML/MIN; Potassium 5.5 mmol/L (3.5-5.1)
[2021-03-09] MEDS: Sodium Chloride 0.9% 1000 ML 1,000 ML IV SCH ×2 (07:11→07:40)
--- NOTE | 2021-03-09 07:54 | HP ---
CHIEF COMPLAINT: Nausea, vomiting and diarrhea. HISTORY OF PRESENT ILLNESS: The patient is a 80-year-old white female who reports she has had the above symptoms for the past four days. She has not been hungry and not eating. The patient presented to the emergency room for her concerns. She was admitted to the hospital for urinary tract infection, anemia and dehydration, chronic renal failure possibly acute on chronic. The patient normally sees Dr. Matta who is out of town on a family emergency and the emergency room did not know that doctor Dr. Cardoza was covering for Dr. Matta yesterday and they called me as the service doctor. PAST MEDICAL HISTORY: Significant for her chronic renal failure for which she is seeing Dr. Amezcua. The patient otherwise has medical history including coronary artery disease, arrhythmia and heart failure, hypertension, hyperlipidemia, peripheral vascular disease, chronic obstructive pulmonary disease, emphysema, pneumonia, hypothyroidism, degenerative disc disease, gastroesophageal reflux disease, hernia, history of colon polyps, restrictive lung disease, obesity, chronic fatigue and frequent urinary tract infections. PAST SURGICAL HISTORY: She previously had cholecystectomy, hysterectomy, bilateral knee replacements. HOME MEDICATIONS: Currently are Allopurinol 300 mg a day, metoprolol 50 mg a day, nitroglycerin 0.4 sublingual PRN for chest pain, Simvastatin 40 mg a day, fluticasone nasal spray, vitamin D tablets 50,000 units weekly, irbesartan 150 mg daily, prednisone 5 mg a day, famotidine 20 mg b.i.d., docusate sodium, Advair inhaler 100/50 daily, Lasix 40 mg b.i.d. on an as needed basis for leg swelling, levothyroxine 25 mcg a day. ALLERGIES: COLCHICINE. SULFA. LATEX. PHYSICAL EXAMINATION: The patient's vital signs on admission showed her temperature to be 96.7F, pulse 60, respiratory rate 18 and blood pressure 105/59. O2 saturation 97%. HEENT: Normocephalic, atraumatic. Pupils equal round reactive to light. Oropharynx is slightly dry. NECK: Supple without lymphadenopathy, thyromegaly or JVD. CHEST: Essentially clear to auscultation. HEART: Currently regular rate and rhythm without significant murmurs, rubs or gallops heard. ABDOMEN: Shows no tenderness or masses felt. EXTREMITIES: Without cyanosis, clubbing or edema. NEUROLOGIC: The patient is currently alert and oriented x3. LAB DATA AND TESTS: Her laboratory studies showed initially her lactic acid to be 3.7 down to 1.5 after fluid hydration in the emergency room. She had a urinary tract infection with greater 100 white blood cells per high power field and large leukocytes however the nitrite was negative. Urine culture was sent. She is A-positive on the type and screen. COVID test was negative. Her white count was 6,500, hemoglobin 7.8, PLT count 317,000. Her lipase is 24. X-rays showed a small hiatal hernia, colonic diverticulosis. CT scan abdomen and pelvis otherwise was negative. ASSESSMENT: A patient with dehydration and chronic renal failure probably acute on chronic as well with BUN being at 50. The patient otherwise has anemia probably secondary to her renal disease. We will ask her renal specialist the last time she might have had erythropoietin. In the meantime, since she is down below 7 now we will transfuse her 3 units of packed red blood cells. The patient has been placed empirically on Rocephin for urinary tract infection and we will gently hydrate to see if we can improve her kidney functions. Otherwise the patient is already feeling somewhat better this morning. We will continue the current plan and recheck labs in the morning.
[2021-03-09 07:57] LABS: CROSS MATCH (PRBC) COMPATIBLE (COMPATIBLE)
[2021-03-09] MEDS ORDERED: FLUTICASONE IH PRN (08:05)
[2021-03-09] MEDS ORDERED: SALMETEROL IH PRN (08:05)
[2021-03-09] MEDS ORDERED: Nitrostat 0.4 MG Tablet SL PRN (08:05)
[2021-03-09] MEDS ORDERED: ADVAIR HFA 45/21 COMMON CANISTER IH PRN (08:11)
[2021-03-09 08:56] LABS: INR 1.54 (0.8-3.0); PROTIME 18.2 SECONDS (9.4-12.5)
[2021-03-09 08:59] LABS: PTT 31.1 SECONDS (25.1-36.5)
[2021-03-09] MEDS: ELIQUIS 2.5 MG TABLET PO SCH ×2 (09:23→21:42)
[2021-03-09] MEDS: Toprol Xl 50 MG PO SCH (09:24)
[2021-03-09] MEDS: Colace 100 MG PO SCH ×2 (09:24→21:42)
[2021-03-09] MEDS: FEOSOL 325 MG PO SCH (09:24)
[2021-03-09] MEDS: Avapro 150 MG PO SCH (09:25)
[2021-03-09] MEDS: DELTASONE 5 MG PO SCH (09:26)
[2021-03-09] MEDS: Flonase NASAL NS SCH ×2 (09:26→21:43)
[2021-03-09] MEDS: SYNTHROID 50 MCG PO SCH (09:26)
[2021-03-09] MEDS: Pepcid 20 MG PO SCH ×2 (09:26→21:41)
[2021-03-09] MEDS: ROCEPHIN 1 Gm-D5w 50 ml Bag** 1 G/50 ML IVPB IV SCH (11:29)
--- NOTE | 2021-03-09 14:41 | XRAY ---
Indication: Poor venous access. Need for blood transfusion. Informed consent obtained. Patient was placed on the fluoroscopic table in a supine position. Initial sonographic imaging of the right upper extremity was performed for localization of patent veins. The right upper extremity was then prepped and draped in sterile fashion. Tourniquet applied. 1% lidocaine plain used for local anesthesia. Using ultrasound guidance and a micropuncture needle, a basilic vein above the elbow was successfully percutaneously cannulized. A floppy tip 0.018 guidewire inserted. Tourniquet released. Needle was exchanged for a 5 [place] dilator peel-away sheath catheter. Ultimately a 5 [place] double-lumen PICC line was inserted over a longer 0.018 guidewire with the tip positioned in the distal SVC using fluoroscopic guidance. Guidewire removed. Both ports flushed with heparinized saline. Catheter was secured. Postoperative instructions and orders given. Patient discharged in good condition. Impression: Technically successful right upper extremity PICC line placement using ultrasound and fluoroscopic guidance. No immediate complications. Approximately 5 cc blood loss. Approximately 1.7 minute of fluoroscopy used. Catheter length is 38 cm.
--- NOTE | 2021-03-09 15:06 | XRAY ---
Indication: Ultrasound guidance for PICC line placement. Initial sonographic imaging of the right upper extremity was performed for localization of patent veins. A patent basilic vein identified above the elbow. Ultrasound guidance was then used for PICC line insertion. Full PICC line insertion is reported separately.
[2021-03-09 18:43] LABS: Hematocrit 28.3 % (35-47); Hemoglobin 8.6 gm/dl (12.0-16.0)
[2021-03-10] MEDS: Sodium Chloride 0.9% 1000 ML 1,000 ML IV SCH (01:44)
[2021-03-10] MEDS: TYLENOL 325 MG PO PRN ×2 (06:06→14:04)
[2021-03-10 06:58] LABS: Hematocrit 26.4 % (35-47); Hemoglobin 7.7 gm/dl (12.0-16.0); Mean Corpuscular Hemoglobin 27.7 pg (26-32); Mean Corpuscular Hgb Concent. 29.2 g/dl (32-36); Mean Platelet Volume 11.8 fl (7.5-11.0); Platelet Count 248 K/mm3 (150-450); Red Blood Count 2.78 M/mm3 (4.1-5.4); Red Cell Distribution Width 18.2 % (11.5-14.0); White Blood Count 4.5 K/mm3 (4.0-10.5)
[2021-03-10 07:18] LABS: ALBUMIN 3.1 g/dL (3.5-5.0); BILIRUBIN,TOTAL 0.5 mg/dL (0.2-1.3); Calcium 8.3 mg/dL (8.4-10.2); Creatinine 1 2.25 mg/dL (0.52-1.04); EST GLOMERULAR FILTRATION RATE 22.4 ML/MIN; Potassium 5.1 mmol/L (3.5-5.1); Total Protein 5.7 g/dL (6.3-8.2)
[2021-03-10] MEDS ORDERED: DULCOLAX 5 MG PO ONE (08:40)
--- NOTE | 2021-03-10 08:44 | PCM.NOTE ---
Date and Time: 03/10/21840 Subjective Assessment: patient is feeling some better, tolerating po intake but still has some abdominal discomfort but hasn't had a bowel movement since admission. Objective Exam General Appearance: no apparent distress Skin Exam: normal color, warm, dry Respiratory Exam: normal breath sounds, lungs clear, No respiratory distress Cardiovascular Exam: regular rate/rhythm, normal heart sounds Gastrointestinal/Abdomen Exam: soft, No tenderness, No mass Extremity Exam: normal inspection, normal range of motion OBJECTIVE DATA Vital Signs: Vital Signs - 24 hr Temp Pulse Resp BP Pulse Ox 03/10/21 08:00 97.0 F 71 16 124/83 97 03/10/21 04:00 97.3 F 73 19 124/59 97 03/09/21 23:12 99.1 F 75 19 129/58 94 L 03/09/21 20:00 98.6 F 71 20 126/60 96 03/09/21 15:31 97.7 F 83 16 129/56 93 L 03/09/21 11:43 97.7 F 68 16 98/44 97 Pain Assessment - Last Documented Pain Intensity 1 Pain Scale Used 0-10 Pain Scale Intake and Output: Intake & Output 03/07/21 03/08/21 03/09/21 03/10/21 11:59 11:59 11:59 11:59 Intake Total 1520 2104 Output Total 350 Balance 1170 2104 Weight 119 kg Lab Results: Lab Results-Last 24 Hours 03/09/21 03/09/21 03/10/21 Range/Units 04:00 18:29 05:44 WBC 4.5 (4.0-10.5) K/mm3 RBC 2.78 L (4.1-5.4) M/mm3 Hgb 8.6 L D 7.7 L (12.0-16.0) gm/dl Hct 28.3 L 26.4 L (35-47) % MCV 95.0 (78-100) fl MCH 27.7 (26-32) pg MCHC 29.2 L (32-36) g/dl RDW 18.2 H (11.5-14.0) % Plt Count 248 (150-450) K/mm3 MPV 11.8 H (7.5-11.0) fl PT 18.2 H (9.4-12.5) SECONDS INR 1.54 (0.8-3.0) APTT 31.1 (25.1-36.5) SECONDS Sodium (137-145) mmol/L Potassium (3.5-5.1) mmol/L Chloride (98-107) mmol/L Carbon Dioxide (22-30) mmol/L Anion Gap (5-15) MEQ/L BUN (7-17) mg/dL Creatinine (0.52-1.04) mg/dL Estimated GFR ML/MIN Glucose (74-106) mg/dL Calcium (8.4-10.2) mg/dL Total Bilirubin (0.2-1.3) mg/dL AST (14-36) U/L ALT (0-35) U/L Alkaline Phosphatase (38-126) U/L Serum Total Protein (6.3-8.2) g/dL Albumin (3.5-5.0) g/dL 03/10/21 Range/Units 05:44 WBC (4.0-10.5) K/mm3 RBC (4.1-5.4) M/mm3 Hgb (12.0-16.0) gm/dl Hct (35-47) % MCV (78-100) fl MCH (26-32) pg MCHC (32-36) g/dl RDW (11.5-14.0) % Plt Count (150-450) K/mm3 MPV (7.5-11.0) fl PT (9.4-12.5) SECONDS INR (0.8-3.0) APTT (25.1-36.5) SECONDS Sodium 137 D (137-145) mmol/L Potassium 5.1 (3.5-5.1) mmol/L Chloride 108 H (98-107) mmol/L Carbon Dioxide 22 (22-30) mmol/L Anion Gap 12.0 (5-15) MEQ/L BUN 48 H (7-17) mg/dL Creatinine 2.25 H (0.52-1.04) mg/dL Estimated GFR 22.4 ML/MIN Glucose 99 (74-106) mg/dL Calcium 8.3 L (8.4-10.2) mg/dL Total Bilirubin 0.50 (0.2-1.3) mg/dL AST 14 (14-36) U/L ALT 8 (0-35) U/L Alkaline Phosphatase 78 (38-126) U/L Serum Total Protein 5.7 L (6.3-8.2) g/dL Albumin 3.1 L (3.5-5.0) g/dL Radiology Exams: Radiology Procedures Category Date Time Status ABDOMEN AND PELVIS W/0 CONTRAS [CT] Stat Exams 03/08/21 15:15 Completed GUIDE FOR VASCULAR ACCESS [US] Routine Exams 03/09/21 09:49 Completed PICC LINE PLACEMENT Urgent Exams 03/09/21 13:00 Completed Assessment/Plan (1) Anemia Current Visit: Yes Status: Acute Assessment & Plan: check iron, b12 and folate, no certain etiology. patient is on anticoagulation, check stool for occult blood. lock fluids and repeat in am, if stable and no obvious source likely home Code(s): D64.9 - ANEMIA, UNSPECIFIED (2) Urinary tract infection Current Visit: Yes Status: Acute Assessment & Plan: e coli sens to rocephin. Code(s): N39.0 - URINARY TRACT INFECTION, SITE NOT SPECIFIED
[2021-03-10] MEDS: Flonase NASAL NS SCH ×2 (10:29→22:11)
[2021-03-10] MEDS: Colace 100 MG PO SCH ×2 (10:30→22:11)
[2021-03-10] MEDS: FEOSOL 325 MG PO SCH (10:30)
[2021-03-10] MEDS: Avapro 150 MG PO SCH (10:30)
[2021-03-10] MEDS: SYNTHROID 50 MCG PO SCH (10:31)
[2021-03-10] MEDS: Pepcid 20 MG PO SCH ×2 (10:31→22:11)
[2021-03-10] MEDS: ELIQUIS 2.5 MG TABLET PO SCH ×2 (10:31→22:11)
[2021-03-10] MEDS: DELTASONE 5 MG PO SCH (10:31)
[2021-03-10] MEDS: Toprol Xl 50 MG PO SCH (10:31)
[2021-03-10] MEDS: ROCEPHIN 1 Gm-D5w 50 ml Bag** 1 G/50 ML IVPB IV SCH (11:29)
[2021-03-10 12:02] LABS: Folate (Folic Acid) 3.17 ng/mL (2.76 - >20)
[2021-03-11 06:06] LABS: Hematocrit 25.9 % (35-47); Hemoglobin 7.6 gm/dl (12.0-16.0); Mean Cell Volume 94.9 fl (78-100); Mean Corpuscular Hemoglobin 27.8 pg (26-32); Mean Corpuscular Hgb Concent. 29.3 g/dl (32-36); Mean Platelet Volume 11.7 fl (7.5-11.0); Platelet Count 234 K/mm3 (150-450); Red Blood Count 2.73 M/mm3 (4.1-5.4); Red Cell Distribution Width 18.2 % (11.5-14.0); White Blood Count 4.9 K/mm3 (4.0-10.5)
[2021-03-11 06:29] LABS: ALBUMIN 3.2 g/dL (3.5-5.0); ANION GAP 12.9 MEQ/L (5-15); BILIRUBIN,TOTAL 0.4 mg/dL (0.2-1.3); Calcium 8.5 mg/dL (8.4-10.2); Creatinine 1 1.54 mg/dL (0.52-1.04); EST GLOMERULAR FILTRATION RATE 34.6 ML/MIN; Potassium 5.1 mmol/L (3.5-5.1); Total Protein 5.8 g/dL (6.3-8.2)
[2021-03-11 07:08] LABS: ANISOCYTOSIS 1+; BAND 3 % (0.0-2.0); Basophil 1 % (0.0-1.0); Eosinophil 1 % (0.00-3.0); Lymphocytes 18 % (24-44); Monocyte 3 % (0.0-12.0); Neutrophils 74 % (36.0-66.0); Platelet Estimate NORMAL (NORMAL); Polychromasia 1+; Total Cells Counted 100; Toxic Granulation 2+
[2021-03-11] MEDS: Flonase NASAL NS SCH (08:11)
[2021-03-11] MEDS: Colace 100 MG PO SCH (08:12)
[2021-03-11] MEDS: Pepcid 20 MG PO SCH (08:12)
[2021-03-11] MEDS: DELTASONE 5 MG PO SCH (08:13)
[2021-03-11] MEDS: Avapro 150 MG PO SCH (08:13)
[2021-03-11] MEDS: ELIQUIS 2.5 MG TABLET PO SCH (08:13)
[2021-03-11] MEDS: FEOSOL 325 MG PO SCH (08:13)
[2021-03-11] MEDS: SYNTHROID 50 MCG PO SCH (08:13)
[2021-03-11] MEDS: Toprol Xl 50 MG PO SCH (08:14)
[2021-03-11] MEDS: TYLENOL 325 MG PO PRN (09:02)
--- NOTE | 2021-03-11 09:42 | PCM.NOTE ---
Date and Time: 03/11/21940 Subjective Assessment: patient c/o stomach pain, still has not had a bowel movement since admission, cramping and affecting her appetite. otherwise feels ok Objective Exam General Appearance: no apparent distress, obese Neurologic Exam: alert, oriented x 3 Respiratory Exam: normal breath sounds, lungs clear, No respiratory distress Cardiovascular Exam: regular rate/rhythm, normal heart sounds Gastrointestinal/Abdomen Exam: soft, No tenderness, No mass Extremity Exam: normal inspection, normal range of motion OBJECTIVE DATA Vital Signs: Vital Signs - 24 hr Temp Pulse Resp BP Pulse Ox 03/11/21 08:00 98 F 77 18 143/63 96 03/11/21 04:00 97.4 F 88 18 139/65 95 03/10/21 23:57 97.5 F 71 20 133/62 95 03/10/21 20:00 97.3 F 81 20 158/66 95 03/10/21 16:00 95.3 F 77 18 144/66 96 03/10/21 12:00 96.5 F 74 16 150/78 95 Pain Assessment - Last Documented Pain Intensity 9 Pain Scale Used 0-10 Pain Scale Intake and Output: Intake & Output 03/08/21 03/09/21 03/10/21 03/11/21 11:59 11:59 11:59 11:59 Intake Total 1520 2104 860 Output Total 350 Balance 1170 2104 860 Weight 119 kg Lab Results: Lab Results-Last 24 Hours 03/10/21 03/10/21 03/11/21 Range/Units Unknown Unknown 05:35 WBC 4.9 (4.0-10.5) K/mm3 RBC 2.73 L (4.1-5.4) M/mm3 Hgb 7.6 L (12.0-16.0) gm/dl Hct 25.9 L (35-47) % MCV 94.9 (78-100) fl MCH 27.8 (26-32) pg MCHC 29.3 L (32-36) g/dl RDW 18.2 H (11.5-14.0) % Plt Count 234 (150-450) K/mm3 MPV 11.7 H (7.5-11.0) fl Segmented Neutrophils 74 H (36.0-66.0) % Band Neutrophils 3 H (0.0-2.0) % Lymphocytes (Manual) 18 L (24-44) % Monocytes (Manual) 3 (0.0-12.0) % Eosinophils (Manual) 1 (0.00-3.0) % Basophils (Manual) 1 (0.0-1.0) % Toxic Granulation 2+ Platelet Estimate NORMAL (NORMAL) RBC Morphology ABNORMAL Polychromasia 1+ Anisocytosis 1+ Sodium (137-145) mmol/L Potassium (3.5-5.1) mmol/L Chloride (98-107) mmol/L Carbon Dioxide (22-30) mmol/L Anion Gap (5-15) MEQ/L BUN (7-17) mg/dL Creatinine (0.52-1.04) mg/dL Estimated GFR ML/MIN Glucose (74-106) mg/dL Calcium (8.4-10.2) mg/dL Iron 61 (37-170) ug/dL Ferritin 390 H (11.1-264) ng/mL Total Bilirubin (0.2-1.3) mg/dL AST (14-36) U/L ALT (0-35) U/L Alkaline Phosphatase (38-126) U/L Serum Total Protein (6.3-8.2) g/dL Albumin (3.5-5.0) g/dL Vitamin B12 820 (239-931) pg/mL Folic Acid 3.17 (2.76 - >20) ng/mL 03/11/21 Range/Units 05:35 WBC (4.0-10.5) K/mm3 RBC (4.1-5.4) M/mm3 Hgb (12.0-16.0) gm/dl Hct (35-47) % MCV (78-100) fl MCH (26-32) pg MCHC (32-36) g/dl RDW (11.5-14.0) % Plt Count (150-450) K/mm3 MPV (7.5-11.0) fl Segmented Neutrophils (36.0-66.0) % Band Neutrophils (0.0-2.0) % Lymphocytes (Manual) (24-44) % Monocytes (Manual) (0.0-12.0) % Eosinophils (Manual) (0.00-3.0) % Basophils (Manual) (0.0-1.0) % Toxic Granulation Platelet Estimate (NORMAL) RBC Morphology Polychromasia Anisocytosis Sodium 137 (137-145) mmol/L Potassium 5.1 (3.5-5.1) mmol/L Chloride 107 (98-107) mmol/L Carbon Dioxide 22 (22-30) mmol/L Anion Gap 12.9 (5-15) MEQ/L BUN 43 H (7-17) mg/dL Creatinine 1.54 H (0.52-1.04) mg/dL Estimated GFR 34.6 ML/MIN Glucose 102 (74-106) mg/dL Calcium 8.5 (8.4-10.2) mg/dL Iron (37-170) ug/dL Ferritin (11.1-264) ng/mL Total Bilirubin 0.40 (0.2-1.3) mg/dL AST 19 (14-36) U/L ALT 9 (0-35) U/L Alkaline Phosphatase 78 (38-126) U/L Serum Total Protein 5.8 L (6.3-8.2) g/dL Albumin 3.2 L (3.5-5.0) g/dL Vitamin B12 (239-931) pg/mL Folic Acid (2.76 - >20) ng/mL Radiology Exams: Radiology Procedures Category Date Time Status GUIDE FOR VASCULAR ACCESS [US] Routine Exams 03/09/21 09:49 Completed PICC LINE PLACEMENT Urgent Exams 03/09/21 13:00 Completed Assessment/Plan (1) Urinary tract infection Current Visit: Yes Status: Acute Assessment & Plan: e coli, sens to rocephin Code(s): N39.0 - URINARY TRACT INFECTION, SITE NOT SPECIFIED (2) Anemia Current Visit: Yes Status: Acute Code(s): D64.9 - ANEMIA, UNSPECIFIED (3) Constipation Current Visit: Yes Status: Acute Assessment & Plan: mag citrate Code(s): K59.00 - CONSTIPATION, UNSPECIFIED (4) Acute on chronic renal insufficiency Current Visit: Yes Status: Acute Assessment & Plan: stable, likely the source of anemia, h/h currently stable Code(s): N28.9 - DISORDER OF KIDNEY AND URETER, UNSPECIFIED; N18.9 - CHRONIC KIDNEY DISEASE, UNSPECIFIED
[2021-03-11] MEDS ORDERED: CITROMA 296 ML PO ONE (10:00)
[2021-03-11] MEDS: ROCEPHIN 1 Gm-D5w 50 ml Bag** 1 G/50 ML IVPB IV SCH (10:07)
[2021-03-11 12:04] VITALS: BP 148/65; PULSE 65; O2SAT 97
--- NOTE | 2021-03-13 17:54 | PCM.DS ---
Discharge Summary Date of Admission: 03/08/21 18:48 Admitting Physician: KENAN BIRMINGHAM Primary Care Provider: KENAN BIRMINGHAM Allergies Allergies venom-honey bee [bee venom (honey bee)] Allergy (Intermediate, Verified 03/08/21 14:50) colchicine Allergy (Mild, Verified 03/08/21 14:50) Hives Latex, Natural Rubber Allergy (Mild, Verified 03/08/21 14:50) Rash Sulfa (Sulfonamide Antibiotics) Allergy (Mild, Verified 03/08/21 14:50) Hives sulfamethoxazole [From Bactrim] Allergy (Mild, Verified 03/08/21 14:50) Rash trimethoprim [From Bactrim] Allergy (Mild, Verified 03/08/21 14:50) Rash Hospital Summary - Hospital Course Hospital Course: Chief Complaint Diagnosis UTI Allergies Allergy/AdvReac Type Severity Reaction Status Date / Time venom-honey bee Allergy Intermediate Verified 03/08/21 14:50 [bee venom (honey bee)] colchicine Allergy Mild Hives Verified 03/08/21 14:50 Latex, Natural Rubber Allergy Mild Rash Verified 03/08/21 14:50 Sulfa (Sulfonamide Allergy Mild Hives Verified 03/08/21 14:50 Antibiotics) sulfamethoxazole Allergy Mild Rash Verified 03/08/21 14:50 [From Bactrim] trimethoprim [From Bactrim] Allergy Mild Rash Verified 03/08/21 14:50 Home Medications Medication Instructions Recorded Confirmed Last Taken Type Apixaban [Eliquis] 2.5 mg PO BID 03/08/21 03/08/21 Unknown History Benzonatate [Tessalon Perle] 100 mg PO TID PRN PRN 03/08/21 03/08/21 Unknown History Loperamide HCl 2 mg [Imodium 2 2 mg PO Q4H PRN PRN 03/08/21 03/08/21 Unknown History mg] Montelukast Sodium 10 mg 10 mg PO DAILY 03/08/21 03/08/21 Unknown History [Singulair 10 MG] Non-Formulary Drug [Non-Formulary 100 mcg IH QID 03/08/21 03/08/21 Unknown History Item] Cephalexin Mh 500 mg [Keflex 500 500 mg PO QID 7 Days #28 cap 03/11/21 Unknown Rx mg] Current Medications Discontinued Medications Generic Name Dose Route Start Last Admin Trade Name Freq PRN Reason Stop Dose Admin Acetaminophen 650 mg 03/08/21 18:39 03/11/21 09:02 Acetaminophen 325 Mg Tablet PO 04/07/21 18:38 650 mg Q6H PRN PRN Administration PAIN AND/OR FEVER Allopurinol 300 mg 03/08/21 21:16 03/08/21 22:01 Allopurinol 300 Mg Tablet PO 03/08/21 21:17 300 mg HS ONE Administration Apixaban 2.5 mg 03/08/21 21:20 03/08/21 22:01 Apixaban 2.5 Mg Tablet PO 03/08/21 21:21 2.5 mg BID ONE Administration Apixaban 2.5 mg 03/09/21 10:00 03/11/21 08:13 Apixaban 2.5 Mg Tablet PO 04/08/21 09:59 2.5 mg BID JAMEE Administration Benzonatate 100 mg 03/08/21 21:18 Benzonatate 100 Mg Capsule PO 04/07/21 21:17 TID PRN PRN COUGH Bisacodyl 10 mg 03/10/21 08:40 03/10/21 09:45 Bisacodyl 5 Mg Tablet.Ec PO 03/10/21 08:41 10 mg ONCE ONE Administration Docusate Sodium 100 mg 03/09/21 10:00 03/11/21 08:12 Docusate Sodium 100 Mg Capsule PO 04/08/21 09:59 100 mg BID JAMEE Administration Famotidine 20 mg 03/09/21 10:00 03/11/21 08:12 Famotidine 20 Mg Tablet PO 04/08/21 09:59 20 mg BID JAMEE Administration Ferrous Sulfate 325 mg 03/09/21 10:00 03/11/21 08:13 Ferrous Sulfate 325 Mg Tablet PO 04/08/21 09:59 325 mg DAILY JAMEE Administration Fluticasone Propionate 0 gm 03/09/21 10:00 03/11/21 08:11 Fluticasone Propionate 16 Gm Bottle Nasal [place] NS 04/08/21 09:59 16 gm BID JAMEE Administration Heparin Sodium (Beef Lung) 500 units 03/08/21 18:33 Heparin Lock Flush Pf 500 Units/5 Ml Syringe IV 03/08/21 18:34 .STK-MED ONE Heparin Sodium (Beef Lung) 500 units 03/10/21 16:03 03/10/21 16:09 Heparin Lock Flush Pf 500 Units/5 Ml Syringe PICC 04/09/21 16:02 500 units PRN PRN Administration IV PORT FLUSH Sodium Chloride 1,000 mls @ 999 mls/hr 03/08/21 14:55 03/08/21 16:36 Sodium Chloride 0.9% 1000 Ml IV 03/08/21 15:55 Infused .Q1H1M STA Infusion Sodium Chloride Confirm 03/08/21 15:24 Sodium Chloride 0.9% 1000 Ml Administered 03/08/21 15:25 Dose 1,000 mls @ ud .ROUTE .STK-MED ONE Ceftriaxone Sodium/Dextrose 1 g in 50 mls @ 100 mls/hr 03/08/21 16:41 03/08/21 17:36 Rocephin 1 Gm-D5w 50 Ml Bag IV 03/08/21 17:10 Infused STAT STA Infusion Ceftriaxone Sodium/Dextrose Confirm 03/08/21 16:59 Rocephin 1 Gm-D5w 50 Ml Bag Administered 03/08/21 17:00 Dose 1 g in 50 mls @ ud IV .STK-MED ONE Sodium Chloride 1,000 mls @ 75 mls/hr 03/08/21 18:39 03/10/21 01:44 Sodium Chloride 0.9% 1000 Ml IV 04/07/21 18:38 75 mls/hr .[id number] JAMEE Administration Ceftriaxone Sodium/Dextrose 1 g in 50 mls @ 100 mls/hr 03/09/21 10:00 03/11/21 10:07 Rocephin 1 Gm-D5w 50 Ml Bag IV 03/13/21 09:59 100 mls/hr Q24H10 JAMEE Administration Heparin Sodium (Porcine) 1,000 501 mls @ ud 03/08/21 18:33 u/ Sodium Chloride IV 03/08/21 18:34 .STK-MED ONE Irbesartan 75 mg 03/09/21 10:00 03/11/21 08:13 Irbesartan 150 Mg Tablet PO 04/08/21 09:59 75 mg DAILY JAMEE Administration Levothyroxine Sodium 50 mcg 03/09/21 10:00 03/11/21 08:13 Levothyroxine Sodium 50 Mcg Tablet PO 04/08/21 09:59 50 mcg DAILY JAMEE Administration Loperamide HCl 2 mg 03/08/21 21:17 Loperamide Hcl 2 Mg Capsule PO 04/07/21 21:16 Q4H PRN PRN DIARRHEA Magnesium Citrate 296 ml 03/11/21 10:00 03/11/21 10:07 Magnesium Citrate 296 Ml Solution PO 03/11/21 10:01 296 ml 1XONLY ONE Administration Metoprolol Succinate 50 mg 03/09/21 10:00 03/11/21 08:14 Metoprolol Succinate 50 Mg Tablet.Sa PO 04/08/21 09:59 50 mg DAILY JAMEE Administration Nitroglycerin 0.4 mg 03/09/21 08:05 Nitroglycerin 0.4 Mg Tablet Bottle SL 04/08/21 08:04 Q5MIN PRN MR X 3 PRN CHEST PAIN Ondansetron HCl 4 mg 03/08/21 14:55 03/08/21 15:24 Ondansetron Hcl 4 Mg/2 Ml Vial IV 03/08/21 14:56 4 mg STAT ONE Administration Ondansetron HCl Confirm 03/08/21 15:23 Ondansetron Hcl 4 Mg/2 Ml Vial Administered 03/08/21 15:24 Dose 4 mg .ROUTE .STK-MED ONE Ondansetron HCl 4 mg 03/08/21 18:39 Ondansetron Hcl 4 Mg/2 Ml Vial IV 04/07/21 18:38 Q6H PRN PRN NAUSEA/VOMITING Prednisone 5 mg 03/09/21 10:00 03/11/21 08:13 Prednisone 5 Mg Tablet PO 04/08/21 09:59 5 mg DAILY JAMEE Administration Fluticasone/Salmeterol 2 puff 03/09/21 08:11 Fluticasone/Salmeterol 60 Puff Common Canister IH 04/08/21 08:10 DAILY PRN PRN SHORTNESS OF BREATH/WHEEZING Simvastatin 40 mg 03/08/21 21:16 03/08/21 22:01 Simvastatin 20 Mg Tablet PO 03/08/21 21:17 40 mg HS ONE Administration Intake & Output (Last 24 hours) 03/11/21 03/12/21 03/13/21 03/14/21 11:59 11:59 11:59 11:59 Intake Total 1360 Output Total 600 Balance 1360 -600 Patient Care Notes (Last 24 hours) 03/13/21 13:18 Case Management Note by Eunice Serrato CALLED FOR FOLLOW UP PHONE CALL- NO ANSWER AT THIS TIME Initialized on 03/13/21 13:18 - END OF NOTE - Vitals & Intake/Output Vital Signs: Vital Signs Temperature 97.3 F 03/11/21 12:00 Pulse Rate 65 03/11/21 12:00 Respiratory Rate 20 03/11/21 12:00 Blood Pressure 148/65 03/11/21 12:00 O2 Sat by Pulse Oximetry 97 03/11/21 12:00 Intake & Output: Intake & Output 03/11/21 03/12/21 03/13/21 03/14/21 11:59 11:59 11:59 11:59 Intake Total 1360 Output Total 600 Balance 1360 -600 - Lab Result Diagrams: 03/11/21 05:35 03/11/21 05:35 Micro Results-Entire Visit: Microbiology 03/08/21 16:05 Urine Culture - Final Urine, Void Escherichia Coli Discharge Exam General Appearance: no apparent distress, alert Neurologic Exam: alert, oriented x 3, cooperative, normal mood/affect, nml cer ebellar function, sensation nml, No motor deficits Eye Exam: PERRL, EOMI, eyes nml inspection Ears, Nose, Throat Exam: normal ENT inspection, pharynx normal, moist mucous membranes Neck Exam: normal inspection, non-tender, supple, full range of motion Respiratory Exam: normal breath sounds, lungs clear, No respiratory distress Cardiovascular Exam: regular rate/rhythm, normal heart sounds Gastrointestinal/Abdomen Exam: soft, No tenderness, No mass Pelvic Exam: deferred Rectal Exam: deferred Back Exam: normal inspection, normal range of motion, No CVA tenderness, No vert ebral tenderness Extremity Exam: normal inspection, normal range of motion Skin Exam: normal color, warm, dry Final Diagnosis/Problem List - Final Discharge Diagnosis/Problem (1) Urinary tract infection Status: Acute Assessment & Plan: Last Vital Signs Temp 97.3 F 03/11/21 12:00 Pulse 65 03/11/21 12:00 Resp 20 03/11/21 12:00 BP 148/65 03/11/21 12:00 Pulse Ox 97 03/11/21 12:00 Allergies venom-honey bee [bee venom (honey bee)] Allergy (Intermediate, Verified 03/08/21 14:50) colchicine Allergy (Mild, Verified 03/08/21 14:50) Hives Latex, Natural Rubber Allergy (Mild, Verified 03/08/21 14:50) Rash Sulfa (Sulfonamide Antibiotics) Allergy (Mild, Verified 03/08/21 14:50) Hives sulfamethoxazole [From Bactrim] Allergy (Mild, Verified 03/08/21 14:50) Rash trimethoprim [From Bactrim] Allergy (Mild, Verified 03/08/21 14:50) Rash Code(s): N39.0 - URINARY TRACT INFECTION, SITE NOT SPECIFIED (2) Acute on chronic renal insufficiency Status: Acute Code(s): N28.9 - DISORDER OF KIDNEY AND URETER, UNSPECIFIED; N18.9 - CHRONIC KIDNEY DISEASE, UNSPECIFIED (3) Anemia Status: Acute Code(s): D64.9 - ANEMIA, UNSPECIFIED (4) New onset atrial fibrillation Status: Acute Code(s): I48.91 - UNSPECIFIED ATRIAL FIBRILLATION (5) Normocytic anemia Status: Acute Code(s): D64.9 - ANEMIA, UNSPECIFIED (6) [id number] kidney injury Status: Chronic Priority: High Code(s): N17.9 - ACUTE KIDNEY FAILURE, UNSPECIFIED; N18.9 - CHRONIC KIDNEY DISEASE, UNSPECIFIED - Discharge Disposition: Home, Self-Care Condition: Stable Prescriptions: New Cephalexin Mh 500 mg [Keflex 500 mg] 500 mg PO QID 7 Days #28 cap Continue Simvastatin 40 mg [Zocor 40 mg] 40 mg PO HS Metoprolol Succinate 50 mg [Toprol Xl 50 MG] 50 mg PO DAILY Nitroglycerin 0.4 mg Tablet [Nitrostat 0.4 MG Tablet] 0.4 mg SL Q5MIN PRN MR X 3 PRN PRN Reason: Chest Pain Allopurinol 300 mg [Zyloprim 300 mg] 300 mg PO HS Fluticasone Propionate [Flonase NASAL] 16 gm NS BID Irbesartan 75 mg PO DAILY predniSONE [Prednisone] 5 mg PO DAILY Ergocalciferol (Vitamin D2) [Vitamin D] 50,000 unit PO UD Famotidine 20 mg [Pepcid 20 MG] 20 mg PO BID Levothyroxine Sodium 50 mcg PO DAILY Furosemide [Lasix] 40 mg PO DAILY Fluticasone/Salmeterol [Advair 100-50 Diskus] 1 each IH DAILY PRN PRN PRN Reason: Shortness Of Breath/Wheezing Docusate Sodium 100 mg [Colace 100 MG] 100 mg PO BID Ferrous Sulfate [Iron] 325 mg PO DAILY #30 tablet Montelukast Sodium 10 mg [Singulair 10 MG] 10 mg PO DAILY Apixaban [Eliquis] 2.5 mg PO BID Benzonatate [Tessalon Perle] 100 mg PO TID PRN PRN PRN Reason: Cough Loperamide HCl 2 mg [Imodium 2 mg] 2 mg PO Q4H PRN PRN PRN Reason: Diarrhea Non-Formulary Drug [Non-Formulary Item] 100 mcg IH QID Outpatient Orders: CBC Facility: [facility], Location: LABORATORY Instructions: Urinary Tract Infections in Adults, Anemia Caused by Low Iron Additional Instructions: CBC in 1 week. Follow up with Dr. [place] within 1 week. Please pickup prescription for antibiotic called into [facility], [place]. Follow up with: KAYLA OH [CONSULTING PHYSICIAN] - Call for Appointment KENAN BIRMINGHAM MD [Primary Care Provider] - 1 Week Forms: Discharge Instructions
[2021-03-15 11:34] LABS: BAND 2 % (0.0-2.0); Neutrophils 68 % (36.0-66.0); Total Cells Counted 100
[2021-03-15 11:35] LABS: ANISOCYTOSIS 1+; Eosinophil 2 % (0.00-3.0); Hypochromia 1+; Lymphocytes 27 % (24-44); Microcytosis 1+; Monocyte 1 % (0.0-12.0); Nucleated Red Blood Cell 1 %; Platelet Estimate NORMAL (NORMAL)
== END 2021-03-11 15:35 | disposition home or self-care (01) | DRG 690 ==
LOC: ED 14:36 → MED SURG 18:32 → OBSVTOIN 18:48
PROVIDERS: ADMIT General Practice; ATTEND General Practice
PROC: 02HV33Z Insertion of Infusion Device into Superior Vena Cava, Percutaneous Approach (ICD-10-PCS; principal; 2021-03-09)
DX: N39.0 Urinary tract infection, site not specified (principal); N17.9 Acute kidney failure, unspecified; I12.9 Hypertensive chronic kidney disease with stage 1 through stage 4 chronic kidney disease, or unspecified chronic kidney disease; N18.9 Chronic kidney disease, unspecified; R10.84 Generalized abdominal pain; R11.2 Nausea with vomiting, unspecified; E86.0 Dehydration; R53.1 Weakness; D64.9 Anemia, unspecified; I48.91 Unspecified atrial fibrillation; R19.7 Diarrhea, unspecified; Z20.822 Contact with and (suspected) exposure to COVID-19; Z79.01 Long term (current) use of anticoagulants; Z79.899 Other long term (current) drug therapy; K59.00 Constipation, unspecified
CPT/HCPCS: 36000; 36415; 36430; 36573; 74176; 76937; 77001; 80048; 80053; 81001; 82150; 82274; 82607; 82728; 82746; 83540; 83605; 83690; 85014; 85018; 85025; 85027; 85610; 85730; 86850; 86900; 86901; 86922; 87077; 87086; 87186; 96360; 96365; 96374; 99285; P9016; U0003; 85045; C1769; J0696; J1642; J1644; J2405; A9270-GY

== ENCOUNTER 2021-04-10 19:22 | Emergency (ER) | payer MEDICARE ==
--- NOTE | 2021-04-10 20:00 | ERPHSYRPT ---
- History of Present Illness Time Seen by Provider: 04/10/21 19:40 Historian: patient, EMS Exam Limitations: no limitations Patient Subjective Stated Complaint: Patient states " I just haven't been feeling well last 4 days. I haven't been able to have a BM in last 4 days and I am just full of gas. I feel weaker than usual and I just have been so sick last couple of days." Triage Nursing Assessment: Patient arrived to ED via ambulance and was 3 assist with transfer to bed. Patient A/O times 4. Patient able to follow instructions without difficulty. Patient states she has had some SOB throughout the day but nothing that is abnormal. Patient respiratory regular and easy and non-labored. Cap refill 4-5 seconds and bilateral hands are cold upon touch. Symmetrical rise and fall of chest. EMS applied 02 at 4L per N/C and 02 sat 100%. No S/S of respiratory distress noted. Patient with complaints she hasn't been able to have a BM in last 4 days. Patient with + BS times 4 quads. ABD large, obese, and non- distended. Upon palpiation of ABD no complaints of pain or discomfort. Patient denies any pain or burning upon urination. Patient states she is incontinent of bladder. Patient with non-pitting edema to bilateral lower extremities. Patient with + radial and pedal pulses noted bilateral. Patient states she has vomited times 4 today and describes emesis to be white and mucous. Patient denies any dark coffee ground emesis. Patient denies any cough or nasal drainage. Patient states she has had cold chills but is unaware if she has had any fevers for she hasn't checked her temp at home. Patient afebrile upon arrival to ED. Patient's central color pale. Patient states she hasn't had much of appetite last couple of days. Physician History: This is a morbidly obese 80-year-old white female who is a patient of Dr. [place] and presents with a 4-day history of weakness and abdominal pain as well as associated constipation. Patient vomited 4 times today as well. Patient was brought in by EMS service because of her symptoms. Patient has a history of congestive heart failure, coronary disease, COPD, arrhythmias and chronic fatigue syndrome. Patient has chronic anemia as well and typically her hemoglobin runs between 7 and 8.5. Timing/Duration: day(s) (4) Quality: aching, cramping Abdominal Pain Onset Location: generalized abdomen Severity of Pain-Max: moderate Severity of Pain-Current: mild (Mild to moderate) Modifying Factors: Improves With: nothing Associated Symptoms: vomiting, weakness, other (Constipation) Allergies/Adverse Reactions: venom-honey bee [bee venom (honey bee)] Allergy (Intermediate, Verified 04/10/21 19:29) colchicine Allergy (Mild, Verified 04/10/21 19:29) Hives Latex, Natural Rubber Allergy (Mild, Verified 04/10/21 19:29) Rash Sulfa (Sulfonamide Antibiotics) Allergy (Mild, Verified 04/10/21 19:29) Hives sulfamethoxazole [From Bactrim] Allergy (Mild, Verified 04/10/21 19:29) Rash trimethoprim [From Bactrim] Allergy (Mild, Verified 04/10/21 19:29) Rash Home Medications: Allopurinol 300 mg [Zyloprim 300 mg] 300 mg PO HS 12/08/15 [History] Metoprolol Succinate 50 mg [Toprol Xl 50 MG] 50 mg PO DAILY 12/08/15 [History] Nitroglycerin 0.4 mg Tablet [Nitrostat 0.4 MG Tablet] 0.4 mg SL Q5MIN PRN MR X 3 PRN 12/08/15 [History] Simvastatin 40 mg [Zocor 40 mg] 40 mg PO HS 12/08/15 [History] Fluticasone Propionate [Flonase NASAL] 16 gm NS BID 01/21/16 [History] Ergocalciferol (Vitamin D2) [Vitamin D] 50,000 unit PO UD 09/01/17 [History] Irbesartan 75 mg PO DAILY 09/01/17 [History] predniSONE [Prednisone] 5 mg PO DAILY 09/01/17 [History] Famotidine 20 mg [Pepcid 20 MG] 20 mg PO BID 09/02/17 [History] Docusate Sodium 100 mg [Colace 100 MG] 100 mg PO BID 06/29/19 [History] Fluticasone/Salmeterol [Advair 100-50 Diskus] 1 each IH DAILY PRN PRN 06/29/19 [History] Furosemide [Lasix] 40 mg PO DAILY 06/29/19 [History] Levothyroxine Sodium 50 mcg PO DAILY 06/29/19 [History] Apixaban [Eliquis] 2.5 mg PO BID 03/08/21 [History] Benzonatate [Tessalon Perle] 100 mg PO TID PRN PRN 03/08/21 [History] Loperamide HCl 2 mg [Imodium 2 mg] 2 mg PO Q4H PRN PRN 03/08/21 [History] Montelukast Sodium 10 mg [Singulair 10 MG] 10 mg PO DAILY 03/08/21 [History] Non-Formulary Drug [Non-Formulary Item] 100 mcg IH QID 03/08/21 [History] Hx Tetanus, Diphtheria Vaccination/Date Given: Yes Hx Influenza Vaccination/Date Given: Yes Hx Pneumococcal Vaccination/Date Given: Yes Immunizations Up to Date: Yes Travel Risk - International Travel Have you traveled outside of the country in past 3 weeks: No - Coronavirus Screening Are you exhibiting any of the following symptoms?: No - Vaccine Status Have you recieved a Covid-19 vaccination: Yes Chief Vendor Quality: Moderna - Vaccination Dates Date of 2cond Vaccination (if applicable): N/A Dates if Unknown: Unknown Comment: Patient stated she has had both Moderna vaccinations - Review of Systems Constitutional: Weakness Eyes: No Symptoms Ears, Nose, & Throat: No Symptoms Respiratory: No Symptoms Cardiac: No Symptoms Abdominal/Gastrointestinal: Abdominal Pain, Nausea, Vomiting, Constipation, No Diarrhea Genitourinary Symptoms: No Symptoms Musculoskeletal: No Symptoms Skin: No Symptoms Neurological: No Symptoms Psychological: No Symptoms Endocrine: No Symptoms Hematologic/Lymphatic: No Symptoms Immunological/Allergic: No Symptoms All Other Systems: Reviewed and Negative - Past Medical History Pertinent Past Medical History: Yes Neurological History: Migraines ENT History: Cataracts Cardiac History: Angina, Arrhythmia, Congestive Heart Failure, Coronary Artery Disease, High Cholesterol, Hypertension, Peripheral Vascular Disease Respiratory History: Asthma, CHF, COPD, Emphysema, Pneumonia, Other Endocrine Medical History: Hypothyroidism Musculoskeletal History: Degenerative Disk Disease GI Medical History: GERD, Hemorrhoids, Hernia, Polyps History: Other Psycho-Social History: Anxiety, Depression Female Reproductive Disorders: No Pertinent History Other Medical History: RESTRICTIVE LUNG DISEASE, OBESITY, SLEEP APNEA, CHRONIC FATIGUE. frequent UTIs - Past Surgical History Past Surgical History: Yes Neuro Surgical History: No Pertinent History Cardiac: Cardiac Catheterization Respiratory: No Pertinent History Gastrointestinal: Appendectomy, Cholecystectomy Genitourinary: No Pertinent History Musculoskeletal: Orthopedic Surgery Female Surgical History: Hysterectomy Other Surgical History: Bilateral knee surgery. cysts removed from ovaries. - Social History Smoking Status: Former smoker How long have you smoked: 30 years Exposure to second hand smoke: No Drug Use: none Patient Lives Alone: No Significant Family History: no pertinent family hx - Female History Hx Last Menstrual Period: POST - Nursing Vital Signs Nursing Vital Signs: Initial Vital Signs Temperature 98.1 F 04/10/21 19:24 Pulse Rate 53 L 04/10/21 19:24 Respiratory Rate 18 04/10/21 19:24 Blood Pressure 99/48 04/10/21 19:24 O2 Sat by Pulse Oximetry 95 04/10/21 19:24 Pain Scale Pain Intensity 9 - Physical Exam General Appearance: no apparent distress, alert, anxiety, obese Eye Exam: PERRL/EOMI, eyes nml inspection Ears, Nose, Throat Exam: normal ENT inspection, moist mucous membranes Neck Exam: normal inspection, non-tender, supple, full range of motion Respiratory Exam: normal breath sounds, lungs clear, airway intact, No chest tenderness, No respiratory distress Cardiovascular Exam: regular rate/rhythm, normal heart sounds, normal peripheral pulses Gastrointestinal/Abdomen Exam: soft, normal bowel sounds, tenderness, guarding, No rebound Pelvic Exam: not done Rectal Exam: not done Back Exam: normal inspection, normal range of motion, No CVA tenderness, No vertebral tenderness Extremity Exam: normal inspection, normal range of motion, pelvis stable Neurologic Exam: alert, oriented x 3, cooperative, 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 No change from comparison EKG dated 03/08/2021) Ordered Tests: Active Orders 24 hr Category Date Time Status EKG-ER Only STAT Care 04/10/21 19:49 Active IV Insertion STAT Care 04/10/21 19:49 Active ABDOMEN AND PELVIS W/0 CONTRAS [CT] Stat Exams 04/10/21 19:50 Ordered CHEST 1 VIEW (PORTABLE) Stat Exams 04/10/21 19:50 Taken AMYLASE Stat Lab 04/10/21 20:02 Completed CBC W DIFF Stat Lab 04/10/21 20:02 Completed CMP Stat Lab 04/10/21 20:02 Completed CULTURE,URINE Stat Lab 04/10/21 20:49 Received LIPASE Stat Lab 04/10/21 20:02 Completed Lactic Acid Stat Lab 04/10/21 19:49 Completed Lactic Acid Stat Lab 04/10/21 22:13 Received Manual Differential NC Stat Lab 04/10/21 20:02 Completed TROPONIN Q3H Lab 04/10/21 20:03 Completed TROPONIN Q3H Lab 04/10/21 23:00 Ordered TROPONIN Q3H Lab 04/11/21 02:00 Ordered TROPONIN Q3H Lab 04/11/21 05:00 Ordered TROPONIN Q3H Lab 04/11/21 08:00 Ordered UA W/RFX UR CULTURE Stat Lab 04/10/21 20:49 Completed Medication Summary Generic Name Dose Route Start Last Admin Trade Name Freq PRN Reason Stop Dose Admin Sodium Chloride 1,000 mls @ 100 mls/hr 04/10/21 20:00 04/10/21 20:04 Sodium Chloride 0.9% 1000 Ml IV 05/10/21 19:59 100 mls/hr .Q10H JAMEE Administration Discontinued Medications Generic Name Dose Route Start Last Admin Trade Name Freq PRN Reason Stop Dose Admin Ceftriaxone Sodium/Dextrose 1 g in 50 mls @ 100 mls/hr 04/10/21 21:42 04/10/21 21:52 Rocephin 1 Gm-D5w 50 Ml Bag IV 04/10/21 22:11 100 ml/hr STAT STA 100 mls/hr Administration Ceftriaxone Sodium/Dextrose Confirm 04/10/21 21:48 Rocephin 1 Gm-D5w 50 Ml Bag Administered 04/10/21 21:49 Dose 1 g in 50 mls @ ud IV .STK-MED ONE Ondansetron HCl 4 mg 04/10/21 19:49 04/10/21 20:04 Ondansetron Hcl 4 Mg/2 Ml Vial IV 04/10/21 19:50 4 mg STAT ONE Administration Ondansetron HCl Confirm 04/10/21 20:01 Ondansetron Hcl 4 Mg/2 Ml Vial Administered 04/10/21 20:02 Dose 4 mg .ROUTE .K-MED ONE Lab/Rad Data: Laboratory Result Diagrams 04/10/21 20:02 04/10/21 20:02 Laboratory Results 04/10/21 04/10/21 04/10/21 Range/Units 20:49 20:03 20:02 WBC (4.0-10.5) K/mm3 RBC (4.1-5.4) M/mm3 Hgb (12.0-16.0) gm/dl Hct (35-47) % MCV (78-100) fl MCH (26-32) pg MCHC (32-36) g/dl RDW (11.5-14.0) % Plt Count (150-450) K/mm3 MPV (7.5-11.0) fl Sodium 137 (137-145) mmol/L Potassium 4.3 (3.5-5.1) mmol/L Chloride 100 (98-107) mmol/L Carbon Dioxide 23 (22-30) mmol/L Anion Gap 17.7 H (5-15) MEQ/L BUN 39 H (7-17) mg/dL Creatinine 2.19 H (0.52-1.04) mg/dL Estimated GFR 23.1 ML/MIN Glucose 127 H (74-106) mg/dL Lactic Acid (0.4-2.0) Calcium 9.1 (8.4-10.2) mg/dL Total Bilirubin 1.30 (0.2-1.3) mg/dL AST 22 (14-36) U/L ALT 22 (0-35) U/L Alkaline Phosphatase 118 (38-126) U/L Troponin I 0.018 (0.000-0.034) ng/mL Serum Total Protein 6.8 (6.3-8.2) g/dL Albumin 3.9 (3.5-5.0) g/dL Amylase 49 (30-110) U/L Lipase 37 (23-300) U/L Urine Color YELLOW (YELLOW) Urine Appearance SLIGHTLY CLOUDY (CLEAR) Urine pH 9.0 (5-6) Ur Specific [place] 1.009 (1.005-1.025) Urine Protein NEGATIVE (Negative) Urine Ketones NEGATIVE (NEGATIVE) Urine Blood NEGATIVE (0-5) Evaristo/ul Urine Nitrite NEGATIVE (NEGATIVE) Urine Bilirubin NEGATIVE (NEGATIVE) Urine Urobilinogen NEGATIVE (0-1) mg/dL Ur Leukocyte Esterase LARGE (NEGATIVE) Urine WBC (Auto) >100 (0-5) /HPF Urine RBC (Auto) 6-10 (0-2) /HPF U Epithel Cells (Auto) NONE (FEW) /HPF Urine Bacteria (Auto) MANY (NEGATIVE) /HPF Urine Culture Reflexed YES (NO) Urine Glucose NEGATIVE (NEGATIVE) mg/dL 04/10/21 04/10/21 Range/Units 20:02 19:49 WBC 8.8 (4.0-10.5) K/mm3 RBC 2.82 L (4.1-5.4) M/mm3 Hgb 7.7 L (12.0-16.0) gm/dl Hct 26.6 L (35-47) % MCV 94.3 (78-100) fl MCH 27.3 (26-32) pg MCHC 28.9 L (32-36) g/dl RDW 18.8 H (11.5-14.0) % Plt Count 370 (150-450) K/mm3 MPV 11.5 H (7.5-11.0) fl Sodium (137-145) mmol/L Potassium (3.5-5.1) mmol/L Chloride (98-107) mmol/L Carbon Dioxide (22-30) mmol/L Anion Gap (5-15) MEQ/L BUN (7-17) mg/dL Creatinine (0.52-1.04) mg/dL Estimated GFR ML/MIN Glucose (74-106) mg/dL Lactic Acid 5.2 H (0.4-2.0) Calcium (8.4-10.2) mg/dL Total Bilirubin (0.2-1.3) mg/dL AST (14-36) U/L ALT (0-35) U/L Alkaline Phosphatase (38-126) U/L Troponin I (0.000-0.034) ng/mL Serum Total Protein (6.3-8.2) g/dL Albumin (3.5-5.0) g/dL Amylase (30-110) U/L Lipase (23-300) U/L Urine Color (YELLOW) Urine Appearance (CLEAR) Urine pH (5-6) Ur Specific [place] (1.005-1.025) Urine Protein (Negative) Urine Ketones (NEGATIVE) Urine Blood (0-5) Evaristo/ul Urine Nitrite (NEGATIVE) Urine Bilirubin (NEGATIVE) Urine Urobilinogen (0-1) mg/dL Ur Leukocyte Esterase (NEGATIVE) Urine WBC (Auto) (0-5) /HPF Urine RBC (Auto) (0-2) /HPF U Epithel Cells (Auto) (FEW) /HPF Urine Bacteria (Auto) (NEGATIVE) /HPF Urine Culture Reflexed (NO) Urine Glucose (NEGATIVE) mg/dL - Progress Progress: improved Progress Note: 04/10/21 22:27 Medical decision making: This patient had a large bowel movement in her room and no longer has abdominal pain. We will cancel the CAT scan of the abdomen pelvis. The patient was also found to have a significant urinary tract infection. This would account for the majority of her symptoms. In addition, the patient has chronic anemia and typically her hemoglobins run between 8.5 and 7.0 which is where it is today. We will provide her with intravenous antibiotics here and then discharge her to home with antiemetics as well as antibiotics. She is to follow-up with her primary care doctor for further management. Counseled pt/family regarding: lab results, diagnosis, need for follow-up - Departure Departure Disposition: Home Clinical Impression: Chronic anemia, UTI (urinary tract infection) Condition: Stable Critical Care Time: No Referrals: KENNA BIRMINGHAM MD [Primary Care Provider] - Follow up/PCP as directed Additional Instructions: Drink plenty of fluids. Take your medication as prescribed. Follow-up with your primary care doctor tomorrow for further work-up and management. Prescriptions: Ondansetron ODT 4 MG [Zofran Odt 4 mg] 4 mg PO Q6H PRN PRN #10 tablet PRN Reason: Vomiting Ciprofloxacin [Cipro 500 MG] 500 mg PO BID #14 tablet
[2021-04-10] MEDS ORDERED: Zofran 4 MG/2 ML VIAL ONE (20:01)
[2021-04-10] MEDS ORDERED: Sodium Chloride 0.9% 1000 ML 1,000 ML ONE (20:01)
[2021-04-10] MEDS: Zofran 4 MG/2 ML VIAL IV ONE (20:04)
[2021-04-10] MEDS: Sodium Chloride 0.9% 1000 ML 1,000 ML IV SCH (20:04)
[2021-04-10 20:05] LABS: Hematocrit 26.6 % (35-47); Hemoglobin 7.7 gm/dl (12.0-16.0); Mean Cell Volume 94.3 fl (78-100); Mean Corpuscular Hemoglobin 27.3 pg (26-32); Mean Corpuscular Hgb Concent. 28.9 g/dl (32-36); Mean Platelet Volume 11.5 fl (7.5-11.0); Platelet Count 370 K/mm3 (150-450); Red Blood Count 2.82 M/mm3 (4.1-5.4); Red Cell Distribution Width 18.8 % (11.5-14.0); White Blood Count 8.8 K/mm3 (4.0-10.5)
[2021-04-10 20:14] LABS: ALBUMIN 3.9 g/dL (3.5-5.0); ANION GAP 17.7 MEQ/L (5-15); BILIRUBIN,TOTAL 1.3 mg/dL (0.2-1.3); Calcium 9.1 mg/dL (8.4-10.2); Creatinine 1 2.19 mg/dL (0.52-1.04); EST GLOMERULAR FILTRATION RATE 23.1 ML/MIN; Potassium 4.3 mmol/L (3.5-5.1); Total Protein 6.8 g/dL (6.3-8.2)
[2021-04-10 21:01] LABS: Appearance SLIGHTLY CLOUDY (CLEAR); Bacteria MANY /HPF (NEGATIVE); Bilirubin NEGATIVE (NEGATIVE); Blood NEGATIVE Ery/ul (0-5); Glucose NEGATIVE (NEGATIVE); Ketones NEGATIVE (NEGATIVE); Leukocyte Esterase LARGE (NEGATIVE); Nitrite NEGATIVE (NEGATIVE); Protein,Urine Dip NEGATIVE (Negative); Specific Gravity 1.009 (1.005-1.025); Urobilinogen NEGATIVE mg/dL (0-1); WBC >100 /HPF (0-5)
[2021-04-10] MEDS ORDERED: ROCEPHIN 1 Gm-D5w 50 ml Bag** 1 G/50 ML IVPB IV ONE (21:48)
[2021-04-10] MEDS: ROCEPHIN 1 Gm-D5w 50 ml Bag** 1 G/50 ML IVPB IV STA (21:52)
[2021-04-10 23:55] LABS: Basophil 1 % (0.0-1.0); Eosinophil 3 % (0.00-3.0); Lymphocytes 20 % (24-44); Monocyte 11 % (0.0-12.0); Neutrophils 65 % (36.0-66.0); Platelet Estimate NORMAL (NORMAL); Total Cells Counted 100
[2021-04-10 23:56] LABS: ANISOCYTOSIS 1+
[2021-04-11 01:01] VITALS: BP 95/72; PULSE 73; O2SAT 98
--- NOTE | 2021-04-11 08:43 | XRAY ---
Indication: Cough. Comparison: February 26, 2020. Portable apical lordotic chest again demonstrates minimal left base subsegmental atelectasis/scarring. Remaining heart and lungs unremarkable. Bony thorax intact again with mild degenerative changes and chronic distal right clavicle deformity. Impression: Continued nonacute chest with chronic features.
== END 2021-04-11 00:10 | disposition home or self-care (01) ==
LOC: ED 19:22
DX: N39.0 Urinary tract infection, site not specified (principal); D53.9 Nutritional anemia, unspecified; R53.1 Weakness; R11.11 Vomiting without nausea; K59.00 Constipation, unspecified; I11.0 Hypertensive heart disease with heart failure; I50.9 Heart failure, unspecified
CPT/HCPCS: 36000; 36415; 71045; 80053; 81001; 82150; 83605; 83690; 84484; 85025; 87077; 87086; 87186; 93005; 96374; 99284; J0696; J2405